=== PATIENT | female | born 1935 | race Caucasian/White ===

== ENCOUNTER → 2017-03-28 | Outpatient (CLI) | payer OTHER ==
[~2017-03-28] MED LIST: ASPEC325 PO; ATOR-24 PO; ERGO500037 PO; FERR1TAB13 PO; LEVO75TA5 PO; LORA-741 PO; RRALBUTNEB INH; TIOT1AER INH
[2017-03-28 15:00] LABS: ALT/SGPT 15 U/L (12-78); BLOOD UREA NITROGEN 16 mg/dl (7-18); BUN/CREATININE RATIO 27.9 (10-20); CARBON DIOXIDE 31 mmol/L (21-32); CHLORIDE 103 mmol/L (98-107); CREATININE 0.58 mg/dl (0.60-1.20); GLUCOSE 94 mg/dl (70-99); SODIUM 141 mmol/L (136-145)
[2017-03-28 15:03] LABS: ALB/GLOB RATIO 0.7 (0.9-2); ALKALINE PHOSPHATASE 106 U/L (45-117); AST/SGOT 25 U/L (15-37); CHOLESTEROL 140 mg/dl (0-200); CHOLESTEROL/HDL RATIO 2.5; HDL CHOLESTEROL 57 mg/dl; LDL CHOLESTEROL CALCULATED 65 mg/dl; TRIGLYCERIDES 90 mg/dl (0-150); VERY LOW DENSITY LIPOPROT CALC 18 mg/dl
[2017-03-28 15:07] LABS: CALCIUM 9.6 mg/dl (8.5-10.1)
== END | disposition home or self-care (01) ==
LOC: C.LABPVFM 08:36
PROVIDERS: ATTEND Family Medicine
DX: J44.9 Chronic obstructive pulmonary disease, unspecified (principal); E03.9 Hypothyroidism, unspecified; M81.0 Age-related osteoporosis without current pathological fracture; E78.5 Hyperlipidemia, unspecified

== ENCOUNTER → 2017-04-12 | Outpatient (CLI) | payer OTHER ==
--- NOTE | 2017-04-18 07:46 | PULMONARY FUNCTION TEST ---
Interpretation is based off ATS criteria. SPIROMETRY: Mild obstructive ventilatory disease. FVC 61%. No significant reversibility noted. LUNG VOLUMES: Signs of hyperinflation with an RV of 144%. DIFFUSION: Moderately decreased DLCO at 59% with DLCO/VA ratio at 86%. INTERPRETATION: Moderately severe obstructive ventilatory disease with possible residual volume deficit as well.
== END | disposition home or self-care (01) ==
LOC: C.RC 10:42
PROVIDERS: ATTEND Physician Assistant
DX: J44.9 Chronic obstructive pulmonary disease, unspecified (principal)

== ENCOUNTER → 2017-08-16 | Outpatient (CLI) | payer OTHER ==
[~2017-08-16] MED LIST changes: -ERGO500037 PO; -FERR1TAB13 PO
--- NOTE | 2017-08-16 16:18 | DIAGNOSTIC IMAGING REPORT ---
CT OF THE CHEST WITHOUT IV CONTRAST CLINICAL HISTORY: Lung cancer. Pulmonary nodule. COMPARISON STUDY: Chest CT September 25, 2016. CT DOSE: 203.71 mGy.cm TECHNIQUE: Axial images of the chest were obtained without IV contrast. Images were reviewed in the axial, sagittal, and coronal planes. IV contrast was not administered for this examination. A dose lowering technique was utilized adhering to the principles of ALARA. FINDINGS: Postoperative findings within the left upper lobe are noted. A left apical cavity, measuring 8.8 x 6.1 cm, is again noted. The wall is thickened and irregular. This irregularity has increased since exam of September 25, 2016. Left lung bronchiectasis is noted with multifocal mucoid impaction. There has been interval development of multifocal irregular nodules throughout the left lung since exam of September 25, 2016 with more confluent left midlung consolidation. Several nodules have a tree-in-bud configuration. Left hemithorax pleural thickening is similar to prior exams. No enlarged thoracic lymph nodes are present. A prominent prevascular lymph node, measuring 8 mm in short axis diameter, is unchanged. Size of the heart is normal. There is no pericardial effusion. There is no pneumothorax. A 6 mm right lower lobe nodule shown image 193 of 326 has increased in size since exam of September 25, 2016 when it measured 4 mm. Several additional right lung nodules are unchanged, including several small groundglass right upper lobe nodules shown best on axial image 100. No suspicious osseous lesions are present. Multiple suspected hepatic cysts and a left renal cysts are unchanged. These are suboptimally assessed on this unenhanced exam. IMPRESSION: 1. Persistent left apical cavity status post left upper lobe resection. Interval development of irregular wall thickening of the cavity and interval development of extensive irregular multifocal nodules throughout the left lung since chest CT of September 25, 2016. The findings favor an infectious process. Although statistically unlikely, tuberculosis is within the differential. A neoplastic process could appear similar although is considered less likely. Short-term imaging follow-up with a CT in one to two months is recommended. Findings discussed with Keila Hamilton at time of dictation. 2. Slight increase in size of a 6 mm right lower lobe nodule since prior exam. This nodule is indeterminate and should be assessed on subsequent studies. Electronically signed by: Jean-Paul Colunga M.D. 08/16/2017 4:16 PM Dictated Date/Time: 08/16/2017 3:25 PM
== END | disposition home or self-care (01) ==
LOC: C.CTS 15:03
PROVIDERS: ATTEND Physician Assistant
DX: C34.90 Malignant neoplasm of unspecified part of unspecified bronchus or lung (principal); R91.1 Solitary pulmonary nodule; R91.8 Other nonspecific abnormal finding of lung field; Z90.2 Acquired absence of lung [part of]

== ENCOUNTER → 2017-09-02 | Outpatient (CLI) | payer OTHER ==
[2017-09-05 11:50] LABS: QUANTIF TB AG-NIL 0.04 IU/ML; QUANTIFERON NIL 0.05 IU/ML
== END | disposition home or self-care (01) ==
LOC: C.LAB 11:14
PROVIDERS: ATTEND Internal Medicine Pulmonary Disease
DX: E55.9 Vitamin D deficiency, unspecified (principal); C34.90 Malignant neoplasm of unspecified part of unspecified bronchus or lung; R05 Cough

== ENCOUNTER → 2017-09-13 | Day surgery (SDC) | payer OTHER ==
[2017-09-13] VITALS (22 sets, daily range): BP systolic 89–157; BP diastolic 48–80; PULSE 78–99; TEMP 36.1–36.6; O2SAT 90–100; Ht 157.5 cm; Wt 34.0 kg
[~2017-09-13] VITALS: Ht 157.5 cm; Wt 34.0 kg
[~2017-09-13] MED LIST changes: +ERGO500037 PO; +FENTANYL CITRATE INJ 50 MCG/1 ML 2 ML VIAL IV ONE; +FERR1TAB13 PO; +LIDOCAINE 4% INH SOLN 4 ML BTL ONE; +LIDOCAINE HCL 2% LOCAL 50ML VIAL INFIL ONE; +MIDAZOLAM HCL 5 MG/ML 1 ML VIAL IV ONE; +MIDAZOLAM HCL 5 MG/ML 2ML VIAL IV ONE; +NURSING VERBAL MED ORDER ONE
--- NOTE | 2017-09-13 07:08 | History and Physical ---
History & Physical Date of Service Sep 13, 2017. History & Physical Reason for bronchoscopy: Left upper lobe changes History of present illness: Patient is an 82-year-old female presenting to [facility] today for bronchoscopic evaluation regarding left upper lobe changes. The patient previously had left upper lobectomy following diagnosis of non-small cell carcinoma. She has a long-standing history of smoking. Her lobectomy was completed in 2010. She does also have history of severe COPD, ischemic cardiac disease, hypothyroidism, and previous left-sided stroke. Following the patient' s previous left upper lobectomy, she did not receive any chemotherapy or postoperative radiation. She was followed with serial CT scans. It is noted that the patient was admitted to [facility] for probable pneumonia in January 2016. At that time, she had a CT scan which showed diffuse left apical consolidation with air bronchograms in multiple cavitary formation, small bilateral effusions, and severe bronchiectasis on the left. She was placed on cefepime, ertapenem, and Augmentin at that time. She underwent bronchoscopy in December 2015 which showed compression of the left mainstem. The patient has also followed with Dr. guerline cardoza after lobectomy. Patient has had multiple repeat CT scans since/year which have shown left apical cavity with scattered tree-in-bud nodules. Patient did have pulmonary function test completed in March 2017 which showed an FEV1 of 1.12 liters or 70% predicted, and FEV1/FVC ratio of 81% predicted. Market hyperinflation and air trapping was noted at that time. The patient has also lost a significant amount of weight over the past 1 year. She only weighs approximately 78 pounds. Her appetite is poor, and she has had a persistent cough, purulent sputum without hemoptysis, and early satiety. Patient underwent repeat CT scan on 08/16/2017 which showed persistent left apical cavity status post left upper lobe resection with interval development of her regular wall thickening of the cavity and extensive irregular multifocal nodules throughout the left lung which were new since the CT scan in September 2016. This patient was reviewed with Dr. Gipson. Films were reviewed by me as well. 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 Past medical history: COPD, acute URI, familial hypercholesterolemia, malignant neoplasm of the bronchus and lung, nicotine dependence, hypothyroidism, osteoporosis, weight loss Past surgical history: Leg repair, lung lobectomy Family history: Heart disease, gastric ulcer Social history: Alcohol use, current some days smoker, retired, Allergies: Tylenol/codeine #2, codeine derivatives Current medications: Lorazepam 0.5 mg up to twice daily as needed, mirtazapine 15 mg daily at bedtime , Stiolto rest per mat, atorvastatin 40 mg daily, levothyroxine 75 micrograms daily, aspirin 325 mg daily, vitamin-D 19223 units once weekly, ferrous sulfate Physical exam: General: Patient is awake, alert, cooperative, and in no acute distress. Well developed. Well-nourished. Skin: Normal appearance, texture, and temperature. No apparent rash or ecchymoses. HEENT: Normocephalic and atraumatic. Eyes are anicteric and non-erythematous. EOMI c PERRLA. Hearing intact and without difficulty. Nose appears normal and without drainage. Trachea midline. Thyroid appears normal, and neck is supple. Lungs: No respiratory distress. No accessory muscle use. Heart: Regular rate and rhythm. Extremities: No cyanosis. Musculoskeletal: Gait normal and without difficulty. Freely moving extremities during exam. Neuro: Alert and oriented X3. CN II-XII grossly intact. Sensation and motor function grossly intact. Psych: Mood and affect are normal. Assessment and plan: History of left upper lobe non-small cell carcinoma with lobectomy and cavitary lesion. Plan for bronchoscopic evaluation today.
--- NOTE | 2017-09-13 09:25 | History & Physical Bridge Note ---
H&P Re-Evaluation Bridge Note: I have examined the patient, reviewed the History & Physical and in the interval since the performance of the History & Physical I have noted the following changes of clinical significance: No changes noted
--- NOTE | 2017-09-13 09:26 | Procedure Note ---
Pre-Mod Sedation Assessment General Date of Moderate Sedation: Sep 13, 2017. Vital Signs: Vital Signs Past 12 Hours Date Time Temp Pulse Resp B/P (MAP) Pulse Ox O2 Delivery O2 Flow Rate FiO2 09/13/17 08:43 36.4 95 18 100/53 (69) 97 Room Air Review Cardiovascular: regular rate, rhythm, no edema, no gallop, no JVD, + pertinent finding Abdomen: normal bowel sounds, non tender, soft, no organomegaly Lungs: + pertinent finding (rhonchi bilaterally overload decreased left apical anterior subsegment) Pre-Sedation Airway Assessment Oral Cavity: Dentures Able to Visualize Vocal Cords: Yes Short Thick Neck: No Hx of Sleep Apnea: No Smoking Status: Light Tobacco Smoker Mallampati Classification: Class III ASA Classification: Class IV Procedure Planning Contraindications-for Mod Sed: None Yes Notes The planned sedation has been discussed with the patient and consent obtained. I have identified the patient, determined the appropriateness of sedation and have assessed the patient immediately prior to the procedure. All medicine(s) and interventions are by my order.
--- NOTE | 2017-09-13 11:01 | Procedure Note ---
Post-Moderate Sedation Plan General Date of Moderate Sedation Sep 13, 2017. Vital Signs: Vital Signs Past 12 Hours Date Time Temp Pulse Resp B/P (MAP) Pulse Ox O2 Delivery O2 Flow Rate FiO2 09/13/17 10:50 98 24 97/48 95 Mask 10.0 09/13/17 10:45 98 24 96/50 90 Mask 15.0 09/13/17 10:40 97 24 118/58 90 Mask 15.0 09/13/17 10:35 93 24 141/68 90 Mask 15.0 09/13/17 10:30 99 24 157/80 95 Mask 8.0 09/13/17 10:25 89 20 126/55 100 Mask 8.0 09/13/17 10:20 83 20 99/51 100 Mask 8.0 09/13/17 10:15 85 20 114/52 100 Mask 8.0 09/13/17 10:10 86 20 108/55 100 Mask 8.0 09/13/17 10:05 88 20 89/51 100 Mask 8.0 09/13/17 10:00 84 20 103/53 100 Room Air 09/13/17 09:55 86 20 114/56 Room Air 09/13/17 09:53 86 20 106/59 Room Air 09/13/17 09:38 36.4 95 18 100/53 97 Room Air 09/13/17 08:43 36.4 95 18 100/53 (69) 97 Room Air Review - Discharge Plan Post Moderate Sedation Plan: On clinical assessment, the patient appears to have tolerated the conscious sedation without complications. Patient is recovering as anticipated. Patient will continue to be monitored by nursing and may be discharged when conscious sedation discharge criteria are met.
--- NOTE | 2017-09-13 11:05 | Bronchoscopy Procedure Note ---
Bronchoscopy Procedure Note Procedure: Bronchoscopy, conscious sedation, bronchial washing Consent: Obtained through the patient placed into the chart Pre-procedural diagnosis: Chronic productive cough, cavitary mass Post-procedural diagnosis: Chronic productive cough, cavitary mass, tracheobronchial malacia Start time: 1020 End time: 1033 Total time: minutes Analgesia: 2% liquid lidocaine: Via nebulizer 4% gel lidocaine: Via right naris 2% liquid lidocaine: Via bronchoscopy Sedation: Versed IV: 3 mg Fentanyl IV: 50 g Procedure: The Olympus video bronchoscope was used for this procedure and passed down through the oropharynx Right naris/posterior naris/posterior oropharynx: Anatomically within normal limits Glottis: Anatomically within normal limits Vocal cords: anatomically within normal limits, with unable to fully appreciate abduction or abduction in this patient Subglottis/trachea/Bianca: Anatomically within normal limits, mild anthracotic changes noted throughout the bianca Right bronchial tree: Right mainstem bronchus: Anatomically within normal limits Right upper lobe: Anatomically within normal limits Bronchus intermedius: Anatomically within normal limits Right middle lobe: Anatomically within normal limits Right lower lobe: Anatomically within normal limits Findings: Mild anthracotic changes throughout the right bronchial tree Left bronchial tree: Left mainstem bronchus: Distal end of the left upper lobe notable severe posterior wall invagination as well some mild crescent min tracheal changes Left upper lobe: Complete obstruction unable to visualize previous surgical site Lingula: Completely obstructed unable to visualize previous surgical site Left lower lobe: Notably rotated clockwise mildly unable to visualize the takeoff to the superior subsegment and minimal visualization of the basal per minutes Mostly obstructed view secondary to tracheobronchial malacia at the takeoff/secondary bianca Findings: Significant tracheobronchial malacia at the secondary bianca Bronchial washing: Distal portion of the left mainstem EBL: None Complications: None Follow-up: ASU
--- NOTE | 2017-09-13 11:08 | Discharge Instructions ---
Discharge Instructions Date of Service Sep 13, 2017. Admission Reason for Admission: Chronic Cough, Copd Discharge Discharge Diagnosis / Problem: Tracheobronchial malacia post obstructive pneumonia Discharge Goals Goal(s): Diagnostic testing Activity Recommendations Activity Limitations: resume your previous activity . Instructions / Follow-Up Instructions / Follow-Up Follow-up with Dr. Paolo Gipson in the [facility] Current Hospital Diet Patient's current hospital diet: Discharge Diet Recommended Diet: Regular Diet Procedures Procedures Performed: Bronchoscopy, bronchial lavage, conscious sedation Pending Studies Studies pending at discharge: no Medical Emergencies . Who to Call and When: Medical Emergencies: If at any time you feel your situation is an emergency, please call 911 immediately. . Non-Emergent Contact Non-Emergency issues call your: Assistant To The Dean . . "Provider Documentation" section prepared by Sebastien Chapman. . VTE Core Measure Inpt VTE Proph given/why not?: Treatment not indicated
== END | disposition home or self-care (01) ==
LOC: C.ACU 08:18
PROVIDERS: ATTEND Internal Medicine Critical Care Medicine
DX: R91.8 Other nonspecific abnormal finding of lung field (principal); R05 Cough; J39.8 Other specified diseases of upper respiratory tract; F41.9 Anxiety disorder, unspecified; Z90.2 Acquired absence of lung [part of]; I25.10 Atherosclerotic heart disease of native coronary artery without angina pectoris; J44.9 Chronic obstructive pulmonary disease, unspecified; E78.5 Hyperlipidemia, unspecified; E03.9 Hypothyroidism, unspecified; M81.0 Age-related osteoporosis without current pathological fracture; E55.9 Vitamin D deficiency, unspecified; Z86.73 Personal history of transient ischemic attack (TIA), and cerebral infarction without residual deficits; Z85.118 Personal history of other malignant neoplasm of bronchus and lung; F17.200 Nicotine dependence, unspecified, uncomplicated; Z82.49 Family history of ischemic heart disease and other diseases of the circulatory system; Z83.79 Family history of other diseases of the digestive system

== ENCOUNTER → 2017-11-24 | Outpatient (CLI) | payer OTHER ==
[~2017-11-24] MED LIST changes: -ATOR-24 PO; -FENTANYL CITRATE INJ 50 MCG/1 ML 2 ML VIAL IV ONE; -LIDOCAINE 4% INH SOLN 4 ML BTL ONE; -LIDOCAINE HCL 2% LOCAL 50ML VIAL INFIL ONE; -MIDAZOLAM HCL 5 MG/ML 1 ML VIAL IV ONE; -MIDAZOLAM HCL 5 MG/ML 2ML VIAL IV ONE; -NURSING VERBAL MED ORDER ONE
[2017-11-24 12:41] LABS: BASO % 0.2 %; BASO ABS # 0.02 K/uL (0-0.2); EOS % 0.5 %; EOS ABS # 0.05 K/uL (0-0.5); HEMATOCRIT 37.8 % (37-47); HEMOGLOBIN 11.8 g/dL (12.0-16.0); IG# 0.04 K/uL (0.00-0.02); LYMPH ABS # 1.54 K/uL (1.2-3.4); MEAN CELL VOLUME 83.6 fL (80-100); MEAN CORPUSCULAR HEMOGLOBIN 26.1 pg (25-34); MEAN CORPUSCULAR HGB CONC 31.2 g/dl (32-36); MEAN PLATELET VOLUME 9.6 fL (7.4-10.4); MONO % 11.6 %; MONO ABS # 1.27 K/uL (0.11-0.59); NEUT % 73.3 %; NEUT ABS # 8.06 K/uL (1.4-6.5); PLATELET COUNT 413 K/uL (130-400); RED CELL DISTRIBUTION WIDTH CV 18.1 % (11.5-14.5); RED CELL DISTRIBUTION WIDTH SD 54.8 fL (36.4-46.3); WHITE BLOOD COUNT 10.98 K/uL (4.8-10.8)
[2017-11-24 13:17] LABS: ALBUMIN 2.3 gm/dl (3.4-5.0); ALT/SGPT 14 U/L (12-78); AST/SGOT 19 U/L (15-37); BLOOD UREA NITROGEN 18 mg/dl (7-18); CALCIUM 8.5 mg/dl (8.5-10.1); CARBON DIOXIDE 31 mmol/L (21-32); CREATININE 0.46 mg/dl (0.60-1.20); GLUCOSE 92 mg/dl (70-99); POTASSIUM 4.1 mmol/L (3.5-5.1); SODIUM 134 mmol/L (136-145)
[2017-11-24 13:18] LABS: ALKALINE PHOSPHATASE 91 U/L (45-117); TOTAL PROTEIN 6.1 gm/dl (6.4-8.2)
== END | disposition home or self-care (01) ==
LOC: C.LABSALHI 10:02
PROVIDERS: ATTEND Nurse Practitioner Family
DX: R10.9 Unspecified abdominal pain (principal)

== ENCOUNTER → 2018-01-03 | Outpatient (CLI) | payer BC ==
[2018-01-03 17:26] LABS: BASO % 0.2 %; BASO ABS # 0.02 K/uL (0-0.2); EOS % 0.9 %; EOS ABS # 0.09 K/uL (0-0.5); HEMATOCRIT 39.3 % (37-47); HEMOGLOBIN 12.6 g/dL (12.0-16.0); IG# 0.03 K/uL (0.00-0.02); LYMPH % 19.1 %; LYMPH ABS # 1.89 K/uL (1.2-3.4); MEAN CELL VOLUME 85.1 fL (80-100); MEAN CORPUSCULAR HEMOGLOBIN 27.3 pg (25-34); MEAN CORPUSCULAR HGB CONC 32.1 g/dl (32-36); MEAN PLATELET VOLUME 9.1 fL (7.4-10.4); MONO % 9.3 %; MONO ABS # 0.92 K/uL (0.11-0.59); NEUT % 70.2 %; NEUT ABS # 6.95 K/uL (1.4-6.5); PLATELET COUNT 594 K/uL (130-400); RED CELL DISTRIBUTION WIDTH CV 18.1 % (11.5-14.5); RED CELL DISTRIBUTION WIDTH SD 55.9 fL (36.4-46.3)
[2018-01-03 17:37] LABS: ALBUMIN 3.1 gm/dl (3.4-5.0); ALKALINE PHOSPHATASE 96 U/L (45-117); ALT/SGPT 18 U/L (12-78); AST/SGOT 24 U/L (15-37); TOTAL PROTEIN 7.8 gm/dl (6.4-8.2)
== END | disposition home or self-care (01) ==
LOC: C.LAB1850 16:03
PROVIDERS: ATTEND Internal Medicine Pulmonary Disease
DX: R05 Cough (principal)

== ENCOUNTER → 2018-01-31 | Outpatient (CLI) | payer BC ==
[2018-01-31 13:04] LABS: BASO % 0.5 %; BASO ABS # 0.04 K/uL (0-0.2); EOS % 1.4 %; EOS ABS # 0.11 K/uL (0-0.5); HEMATOCRIT 41.3 % (37-47); HEMOGLOBIN 13.1 g/dL (12.0-16.0); IG# 0.01 K/uL (0.00-0.02); LYMPH % 26.1 %; LYMPH ABS # 2.11 K/uL (1.2-3.4); MEAN CELL VOLUME 85.7 fL (80-100); MEAN CORPUSCULAR HEMOGLOBIN 27.2 pg (25-34); MEAN CORPUSCULAR HGB CONC 31.7 g/dl (32-36); MEAN PLATELET VOLUME 9.4 fL (7.4-10.4); MONO ABS # 0.89 K/uL (0.11-0.59); NEUT % 60.9 %; NEUT ABS # 4.92 K/uL (1.4-6.5); PLATELET COUNT 540 K/uL (130-400); RED CELL DISTRIBUTION WIDTH CV 15.9 % (11.5-14.5); WHITE BLOOD COUNT 8.08 K/uL (4.8-10.8)
[2018-01-31 14:03] LABS: ALBUMIN 3.2 gm/dl (3.4-5.0); ALKALINE PHOSPHATASE 96 U/L (45-117); ALT/SGPT 11 U/L (12-78); AST/SGOT 23 U/L (15-37); TOTAL PROTEIN 7.7 gm/dl (6.4-8.2)
== END | disposition home or self-care (01) ==
LOC: C.LABPVFM 11:30
PROVIDERS: ATTEND Internal Medicine Pulmonary Disease
DX: C34.90 Malignant neoplasm of unspecified part of unspecified bronchus or lung (principal)

== ENCOUNTER 2018-02-25 17:45 | Emergency (ER) | payer BC ==
[~2018-02-25] VITALS: Ht 157.5 cm; Wt 38.7 kg
[2018-02-25 17:56] VITALS: TEMP 36.6; Ht 157.5 cm; Wt 38.7 kg
[2018-02-25] MEDS ORDERED: SODIUM CHLORIDE 0.9% 500ML 500 ML IV STA (18:08)
[2018-02-25 18:25] LABS: BASO % 0.2 %; BASO ABS # 0.02 K/uL (0-0.2); EOS % 0.8 %; EOS ABS # 0.07 K/uL (0-0.5); HEMATOCRIT 36.4 % (37-47); HEMOGLOBIN 11.7 g/dL (12.0-16.0); IG# 0.02 K/uL (0.00-0.02); LYMPH % 19.2 %; LYMPH ABS # 1.72 K/uL (1.2-3.4); MEAN CELL VOLUME 82.9 fL (80-100); MEAN CORPUSCULAR HEMOGLOBIN 26.7 pg (25-34); MEAN CORPUSCULAR HGB CONC 32.1 g/dl (32-36); MEAN PLATELET VOLUME 8.6 fL (7.4-10.4); MONO % 8.9 %; NEUT % 70.7 %; NEUT ABS # 6.34 K/uL (1.4-6.5); PLATELET COUNT 420 K/uL (130-400); RED CELL DISTRIBUTION WIDTH SD 45.8 fL (36.4-46.3); WHITE BLOOD COUNT 8.97 K/uL (4.8-10.8)
[2018-02-25 18:34] LABS: INR 1.1 (0.9-1.1)
[2018-02-25 18:39] LABS: ALBUMIN 2.7 gm/dl (3.4-5.0); BLOOD UREA NITROGEN 10 mg/dl (7-18); CALCIUM 8.9 mg/dl (8.5-10.1); CARBON DIOXIDE 30 mmol/L (21-32); CREATININE 0.68 mg/dl (0.60-1.20); GLUCOSE 99 mg/dl (70-99); POTASSIUM 3.8 mmol/L (3.5-5.1); SODIUM 136 mmol/L (136-145)
[2018-02-25 18:48] LABS: ALKALINE PHOSPHATASE 88 U/L (45-117); ALT/SGPT 12 U/L (12-78); AST/SGOT 19 U/L (15-37); TOTAL PROTEIN 6.8 gm/dl (6.4-8.2)
--- NOTE | 2018-02-25 18:50 | DIAGNOSTIC IMAGING REPORT ---
HEAD CT NONCONTRAST CT DOSE: HISTORY: fall, dizzy TECHNIQUE: Multiaxial CT images of the head were performed without the use of intravenous contrast. Automated exposure control was utilized for this study. A dose lowering technique was utilized adhering to the principles of ALARA. Comparison: None. Findings: The paranasal sinuses and mastoid air cells are clear. The calvarium and skull base are intact. There is no mass, hematoma, midline shift, acute infarct. White matter hypodensity is nonspecific but suggestive of microvascular ischemic change. The ventricles and sulci demonstrate mild age-related involutional changes. Impression: No acute intracranial abnormality. Atrophy and microvascular ischemic changes. Electronically signed by: Robby Ferrell M.D. 02/25/2018 6:48 PM Dictated Date/Time: 02/25/2018 6:46 PM
--- NOTE | 2018-02-25 18:59 | DIAGNOSTIC IMAGING REPORT ---
CERVICAL SPINE CT CT DOSE: 934.00 mGy.cm HISTORY: Neck pain. fall, dizzy TECHNIQUE: Multiaxial CT images of the cervical spine were performed and reformatted in the sagittal and coronal plane without the use of contrast. A dose lowering technique was utilized adhering to the principles of ALARA. COMPARISON: Neck CT 01/03/2011. FINDINGS: No fractures. No subluxation. Prevertebral soft tissues and the C1-C2 interval are intact. No pneumothorax. Large left apical cavitary lesion is again noted. Stable scarlike densities within the right lung apex. Severe disc space narrowing at C5-C6 and C6-C7. IMPRESSION: No fractures within the cervical spine. Left lung cavitary lesion remains unchanged. Electronically signed by: Robby Ferrell M.D. 02/25/2018 6:58 PM Dictated Date/Time: 02/25/2018 6:54 PM
[2018-02-25] MEDS ORDERED: CHOL20009 PO (19:33)
[2018-02-25] MEDS ORDERED: DOCU-94 PO (19:33)
[2018-02-25] MEDS ORDERED: LVS125 SL (19:33)
[2018-02-25] MEDS ORDERED: ACET-1256 PO (19:33)
[2018-02-25] MEDS ORDERED: OXGN (19:33)
[2018-02-25] MEDS ORDERED: AZIT500T3 PO (19:33)
[2018-02-25] MEDS ORDERED: ATV5X PO (19:33)
[2018-02-25] MEDS ORDERED: ZFRODT4HP PO (19:33)
[2018-02-25] MEDS ORDERED: ASPI325T39 PO (19:33)
[2018-02-25] MEDS ORDERED: RXNS10 PO (19:33)
[2018-02-25] MEDS ORDERED: KLN5X PO (19:33)
[2018-02-25] MEDS ORDERED: ETHA1TAB8 PO (19:33)
[2018-02-25] MEDS ORDERED: HALO2TAB PO (19:33)
--- NOTE | 2018-02-25 19:50 | DIAGNOSTIC IMAGING REPORT ---
PELVIS 1 OR 2 VIEW ROUTINE CLINICAL HISTORY: fall, leg weakness COMPARISON STUDY: None. FINDINGS: The patient's left hand partially obscures the proximal left femur. However, no definite fracture or dislocation within the pelvis or hips. The sacrum appears intact. The bones are osteopenic. IMPRESSION: No definite fracture or dislocation within the pelvis or hips. Electronically signed by: Robby Ferrell M.D. 02/25/2018 7:48 PM Dictated Date/Time: 02/25/2018 7:47 PM
--- NOTE | 2018-02-25 19:56 | DIAGNOSTIC IMAGING REPORT ---
R RIBS UNILATERAL WITH PA CHEST CLINICAL HISTORY: fall, right rib pain COMPARISON STUDY: Chest CT 08/16/2017. FINDINGS: Emphysema. Large left upper lobe cavitary lesion persists. No pneumothorax. Bilateral nodular and reticular densities have progressed. Trace left pleural effusion. The bones are osteopenic. No acute rib fractures. IMPRESSION: 1. No acute rib fractures. No pneumothorax. 2. Large left upper lobe cavitary lesion persists. 3. Bilateral nodular and reticular densities have progressed. Electronically signed by: Robby Ferrell M.D. 02/25/2018 7:54 PM Dictated Date/Time: 02/25/2018 7:51 PM
[2018-02-25] MEDS ORDERED: ALUMINUM/MAGNESIUM SUSP 30 ML UDC PO STA (20:49)
[2018-02-25] MEDS ORDERED: OPTIRAY 320 IV PRN (21:30)
--- NOTE | 2018-02-25 23:03 | DIAGNOSTIC IMAGING REPORT ---
CHEST CTA for PULMONARY ARTERIES CT DOSE: 186.29 mGy.cm HISTORY: Atypical chest pain. TECHNIQUE: Multiaxial CT images of the chest were performed following the intravenous administration of contrast to evaluate the pulmonary arteries. Maximal intensity projection images were also obtained. A dose lowering technique was utilized adhering to the principles of ALARA. COMPARISON STUDY: Chest CT 08/16/2017. FINDINGS: There is motion artifact resulting in suboptimal evaluation of the chest. No definite acute fractures within the visualized osseous structures. Multiple irregular and nodular densities within the right lung have progressed. There appears to be a small developing cavitary focus within the right lung apex which measures 1 cm. This is new from the prior study. The large left upper lobe cavitary lesion has also increased in size. This contains a thickened and nodular/irregular wall. This includes the majority of the left upper lobe and extends into the lingula. Multiple additional irregular and nodular densities within the left lower lobe are similar to the prior study. Partial opacification of the left lower lobe bronchi. Dominant left lower lobe nodule continues to measure 1.4 cm. No pleural effusions. Stable 1 cm hypodense lesion within the liver. The spleen is unremarkable. Stable 11 mm hypodense lesion within the upper pole of the left kidney. The heart is normal in size. No pericardial effusion. Normal caliber thoracic aorta with no evidence for dissection. The left lung pulmonary arteries are hypoplastic compared to the right. The visualized pulmonary arteries show no filling defects to suggest pulmonary embolus. Of note, some of the segmental and subsegmental pulmonary arteries are nondiagnostic due to the respiratory motion. IMPRESSION: 1. No evidence for pulmonary embolus with limitations as described above. 2. Increase in size in the large left upper lobe cavitary lesion. This demonstrates an irregular and thickened nodular wall. This could be due to a long-standing infectious process. Tuberculosis would also be in the differential diagnosis. In addition, a neoplastic process cannot be excluded. The left lower lobe irregular and nodular densities persist. 3. Progressive irregular and nodular densities within the right lung including a small developing 1 cm cavitary focus within the right upper lobe. Again, this favors a chronic infectious process. Electronically signed by: Robby Ferrell M.D. 02/25/2018 11:02 PM Dictated Date/Time: 02/25/2018 10:53 PM
--- NOTE | 2018-02-25 23:12 | EMERGENCY ROOM VISIT NOTE ---
History Report prepared by Rylan: Deepthi Crawford Under the Supervision of: Dr. Kristin Lomeli D.O. First contact with patient: 17:53 Stated Complaint: CHEST PAIN History of Present Illness The patient is an 83 year old female who presents to the Emergency Room with complaints of persistent chest pain starting yesterday. The patient presents to the ED by EMS. She describes the pain as sharp. It has been on the right side of her chest, then the left side of her chest, and then across her chest. The patient reports that she fell 3 weeks ago while she was turning. She did not trip on anything and was unsure why she fell. She landed on her buttocks. She denies any head injury or LOC. Since falling, she has felt worsening dizziness with standing. She feels like the room is spinning. The dizziness resolves after a while. Her legs have also been shaky after standing. She has felt too weak to stand up sometimes. She uses a walker to ambulate. She reports nausea, but no vomiting. She reports right hip pain. She drinks soda with her medications. She otherwise does not drink much water. She denies any arm pain, leg pain, change in bowel movement, or urinary symptoms. She is a former smoker of 50 years. 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 She is on hospice. Patient is a difficult historian. Source of History: patient Onset: yesterday Position: chest Quality: sharp Timing: other (persistent) Associated Symptoms: + nausea, + weakness, No LOC, No vomiting, No urinary symptoms Note: Pt reports dizziness. Review of Systems See HPI for pertinent positives & negatives. A total of 10 systems reviewed and were otherwise negative. 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 Family History Cancer Heart disease Social History Smoking Status: Light Tobacco Smoker Alcohol Use: none Drug Use: none Marital Status: Housing Status: lives with family Occupation Status: retired Current/Historical Medications Scheduled Acetaminophen (Tylenol), 500 MG PO PRN Aspirin (Aspirin Ec), 325 MG PO DAILY Azithromycin (Azithromycin), 500 MG PO 2XWK Cholecalciferol (Vitamin D), 2,000 UNITS PO DAILY Clonazepam (Clonazepam), 2.5 TABS PO DAILY Docusate Sodium (Colace), 1 CAP PO PRN Ethambutol Hcl (Ethambutol Hcl), 800 MG PO 2XWK Ferrous Sulfate (Kp Ferrous Sulfate), 1 TAB PO DAILY Home O2 Therapy (Oxygen), 2 LITERS NA PRN Levothyroxine Sodium (Levothyroxine Sodium), 75 MCG PO QAM Scheduled PRN Haloperidol (Haloperidol), 2 MG PO Q4-6HRS PRN for NAUSEA/AGITATION Hyoscyamine Sulfate (Hyoscyamine Sulfate), 0.125 MG SL Q6 PRN for EXCESS SECRETIONS Lorazepam (Lorazepam), 0.5 MG PO Q4 PRN for Anxiety Morphine Sulfate (Morphine Sulfate), 0.25-0.5 ML PO Q1H PRN for Pain Ondansetron (Ondansetron Odt), 4 MG PO Q6 PRN for Nausea Allergies Coded Allergies: Codeine (Verified Adverse Reaction, Mild, HALLUCINATIONS, 09/13/17) SEE DINOSUARS Physical Exam Vital Signs Date Time Temp Pulse Resp B/P (MAP) Pulse Ox O2 Delivery O2 Flow Rate FiO2 02/25/18 23:25 81 20 124/84 96 02/25/18 22:15 84 02/25/18 22:10 87 20 158/57 93 Room Air 02/25/18 21:01 79 20 155/66 94 Room Air 02/25/18 19:55 78 20 134/67 93 Room Air 80 144/75 97 149/83 02/25/18 19:40 86 20 141/68 95 Room Air 02/25/18 17:59 93 Room Air 02/25/18 17:56 36.6 91 20 143/72 93 Room Air 02/25/18 17:55 88 Physical Exam GENERAL: alert, thin, cachectic appearing, no distress, non-toxic EYE EXAM: normal conjunctiva, PERRL and EOM's grossly intact OROPHARYNX: no exudate, no erythema, lips, buccal mucosa, and tongue normal and mucous membranes are moist NECK: supple, no nuchal rigidity, no adenopathy, non-tender CHEST: No crepitus. No reproducible pain with palpation of chest wall or ribs. LUNGS: Decreased breath sounds worse on the left than the right. No wheezes, rhonchi, rales. Normal chest wall mechanics. HEART: no murmurs, S1 normal and S2 normal ABDOMEN: abdomen soft, non-tender, normo-active bowel sounds, no masses, no rebound or guarding. BACK: Back is symmetrical on inspection and there is no deformity, no midline tenderness, no CVA tenderness. SKIN: no rashes and no bruising UPPER EXTREMITIES: upper extremities are grossly normal. No acute trauma or deformity noted bilaterally. LOWER EXTREMITIES: No pitting edema. Left knee has multiple prior well healed surgical incisions. Pain with palpation which patient states is chronic. No acute trauma or deformity noted bilaterally. NEURO EXAM: Normal sensorium, cranial nerves II-XII grossly intact, normal speech, no gross weakness of arms, no gross weakness of legs. Medical Decision & Procedures ER Provider Diagnostic Interpretation: Radiology results have been interpreted by the radiologist and reviewed by me. R RIBS UNILATERAL WITH PA CHEST CLINICAL HISTORY: fall, right rib pain COMPARISON STUDY: Chest CT 08/16/2017. FINDINGS: Emphysema. Large left upper lobe cavitary lesion persists. No pneumothorax. Bilateral nodular and reticular densities have progressed. Trace left pleural effusion. The bones are osteopenic. No acute rib fractures. IMPRESSION: 1. No acute rib fractures. No pneumothorax. 2. Large left upper lobe cavitary lesion persists. 3. Bilateral nodular and reticular densities have progressed. Electronically signed by: Robby Ferrell M.D. 02/25/2018 7:54 PM Dictated Date/Time: 02/25/2018 7:51 PM PELVIS 1 OR 2 VIEW ROUTINE CLINICAL HISTORY: fall, leg weakness COMPARISON STUDY: None. FINDINGS: The patient's left hand partially obscures the proximal left femur. However, no definite fracture or dislocation within the pelvis or hips. The sacrum appears intact. The bones are osteopenic. IMPRESSION: No definite fracture or dislocation within the pelvis or hips. Electronically signed by: Robby Ferrell M.D. 02/25/2018 7:48 PM Dictated Date/Time: 02/25/2018 7:[address]AST CT DOSE: HISTORY: fall, dizzy TECHNIQUE: Multiaxial CT images of the head were performed without the use of intravenous contrast. Automated exposure control was utilized for this study. A dose lowering technique was utilized adhering to the principles of ALARA. Comparison: None. Findings: The paranasal sinuses and mastoid air cells are clear. The calvarium and skull base are intact. There is no mass, hematoma, midline shift, acute infarct. White matter hypodensity is nonspecific but suggestive of microvascular ischemic change. The ventricles and sulci demonstrate mild age-related involutional changes. Impression: No acute intracranial abnormality. Atrophy and microvascular ischemic changes. Electronically signed by: Robby Ferrell M.D. 02/25/2018 6:48 PM Dictated Date/Time: 02/25/2018 6:[address] DOSE: 934.00 mGy.cm HISTORY: Neck pain. fall, dizzy TECHNIQUE: Multiaxial CT images of the cervical spine were performed and reformatted in the sagittal and coronal plane without the use of contrast. A dose lowering technique was utilized adhering to the principles of ALARA. COMPARISON: Neck CT 01/03/2011. FINDINGS: No fractures. No subluxation. Prevertebral soft tissues and the C1-C2 interval are intact. No pneumothorax. Large left apical cavitary lesion is again noted. Stable scarlike densities within the right lung apex. Severe disc space narrowing at C5-C6 and C6-C7. IMPRESSION: No fractures within the cervical spine. Left lung cavitary lesion remains unchanged. Electronically signed by: Robby Ferrell M.D. 02/25/2018 6:58 PM Dictated Date/Time: 02/25/2018 6:54 PM CHEST CTA for PULMONARY ARTERIES CT DOSE: 186.29 mGy.cm HISTORY: Atypical chest pain. TECHNIQUE: Multiaxial CT images of the chest were performed following the intravenous administration of contrast to evaluate the pulmonary arteries. Maximal intensity projection images were also obtained. A dose lowering technique was utilized adhering to the principles of ALARA. COMPARISON STUDY: Chest CT 08/16/2017. FINDINGS: There is motion artifact resulting in suboptimal evaluation of the chest. No definite acute fractures within the visualized osseous structures. Multiple irregular and nodular densities within the right lung have progressed. There appears to be a small developing cavitary focus within the right lung apex which measures 1 cm. This is new from the prior study. The large left upper lobe cavitary lesion has also increased in size. This contains a thickened and nodular/irregular wall. This includes the majority of the left upper lobe and extends into the lingula. Multiple additional irregular and nodular densities within the left lower lobe are similar to the prior study. Partial opacification of the left lower lobe bronchi. Dominant left lower lobe nodule continues to measure 1.4 cm. No pleural effusions. Stable 1 cm hypodense lesion within the liver. The spleen is unremarkable. Stable 11 mm hypodense lesion within the upper pole of the left kidney. The heart is normal in size. No pericardial effusion. Normal caliber thoracic aorta with no evidence for dissection. The left lung pulmonary arteries are hypoplastic compared to the right. The visualized pulmonary arteries show no filling defects to suggest pulmonary embolus. Of note, some of the segmental and subsegmental pulmonary arteries are nondiagnostic due to the respiratory motion. IMPRESSION: 1. No evidence for pulmonary embolus with limitations as described above. 2. Increase in size in the large left upper lobe cavitary lesion. This demonstrates an irregular and thickened nodular wall. This could be due to a long-standing infectious process. Tuberculosis would also be in the differential diagnosis. In addition, a neoplastic process cannot be excluded. The left lower lobe irregular and nodular densities persist. 3. Progressive irregular and nodular densities within the right lung including a small developing 1 cm cavitary focus within the right upper lobe. Again, this favors a chronic infectious process. Electronically signed by: Robby Ferrell M.D. 02/25/2018 11:02 PM Dictated Date/Time: 02/25/2018 10:53 PM Laboratory Results 02/25/18 18:15 Red Blood Count 4.39, Mean Corpuscular Volume 82.9, Mean Corpuscular Hemoglobin 26.7, Mean Corpuscular Hemoglobin Concent 32.1, Mean Platelet Volume 8.6, Neutrophils (%) (Auto) 70.7, Lymphocytes (%) (Auto) 19.2, Monocytes (%) (Auto) 8.9, Eosinophils (%) (Auto) 0.8, Basophils (%) (Auto) 0.2, Neutrophils # (Auto) 6.34, Lymphocytes # (Auto) 1.72, Monocytes # (Auto) 0.80, Eosinophils # (Auto) 0.07, Basophils # (Auto) 0.02 02/25/18 18:15 Test 02/25/18 18:15 02/25/18 18:25 02/25/18 18:36 White Blood Count 8.97 K/uL (4.8-10.8) Red Blood Count 4.39 M/uL (4.2-5.4) Hemoglobin 11.7 g/dL (12.0-16.0) Hematocrit 36.4 % (37-47) Mean Corpuscular Volume 82.9 fL (80-100) Mean Corpuscular Hemoglobin 26.7 pg (25-34) Mean Corpuscular Hemoglobin Concent 32.1 g/dl (32-36) Platelet Count 420 K/uL (130-400) Mean Platelet Volume 8.6 fL (7.4-10.4) Neutrophils (%) (Auto) 70.7 % Lymphocytes (%) (Auto) 19.2 % Monocytes (%) (Auto) 8.9 % Eosinophils (%) (Auto) 0.8 % Basophils (%) (Auto) 0.2 % Neutrophils # (Auto) 6.34 K/uL (1.4-6.5) Lymphocytes # (Auto) 1.72 K/uL (1.2-3.4) Monocytes # (Auto) 0.80 K/uL (0.11-0.59) Eosinophils # (Auto) 0.07 K/uL (0-0.5) Basophils # (Auto) 0.02 K/uL (0-0.2) RDW Standard Deviation 45.8 fL (36.4-46.3) RDW Coefficient of Variation 15.0 % (11.5-14.5) Immature Granulocyte % (Auto) 0.2 % Immature Granulocyte # (Auto) 0.02 K/uL (0.00-0.02) Prothrombin Time 11.4 SECONDS (9.0-12.0) Prothromb Time International Ratio 1.1 (0.9-1.1) Anion Gap 5.0 mmol/L (3-11) Est Creatinine Clear Calc Drug Dose 37.6 ml/min Estimated GFR () 93.1 Estimated GFR (Non- 80.3 BUN/Creatinine Ratio 14.3 (10-20) Calcium Level 8.9 mg/dl (8.5-10.1) Magnesium Level 1.8 mg/dl (1.8-2.4) Total Bilirubin 0.3 mg/dl (0.2-1) Aspartate Amino Transf (AST/SGOT) 19 U/L (15-37) Alanine Aminotransferase (ALT/SGPT) 12 U/L (12-78) Alkaline Phosphatase 88 U/L (45-117) Troponin I < 0.015 ng/ml (0-0.045) Pro-B-Type Natriuretic Peptide 272 pg/ml (0-1800) Total Protein 6.8 gm/dl (6.4-8.2) Albumin 2.7 gm/dl (3.4-5.0) Globulin 4.1 gm/dl (2.5-4.0) Albumin/Globulin Ratio 0.7 (0.9-2) Thyroid Stimulating Hormone (TSH) 0.532 uIu/ml (0.300-4.500) D-Dimer 820 ug/L FEU (0-500) Urine Color YELLOW Urine Appearance CLEAR (CLEAR) Urine pH 6.5 (4.5-7.5) Urine Specific [place] 1.006 (1.000-1.030) Urine Protein NEG (NEG) Urine Glucose (UA) NEG (NEG) Urine Ketones NEG (NEG) Urine Occult Blood NEG (NEG) Urine Nitrite NEG (NEG) Urine Bilirubin NEG (NEG) Urine Urobilinogen NEG (NEG) Urine Leukocyte Esterase NEG (NEG) Laboratory results per my review. Medications Administered Medications (Trade) Dose Ordered Sig/Sabra Route Start Time Stop Time Status Last Admin Dose Admin Sodium Chloride 500 ml @ 999 mls/hr Q31M STAT IV 02/25/18 18:08 02/25/18 18:38 DC 02/25/18 18:20 999 MLS/HR Al Hydroxide/Mg Hydroxide (Maalox Susp) 30 ml NOW STAT PO 02/25/18 20:49 02/25/18 20:50 DC 02/25/18 20:59 30 ML ECG Per My Interpretation Indication: chest pain Rate (beats per minute): 88 Rhythm: sinus rhythm Findings: no acute ischemic change, no ectopy, other (normal axis, normal intervals) ED Course 1754: The patient was evaluated in room B7. A complete history and physical exam was performed. 1807: Sodium Chloride 500 ml @ 999 mls/hr IV. 1957: I reevaluated the patient. I updated her on the results. Son states he is concerned with the fact that patient had recently been placed on hospice and they are uncertain why. He states there was some debate as to whether or not her lung issues were related to malignancy versus infection. 2034: Records obtained from [facility] and recent pulmonary consultation with Dr. Gipson. 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 2037: I reevaluated the patient. 2048: Maalox Susp 30 ml PO. 2308: Upon reevaluation, the patient is feeling better. I discussed the findings and the treatment plan with the patient. She verbalizes agreement and understanding. She was discharged home. Medical Decision Differential diagnoses includes but is not limited to acute coronary syndrome, myocardial infarction, pericarditis, pulmonary embolus, aortic dissection, pneumonia, pneumothorax, musculoskeletal, shingles, esophageal. Patient cachectic appearing here, no hypoxia and vital signs stable. Patient's labs and imaging here reassuring. CT of the chest again reveals known lung abnormalities as previously seen. Patient is taking medications consistent with pulmonology notes for treatment of DONYA. No evidence of PE, postobstructive pneumonia, or other acute pathology secondary to possible malignancy. I do not suspect cardiac etiology. No evidence of bacteremia/ sepsis. Patient with no other apparent injuries secondary to trauma several weeks ago. I do not suspect other occult traumatic injury. I had lengthy bedside discussion with the patient and her son regarding her current plan of care as well as need for additional follow-up with pulmonology to better identify her treatment plan. Discussed continuing her usual medications as prescribed at this time. Discussed symptoms to watch and return for, they verbalized understanding and were agreeable to plan. Medication Reconcilliation Current Medication List: was personally reviewed by me Blood Pressure Screening Patient's blood pressure: Elevated blood pressure Impression Primary Impression: Chest pain Additional Impression: Fall Scribe Attestation The scribe's documentation has been prepared under my direction and personally reviewed by me in its entirety. I confirm that the note above accurately reflects all work, treatment, procedures, and medical decision making performed by me. Departure Information Dispostion Home / Self-Care Referrals Alva Cason,C.R.N.P. (PCP) Additional Instructions Please continue your regular medications as prescribed. Please keep your follow -up appointment with the lung doctor next week and discuss with them your recent symptoms and have them review the pictures of your chest from [facility]. Please make sure you are eating and drinking regularly and staying well- hydrated with plenty of water. Please exercise caution when changing position and go slowly when you first set up or stand up. Please use a cane or walker at all times to help avoid any recurrent falls. If you have any other new or concerning symptoms, please return the emergency room. Problem Qualifiers Primary Impression: Chest pain Chest pain type: unspecified Qualified Codes: R07.9 - Chest pain, unspecified Additional Impression: Fall Encounter type: initial encounter Qualified Codes: W19.XXXA - Unspecified fall, initial encounter
[2018-02-25 23:25] VITALS: BP 124/84; PULSE 81; O2SAT 96
== END 2018-02-25 23:25 | disposition home or self-care (01) ==
LOC: EDBD 17:45 → C.EDB 17:46
DX: R07.9 Chest pain, unspecified (principal); W19.XXXA Unspecified fall, initial encounter; I10 Essential (primary) hypertension; F17.200 Nicotine dependence, unspecified, uncomplicated; Z79.82 Long term (current) use of aspirin; Z79.899 Other long term (current) drug therapy; Z88.5 Allergy status to narcotic agent

== ENCOUNTER → 2018-03-02 | Outpatient (CLI) | payer BC ==
[~2018-03-02] MED LIST changes: +ACET-1256 PO; -ASPEC325 PO; +ASPI325T39 PO; +ATV5X PO; +AZIT500T3 PO; +CHOL20009 PO; +DOCU-94 PO; -ERGO500037 PO; +ETHA1TAB8 PO; +HALO2TAB PO; +KLN5X PO; -LORA-741 PO; +LVS125 SL; +OXGN; -RRALBUTNEB INH; +RXNS10 PO; -TIOT1AER INH; +ZFRODT4HP PO
[2018-03-02 12:28] LABS: BASO % 0.5 %; BASO ABS # 0.03 K/uL (0-0.2); EOS ABS # 0.18 K/uL (0-0.5); HEMATOCRIT 36.3 % (37-47); HEMOGLOBIN 11.2 g/dL (12.0-16.0); IG# 0.01 K/uL (0.00-0.02); LYMPH % 26.2 %; LYMPH ABS # 1.57 K/uL (1.2-3.4); MEAN CELL VOLUME 85.2 fL (80-100); MEAN CORPUSCULAR HEMOGLOBIN 26.3 pg (25-34); MEAN CORPUSCULAR HGB CONC 30.9 g/dl (32-36); MEAN PLATELET VOLUME 8.8 fL (7.4-10.4); MONO % 10.7 %; MONO ABS # 0.64 K/uL (0.11-0.59); NEUT % 59.4 %; NEUT ABS # 3.57 K/uL (1.4-6.5); PLATELET COUNT 454 K/uL (130-400); RED CELL DISTRIBUTION WIDTH CV 15.5 % (11.5-14.5); RED CELL DISTRIBUTION WIDTH SD 47.9 fL (36.4-46.3)
[2018-03-02 13:13] LABS: ALBUMIN 2.6 gm/dl (3.4-5.0); ALKALINE PHOSPHATASE 79 U/L (45-117); ALT/SGPT 11 U/L (12-78); AST/SGOT 20 U/L (15-37); TOTAL PROTEIN 6.3 gm/dl (6.4-8.2)
== END | disposition home or self-care (01) ==
LOC: C.LABSALHI 12:28
PROVIDERS: ATTEND Internal Medicine Pulmonary Disease
DX: C34.90 Malignant neoplasm of unspecified part of unspecified bronchus or lung (principal)

== ENCOUNTER → 2018-03-30 | Outpatient (CLI) | payer BC ==
[2018-03-30 12:39] LABS: BASO % 0.6 %; BASO ABS # 0.04 K/uL (0-0.2); EOS % 2.8 %; EOS ABS # 0.18 K/uL (0-0.5); HEMATOCRIT 38.8 % (37-47); HEMOGLOBIN 12.1 g/dL (12.0-16.0); IG# 0.01 K/uL (0.00-0.02); LYMPH ABS # 2.13 K/uL (1.2-3.4); MEAN CELL VOLUME 83.6 fL (80-100); MEAN CORPUSCULAR HEMOGLOBIN 26.1 pg (25-34); MEAN CORPUSCULAR HGB CONC 31.2 g/dl (32-36); MEAN PLATELET VOLUME 9.3 fL (7.4-10.4); MONO % 13.2 %; MONO ABS # 0.85 K/uL (0.11-0.59); NEUT % 50.2 %; NEUT ABS # 3.24 K/uL (1.4-6.5); PLATELET COUNT 468 K/uL (130-400); RED CELL DISTRIBUTION WIDTH CV 15.1 % (11.5-14.5); RED CELL DISTRIBUTION WIDTH SD 46.2 fL (36.4-46.3); WHITE BLOOD COUNT 6.45 K/uL (4.8-10.8)
[2018-03-30 13:06] LABS: ALBUMIN 2.8 gm/dl (3.4-5.0); ALKALINE PHOSPHATASE 85 U/L (45-117); ALT/SGPT 11 U/L (12-78); AST/SGOT 19 U/L (15-37); TOTAL PROTEIN 6.8 gm/dl (6.4-8.2)
== END | disposition home or self-care (01) ==
LOC: C.LABSALHI 08:32
PROVIDERS: ATTEND Internal Medicine Pulmonary Disease
DX: C34.90 Malignant neoplasm of unspecified part of unspecified bronchus or lung (principal)

== ENCOUNTER → 2018-06-01 | Outpatient (CLI) | payer BC ==
[~2018-06-01] MED LIST changes: -ACET-1256 PO; +ASCO1CAP3 PO; +BUPR-79 PO; -DOCU-94 PO; -HALO2TAB PO; -LVS125 SL; +ONDA4TAB10 SL; -RXNS10 PO; +VNTHFA/IN INH; -ZFRODT4HP PO
[2018-06-01 13:30] LABS: BASO % 0.4 %; BASO ABS # 0.02 K/uL (0-0.2); EOS % 2.9 %; EOS ABS # 0.15 K/uL (0-0.5); HEMATOCRIT 39.2 % (37-47); HEMOGLOBIN 11.9 g/dL (12.0-16.0); IG# 0.01 K/uL (0.00-0.02); LYMPH % 24.1 %; LYMPH ABS # 1.23 K/uL (1.2-3.4); MEAN CELL VOLUME 84.5 fL (80-100); MEAN CORPUSCULAR HEMOGLOBIN 25.6 pg (25-34); MEAN CORPUSCULAR HGB CONC 30.4 g/dl (32-36); MEAN PLATELET VOLUME 9.1 fL (7.4-10.4); MONO % 13.3 %; MONO ABS # 0.68 K/uL (0.11-0.59); NEUT % 59.1 %; NEUT ABS # 3.01 K/uL (1.4-6.5); PLATELET COUNT 399 K/uL (130-400); RED CELL DISTRIBUTION WIDTH CV 16.4 % (11.5-14.5); RED CELL DISTRIBUTION WIDTH SD 50.9 fL (36.4-46.3)
[2018-06-01 13:52] LABS: ALBUMIN 2.8 gm/dl (3.4-5.0); ALKALINE PHOSPHATASE 85 U/L (45-117); ALT/SGPT 12 U/L (12-78); AST/SGOT 22 U/L (15-37); TOTAL PROTEIN 6.4 gm/dl (6.4-8.2)
== END | disposition home or self-care (01) ==
LOC: C.LABSALHI 11:30
PROVIDERS: ATTEND Internal Medicine Pulmonary Disease
DX: C34.90 Malignant neoplasm of unspecified part of unspecified bronchus or lung (principal)

== ENCOUNTER 2019-03-01 09:48 | Inpatient (IN) ==
--- NOTE | 2019-03-01 10:23 | XRay Report ---
XR hip RT 2-3V w pelvis CLINICAL HISTORY: fall. Right hip pain. COMPARISON STUDY: Pelvis 02/25/2018. FINDINGS: Slightly impacted subcapital right femoral neck fracture. No dislocation. The bones are ost eopenic. The pelvic bones are intact. No fracture or dislocation within the left hip. IMPRESSION: Slightly impacted subcapital right femoral neck fracture. Electronically signed by: Robby Ferrell M.D. 03/01/2019 10:22 AM
--- NOTE | 2019-03-01 10:25 | XRay Report ---
XR chest 1V portable HISTORY: fall COMPARISON: Chest 02/24/2019. FINDINGS: No pneumothorax. No pleural effusions. The heart remains mildly enlarged. Mild left mediast inal shift, unchanged. Left greater than right chronic reticulonodular interstitial thickening persis ts. Left apical pleural thickening and a left apical cavitation remains unchanged. Emphysema. IMPRESSION: No change compared the prior study. Chronic changes as described above. Electronically signed by: Robby Ferrell M.D. 03/01/2019 10:23 AM
--- NOTE | 2019-03-01 10:45 | Emergency Department Note ---
Entered by Chloé Roberts acting as a scribe for Maxwell Galarza DO History of Present Illness General Chief complaint: Hip Pain Stated complaint: fall/ R hip pain Source: patient and EMS Mode of arrival: EMS History of Present Illness Onset (ago): hour(s) (this morning) Location: head Pain Consistency: + other (episode) Maximum Pain Intensity: 5 Quality: + other (fall) Associated symptoms: + denies other symptoms (head injuries, abdominal pain) and + other (right hip pain) The patient is a 85 year old female that is presenting to the Emergency Room with complaints of a fall that occurred this morning. The patient was brought in by EMS who provided part of the history of the patients current illness. The EMS reports that the patient fell while cleaning her room at [facility]. The EMS states that the patient complains of right hip pain but that the pain improves when she lies still. The patient denies hitting her head. EMS notes that she is usually only on O2 in her room at the facility but that they put her on O2 because her O2 sat was 82 on room air when she was picked up. The patient denies any abdominal pain. The facilities nursing staff is unsure if she hit her head during the fall. The EMS reports that the patient had a test for Alzheimers yesterday but the results have not come in yet. The patient reports she has a history of left hip pain. EMS notes that the facility staff did not want to move the patient due to the fall so they did no testing on her there. Home Medications Home Medications Medication Instructions Recorded Confirmed Type acetaminophen [Tylenol Extra 500 mg PO UD PRN 11/15/18 03/01/19 History Strength] albuterol sulfate [Ventolin HFA] 2 puff INHALATION Q6 PRN 11/15/18 03/01/19 History aspirin 325 mg PO DAILY 11/15/18 03/01/19 History azithromycin [Zithromax] 500 mg PO 4XWK 11/15/18 03/01/19 History cholecalciferol (vitamin D3) 2,000 unit PO DAILY 11/15/18 03/01/19 History [Vitamin D3] clonazepam [Klonopin] 0.25 mg PO BID 11/15/18 03/01/19 History docusate sodium [Colace] 100 mg PO UD PRN 11/15/18 03/01/19 History ethambutol [Myambutol] 800 mg PO 3XWK 11/15/18 03/01/19 History levothyroxine [Synthroid] 75 mcg PO QAM 11/15/18 03/01/19 History ondansetron 4 mg TRANSLINGUAL QID PRN 11/15/18 03/01/19 History ranitidine HCl 75 mg PO BID 11/15/18 03/01/19 History donepezil 10 mg PO DAILY 03/01/19 03/01/19 History Allergies Allergy/AdvReac Type Severity Reaction Status Date / Time morphine AdvReac Intermediate VOMITING Verified 03/01/19 10:30 codeine AdvReac Mild HALLUCINATI Verified 03/01/19 10:30 ONS Past Med/Surg History Medical History H/O: lung cancer Hypothyroidism Abnormal CT of the chest (Resolved) Acute bronchitis (Resolved) Chest wall contusion (Resolved) Fall (Resolved) Nausea and vomiting (Resolved) PNA (pneumonia) (Resolved) Right rib fracture (Resolved) COPD (chronic obstructive pulmonary disease) Surgical History S/P cataract surgery S/P hysterectomy S/P lobectomy of lung S/P total knee replacement Family History Other Family history non-contributory Social History Preferred Language: Com[place] Communication Ability: Effective Pen Ruler Operator Required: No Beliefs That Will Affect Care: None Current Living Situation: Alone and Personal Care Facility Current Living Situation Comment: lives at [facility] current occupational status: retired Other Information That Helps Us Care for You: No Feels Safe at Home: Yes Safety Concerns: Feels Safe At This Time Smoking Status: Former smoker Do You Dip or Chew Tobacco: No Second Hand Exposure: No Tobacco Cessation Education Requested by Patient: No Hx Alcohol Use: No Hx Substance Use: No Review of Systems See HPI for pertinent positives & negatives. and A total of 10 systems reviewed and were otherwise negative Physical Exam Vital Signs Vital Signs - 24 hr 03/01/19 09:54 03/01/19 09:59 03/01/19 10:01 Temperature 36.4 C L Temperature Source Oral Sepsis Recent Fever Within 48 Hours No Sepsis Action Taken by Nursing No Action Required Pulse Rate 78 84 77 Pulse Rate [Finger] Pulse Rate from SpO2 Sensor 78 77 Pulse Rhythm [Finger] Pulse Strength [Finger] Respiratory Rate 32 H 24 31 H Respiratory Effort / Characteristics Respiratory Depth Respiratory Pattern Blood Pressure 190/77 H 190/77 H 180/93 H Blood Pressure [Right Arm] Blood Pressure Mean 114 114 122 Blood Pressure Mean [Right Arm] Blood Pressure Position Sitting Blood Pressure Position [Right Arm] Pulse Oximetry 96 99 100 Oxygen Delivery Method Nasal Cannula Oxygen Flow Rate 2 03/01/19 10:31 03/01/19 11:00 03/01/19 11:01 Temperature Temperature Source Sepsis Recent Fever Within 48 Hours Sepsis Action Taken by Nursing Pulse Rate 76 79 79 Pulse Rate [Finger] Pulse Rate from SpO2 Sensor 77 Pulse Rhythm [Finger] Pulse Strength [Finger] Respiratory Rate 22 23 23 Respiratory Effort / Characteristics Respiratory Depth Respiratory Pattern Blood Pressure 158/73 H 177/74 H Blood Pressure [Right Arm] Blood Pressure Mean 101 108 Blood Pressure Mean [Right Arm] Blood Pressure Position Blood Pressure Position [Right Arm] Pulse Oximetry 100 Oxygen Delivery Method Oxygen Flow Rate 03/01/19 11:14 03/01/19 11:18 03/01/19 11:30 Temperature Temperature Source Sepsis Recent Fever Within 48 Hours Sepsis Action Taken by Nursing Pulse Rate Pulse Rate [Finger] 78 Pulse Rate from SpO2 Sensor Pulse Rhythm [Finger] Pulse Strength [Finger] Respiratory Rate 26 H 26 H Respiratory Effort / Characteristics Non-Labored Spontaneous Respiratory Depth Respiratory Pattern Blood Pressure Blood Pressure [Right Arm] 177/74 H Blood Pressure Mean Blood Pressure Mean [Right Arm] 108 Blood Pressure Position Blood Pressure Position [Right Arm] Pulse Oximetry 100 100 Oxygen Delivery Method Nasal Cannula Nasal Cannula Nasal Cannula Oxygen Flow Rate 2 2 2 03/01/19 12:00 03/01/19 15:05 Temperature 36.4 C L 36.6 C Temperature Source Oral Oral Sepsis Recent Fever Within 48 Hours Sepsis Action Taken by Nursing Pulse Rate Pulse Rate [Finger] 85 79 Pulse Rate from SpO2 Sensor Pulse Rhythm [Finger] Regular Pulse Strength [Finger] Normal Respiratory Rate 20 18 Respiratory Effort / Characteristics Non-Labored Spontaneous Respiratory Depth Normal Respiratory Pattern Regular Blood Pressure Blood Pressure [Right Arm] 166/74 H 161/76 H Blood Pressure Mean Blood Pressure Mean [Right Arm] 104 104 Blood Pressure Position Blood Pressure Position [Right Arm] Lying Semi-fowlers Pulse Oximetry 93 92 Oxygen Delivery Method Nasal Cannula Nasal Cannula Oxygen Flow Rate 2 2 GENERAL: Patient is awake, alert, and in no acute distress.Patient is resting comfortably and showing no signs of anxiety EYES: The conjunctivae are clear. The pupils are round and reactive. EARS, NOSE, MOUTH AND THROAT: The nose is without any evidence of any deformity. Mucous membranes are moist.Tongue is midline NECK: The neck is nontender and supple. RESPIRATORY: Normal respiratory effort is noted. Diminished breath sounds throughout with scattered rhonchi. CARDIOVASCULAR: Regular rate and rhythm noted. There no murmurs rubs or gallops normal S1 normal S2 GASTROINTESTINAL: The abdomen is soft. Bowel sounds are present in all quadrants. Abdomen is nontender. BACK: No midline tenderness or or step-off noted range of motion in flexion extension as well as rotation no signs of muscle spasm noted. MUSCULOSKELETAL/EXTREMITIES: There is no evidence of gross deformity. No deformity or shortening noted of the right leg but there was pain with range of motion testing in the right hip. SKIN: There is no obvious evidence of any rash. There are no petechiae, pallor or cyanosis noted. NEUROLOGIC: Patient is awake alert and oriented x3. Strength is symmetric. Patellar reflexes are 2+ bilaterally. Course 0950:The patient was evaluated in room A11. A complete history and physical examination was performed. 1037: I discussed the patient's case with Jose G Crowe [facility] Hospitalist, who will evaluate the patient for further management and care. 1045: Upon reevaluation, the patient is resting comfortably. I discussed laboratory and radiographic results with the patient. She verbalized agreement of the treatment plan. The patient will be evaluated for further management and care. Administered Medications Heparin Sodium (Porcine) (Heparin Sodium (Porcine)) 5,000 units SQ Q8 [facility] Stop: 03/31/19 13:59 Last Admin: 03/01/19 14:14 Dose: 5,000 units Documented by: [id number] Cosigned by: [id number] Lactated Ringer's (Lr) 1,000 mls @ 80 mls/hr IV .[id number] [facility] Stop: 03/31/19 12:16 Last Admin: 03/01/19 13:35 Dose: 80 mls/hr Documented by: [id number] Morphine Sulfate (Morphine Sulfate) 2 mg IV Q2H PRN PRN Reason: MODERATE Pain (Scale 4,5,6) Stop: 03/15/19 12:16 Last Admin: 03/01/19 13:35 Dose: 2 mg Documented by: [id number] Medical Decision Making Differential Diagnosis Differential diagnosis: Etiologies such as fracture, dislocation, neurovascular compromise, compartment syndrome, soft tissue injury, as well as others were entertained. Medical Records Attestation: I reviewed the patient's medical records. Home Medications Current Medication List: was personally reviewed by me Laboratory Data Attestation: I reviewed the patient's lab results. Result diagrams: 03/01/19 10:59 03/01/19 10:59 Lab Results 03/01/19 03/01/19 03/01/19 Range/Units 10:48 10:56 10:59 WBC 7.63 (4.8-10.8) K/uL RBC 5.24 (4.2-5.4) M/uL Hgb 14.2 (12.0-16.0) g/dL Hct 43.5 (37-47) % MCV 83.0 (80-100) fL MCH 27.1 (25-34) pg MCHC 32.6 (32-36) g/dL RDW Std Deviation 46.6 H (36.4-46.3) fL RDW Coeff of Chadd 15.4 H (11.5-14.5) % Plt Count 302 (130-400) K/uL MPV 9.5 (7.4-10.4) fL Immature Gran % (Auto) 0.1 % Neut % (Auto) 81.2 % Lymph % (Auto) 11.1 % [place] % (Auto) 6.8 % Eos % (Auto) 0.5 % Baso % (Auto) 0.3 % Immature Gran # (Auto) 0.01 (0.00-0.02) K/uL Neut # (Auto) 6.19 (1.4-6.5) K/uL Lymph # (Auto) 0.85 L (1.2-3.4) K/uL [place] # (Auto) 0.52 (0.11-0.59) K/uL Eos # (Auto) 0.04 (0-0.5) K/uL Baso # (Auto) 0.02 (0-0.2) K/uL PT (9.0-12.0) Seconds INR (0.9-1.1) APTT (21.0-31.0) Seconds PTT Ratio Sodium (136-145) mmol/L Potassium (3.5-5.1) mmol/L Chloride (98-107) mmol/L Carbon Dioxide (21-32) mmol/L Anion Gap (3-11) BUN (7-18) mg/dl Creatinine (0.6-1.2) mg/dl Est Cr Clr Drug Dosing ml/min Est GFR ( Amer) Est GFR (Non-Af Amer) BUN/Creatinine Ratio (10-20) Glucose (70-99) mg/dl Calcium (8.5-10.1) mg/dl Troponin I (0-0.045) ng/ml Urine Color Yellow Urine Appearance Clear (Clear) Urine pH 7.5 (4.5-7.5) Ur Specific [place] 1.018 (1.000-1.030) Urine Protein Negative (Negative) Urine Glucose (UA) Negative (Negative) Urine Ketones 1+ H (Negative) Urine Blood Negative (Negative) Urine Nitrite Negative (Negative) Urine Bilirubin Negative (Negative) Urine Urobilinogen Negative (Negative) Ur Leukocyte Esterase Negative (Negative) Blood Type O Positive Antibody Screen NEGATIVE 03/01/19 03/01/19 Range/Units 10:59 10:59 WBC (4.8-10.8) K/uL RBC (4.2-5.4) M/uL Hgb (12.0-16.0) g/dL Hct (37-47) % MCV (80-100) fL MCH (25-34) pg MCHC (32-36) g/dL RDW Std Deviation (36.4-46.3) fL RDW Coeff of Chadd (11.5-14.5) % Plt Count (130-400) K/uL MPV (7.4-10.4) fL Immature Gran % (Auto) % Neut % (Auto) % Lymph % (Auto) % [place] % (Auto) % Eos % (Auto) % Baso % (Auto) % Immature Gran # (Auto) (0.00-0.02) K/uL Neut # (Auto) (1.4-6.5) K/uL Lymph # (Auto) (1.2-3.4) K/uL [place] # (Auto) (0.11-0.59) K/uL Eos # (Auto) (0-0.5) K/uL Baso # (Auto) (0-0.2) K/uL PT 11.4 (9.0-12.0) Seconds INR 1.1 (0.9-1.1) APTT 28.0 (21.0-31.0) Seconds PTT Ratio 1.0 Sodium 136 (136-145) mmol/L Potassium 3.7 (3.5-5.1) mmol/L Chloride 100 (98-107) mmol/L Carbon Dioxide 33 H (21-32) mmol/L Anion Gap 3.0 (3-11) BUN 16 (7-18) mg/dl Creatinine 0.73 (0.6-1.2) mg/dl Est Cr Clr Drug Dosing 35.0 ml/min Est GFR ( Amer) 87.0 Est GFR (Non-Af Amer) 75.1 BUN/Creatinine Ratio 21.7 H (10-20) Glucose 86 (70-99) mg/dl Calcium 9.2 (8.5-10.1) mg/dl Troponin I < 0.015 (0-0.045) ng/ml Urine Color Urine Appearance (Clear) Urine pH (4.5-7.5) Ur Specific [place] (1.000-1.030) Urine Protein (Negative) Urine Glucose (UA) (Negative) Urine Ketones (Negative) Urine Blood (Negative) Urine Nitrite (Negative) Urine Bilirubin (Negative) Urine Urobilinogen (Negative) Ur Leukocyte Esterase (Negative) Blood Type Antibody Screen Imaging Data Radiologist's Impression: Radiology results as stated below per my review and the radiologist's interpretation: R chest 1V portable HISTORY: fall COMPARISON: Chest 02/24/2019. FINDINGS: No pneumothorax. No pleural effusions. The heart remains mildly enlarged. Mild left mediastinal shift, unchanged. Left greater than right chronic reticulonodular interstitial thickening persists. Left apical pleural thickening and a left apical cavitation remains unchanged. Emphysema. IMPRESSION: No change compared the prior study. Chronic changes as described above. Electronically signed by: Robby Ferrell M.D. 03/01/2019 10:23 AM XR hip RT 2-3V w pelvis CLINICAL HISTORY: fall. Right hip pain. COMPARISON STUDY: Pelvis 02/25/2018. FINDINGS: Slightly impacted subcapital right femoral neck fracture. No dislocation. The bones are osteopenic. The pelvic bones are intact. No fracture or dislocation within the left hip. IMPRESSION: Slightly impacted subcapital right femoral neck fracture. Electronically signed by: Robby Ferrell M.D. 03/01/2019 10:22 AM ECG Data Attestation: I personally reviewed and interpreted this ECG as follows: Indication: weakness Rate (beats per minute): 77 Rhythm: normal sinus Findings: no PAC, no PVC, no ST depression, no ST elevation, no acute ischemic change and no ectopy Blood Pressure Blood Pressure Findings: Elevated blood pressure Blood Pressure Disposition: Referred to patients primary care provider MDM Narrative The patient is an 84-year-old female who presented to the emergency department after a ground-level fall. The patient fell while standing onto her right side. She had significant pain in her right hip. She presented to the emergency department via ambulance. X-rays did reveal a subcapital right hip fracture. I discussed the patient's laboratory and radiographic studies with her. At this time no family members have presented to the emergency department to be with her. The patient normally resides in a personal skilled nursing. I discussed this case with the on-call [facility] hospitalist. They have agreed to evaluate the patient in the emergency department for further management and disposition. Impression & Plan Fall, Subcapital fracture of right hip Discharge Plan Visit Data *Final* Discharge Date/Time: 03/01/19 11:30 Chief Complaint: Hip Pain Stated Complaint: fall/ R hip pain ED Provider: Maxwell Galarza Discharge Problem: Fall, Subcapital fracture of right hip Patient Disposition: Admitted As Inpatient Discharge Instructions Interventions: ED Discharge Assessment Last Done: 03/01/19 11:30 Discharge Problem: Fall Qualifiers: Encounter type: initial encounter Qualified Code(s): W19.XXXA - Unspecified fall, initial encounter Subcapital fracture of right hip Qualifiers: Encounter type: initial encounter Fracture type: closed Qualified Code(s): S72.011A - Unspecified intracapsular fracture of right femur, initial encounter for closed fracture The scribe's documentation has been prepared under my direction and personally reviewed by me in its entirety. I confirm that the note above accurately reflects all work, treatment, procedures, and medical decision making performed by me.
--- NOTE | 2019-03-01 11:03 | History & Physical Report ---
Date of Service March 01, 2019 Assessment & Plan (1) Closed right hip fracture: hip fracture order set, admit to medical floor consult Dr. 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, takes Ethambutol and Azithromycin infection is under good control, no current issues (3) Anxiety: use Klonipin PRN patient is calm at time of admission (4) Dementia: continue on Aricept she is oriented x 3, pleasant, good historian dementia must be mild (5) Hypothyroidism: continue Synthroid (6) H/O: lung cancer: treated with resection, was in left upper lobe in full remission (7) Fall: caused the fracture good historian, sounds like mechanical fall no loss of consciousness, no reason to suspect syncope History of Present Illness Chief Complaint: I fell while cleaning my room Primary Care Provider: Jimenez Guerrero 84 yo female with history of DONYA infection and COPD and mild dementia, presented to the ED after falling and suffering right hip pain. She says she was cleaning her dresser, planning on changing sides of the room since her roomate had left and she wanted the bed by the window. She was leaning over cleaning the bottom shelf and she lost her balance and fell on her right side. She immediately had pain and could not ambulate. She did not strike her head. She did not lose consciousness. EMS brought her to the ED. Her vitals were stable and labs were stable. Imaging showed a right slightly impacted subcapital femoral neck fracture. Pain was controlled. Admission requested. Discussed with patient that surgery would be the only way to fix the fracture so that she might regain her mobility. She says that she ambulates independently with a rolling walker. Has a history of multiple surgeries to her left knee but she still gets around well. She says that she would want to keep her independence so she would want surgery if recommended. Her DONYA infection is chronic, well controlled on Ethambutol and Azithromcyin, alternating days during the week. Allergies Allergy/AdvReac Type Severity Reaction Status Date / Time morphine AdvReac Intermediate VOMITING Verified 03/01/19 10:30 codeine AdvReac Mild HALLUCINATI Verified 03/01/19 10:30 ONS Home Medications Home Medications Medication Instructions Recorded Confirmed Type acetaminophen [Tylenol Extra 500 mg PO UD PRN 11/15/18 03/01/19 History Strength] albuterol sulfate [Ventolin HFA] 2 puff INHALATION Q6 PRN 11/15/18 03/01/19 H istory aspirin 325 mg PO DAILY 11/15/18 03/01/19 History azithromycin [Zithromax] 500 mg PO 4XWK 11/15/18 03/01/19 History cholecalciferol (vitamin D3) 2,000 unit PO DAILY 11/15/18 03/01/19 History [Vitamin D3] clonazepam [Klonopin] 0.25 mg PO BID 11/15/18 03/01/19 History docusate sodium [Colace] 100 mg PO UD PRN 11/15/18 03/01/19 History ethambutol [Myambutol] 800 mg PO 3XWK 11/15/18 03/01/19 History levothyroxine [Synthroid] 75 mcg PO QAM 11/15/18 03/01/19 History ondansetron 4 mg TRANSLINGUAL QID PRN 11/15/18 03/01/19 History ranitidine HCl 75 mg PO BID 11/15/18 03/01/19 History donepezil 10 mg PO DAILY 03/01/19 03/01/19 History Past Med/Surg History Medical History H/O: lung cancer Hypothyroidism Abnormal CT of the chest (Resolved) Acute bronchitis (Resolved) Chest wall contusion (Resolved) Fall (Resolved) Nausea and vomiting (Resolved) PNA (pneumonia) (Resolved) Right rib fracture (Resolved) COPD (chronic obstructive pulmonary disease) DONYA (mycobacterium avium-intracellulare) infection Surgical History S/P cataract surgery S/P hysterectomy S/P lobectomy of lung S/P total knee replacement Family History Other Family history non-contributory Social History Preferred Language: Sami Communication Ability: Effective Knowledge Engineer Required: No Beliefs That Will Affect Care: None Current Living Situation: Alone and Personal Care Facility Current Living Situation Comment: lives at [facility] current occupational status: retired Other Information That Helps Us Care for You: No Feels Safe at Home: Yes Safety Concerns: Feels Safe At This Time Smoking Status: Former smoker Do You Dip or Chew Tobacco: No Second Hand Exposure: No Tobacco Cessation Education Requested by Patient: No Hx Alcohol Use: No Hx Substance Use: No Review of Systems Review of Systems: All systems reviewed & are unremarkable except as noted in HPI & below MS: Musculoskeletal: + joint pain (right hip) Physical Exam Vital Signs (Past 24 Hours): Last Vital Signs Temp 36.4 C L 03/01/19 09:59 Pulse 84 03/01/19 09:59 Resp 24 03/01/19 09:59 BP 190/77 H 03/01/19 09:59 Pulse Ox 99 03/01/19 09:59 Constitutional: WD/WN, vitals as above Eyes: PERRL, conjunctivae normal, anicteric sclerae ENMT: external ear and nose normal, oropharynx normal Neck: trachea midline, no thyromegaly Respiratory: normal respiratory effort, lungs clear to auscultation Cardiovascular: RRR, no murmur, no edema Gastrointestinal (Abdomen): normal bowel sounds, soft, nontender, no hepatosplenomegaly Musculoskeletal: Head/Neck/Chest: normocephalic and head atraumatic Extremities: extremities normal to inspection, + limited ROM of extremities (right hip, cannot move due to pain) and strength 5/5 throughout; no muscle atrophy, no cyanosis and no clubbing Skin: no rashes, warm and dry Neurologic: patellar DTR's 2+ bilat, sensation intact and PERRL, EOMI, accommodation nl, no face palsy, no dysarthria Psychiatric: A+Ox3, euthymic affect Lymphatic: no cervical or axillary lymphadenopathy Results & Data Laboratory Results Laboratory Results - last 24 hr 03/01/19 03/01/19 03/01/19 10:48 10:56 10:59 WBC 7.63 RBC 5.24 Hgb 14.2 Hct 43.5 MCV 83.0 MCH 27.1 MCHC 32.6 RDW Std Deviation 46.6 H RDW Coeff of Chadd 15.4 H Plt Count 302 MPV 9.5 Immature Gran % (Auto) 0.1 Neut % (Auto) 81.2 Lymph % (Auto) 11.1 [place] % (Auto) 6.8 Eos % (Auto) 0.5 Baso % (Auto) 0.3 Immature Gran # (Auto) 0.01 Neut # (Auto) 6.19 Lymph # (Auto) 0.85 L [place] # (Auto) 0.52 Eos # (Auto) 0.04 Baso # (Auto) 0.02 PT INR APTT PTT Ratio Sodium Potassium Chloride Carbon Dioxide Anion Gap BUN Creatinine Est Cr Clr Drug Dosing Est GFR ( Amer) Est GFR (Non-Af Amer) BUN/Creatinine Ratio Glucose Calcium Troponin I Urine Color Yellow Urine Appearance Clear Urine pH 7.5 Ur Specific [place] 1.018 Urine Protein Negative Urine Glucose (UA) Negative Urine Ketones 1+ H Urine Blood Negative Urine Nitrite Negative Urine Bilirubin Negative Urine Urobilinogen Negative Ur Leukocyte Esterase Negative Blood Type O Positive Antibody Screen NEGATIVE 03/01/19 03/01/19 10:59 10:59 WBC RBC Hgb Hct MCV MCH MCHC RDW Std Deviation RDW Coeff of Chadd Plt Count MPV Immature Gran % (Auto) Neut % (Auto) Lymph % (Auto) [place] % (Auto) Eos % (Auto) Baso % (Auto) Immature Gran # (Auto) Neut # (Auto) Lymph # (Auto) [place] # (Auto) Eos # (Auto) Baso # (Auto) PT 11.4 INR 1.1 APTT 28.0 PTT Ratio 1.0 Sodium 136 Potassium 3.7 Chloride 100 Carbon Dioxide 33 H Anion Gap 3.0 BUN 16 Creatinine 0.73 Est Cr Clr Drug Dosing 35.0 Est GFR ( Amer) 87.0 Est GFR (Non-Af Amer) 75.1 BUN/Creatinine Ratio 21.7 H Glucose 86 Calcium 9.2 Troponin I < 0.015 Urine Color Urine Appearance Urine pH Ur Specific [place] Urine Protein Urine Glucose (UA) Urine Ketones Urine Blood Urine Nitrite Urine Bilirubin Urine Urobilinogen Ur Leukocyte Esterase Blood Type Antibody Screen Diagnostic Findings XR hip RT 2-3V w pelvis CLINICAL HISTORY: fall. Right hip pain. COMPARISON STUDY: Pelvis 02/25/2018. FINDINGS: Slightly impacted subcapital right femoral neck fracture. No dislocation. The bones are osteopenic. The pelvic bones are intact. No fracture or dislocation within the left hip. IMPRESSION: Slightly impacted subcapital right femoral neck fracture. SINGLE VIEW CHEST CLINICAL HISTORY: Preoperative examination. FINDINGS: An AP, portable, upright chest radiograph is compared to study dated 03/01/2019 and correlated with chest CT dated 04/22/2018. The examination is degraded by portable technique and patient rotation. The cardiomediastinal silhouette is unremarkable, noting atherosclerotic calcification of the thoracic aorta. Emphysematous change is again noted. There is volume loss in the left lung, likely related to previous surgical resection. Left apical cavitation is again noted. There may be trace fluid within the cavity. No pneumothorax is seen. Extensive interstitial thickening and nodularity is similar to previous. There is no evidence of superimposed airspace consolidation or large pleural effusion. Apical scarring is observed. The skeletal structures are osteopenic. The bony thorax is grossly intact. IMPRESSION: 1. No acute cardiopulmonary abnormality is identified. 2. Chronic changes as above, similar appearance to the 03/01/2019 examination. Code Status & VTE Plan Code Status full code VTE Prophylaxis Plan VTE Prophylaxis will be ordered: Yes
[2019-03-01 11:14] LABS: Basophils # (auto) 0.02 K/uL (0-0.2); Basophils % (auto) 0.3 %; Eosinophils # (auto) 0.04 K/uL (0-0.5); Eosinophils % (auto) 0.5 %; Hematocrit (blood only) 43.5 % (37-47); Hemoglobin 14.2 g/dL (12.0-16.0); Immature Granulocytes # (auto) 0.01 K/uL (0.00-0.02); Immature Granulocytes % (auto) 0.1 %; Lymphocytes # (auto) 0.85 K/uL (1.2-3.4); Lymphocytes % (auto) 11.1 %; Mean Corpuscular Hgb Conc 32.6 g/dL (32-36); Mean Platelet Volume 9.5 fL (7.4-10.4); Monocytes # (auto) 0.52 K/uL (0.11-0.59); Monocytes % (auto) 6.8 %; Neutrophils # (auto) 6.19 K/uL (1.4-6.5); Neutrophils % (auto) 81.2 %; Platelet Count 302 K/uL (130-400); RDW Coefficient of Variation 15.4 % (11.5-14.5); RDW Standard Deviation 46.6 fL (36.4-46.3); Red Blood Count 5.24 M/uL (4.2-5.4); White Blood Count 7.63 K/uL (4.8-10.8)
[2019-03-01 11:17] LABS: Appearance Urine Clear (Clear); Bilirubin Urine Negative (Negative); Blood Urine Negative (Negative); Color Urine Yellow; Glucose Urine UA Negative (Negative); Ketones Urine 1+ (Negative); Leukocyte Esterase Urine Negative (Negative); Nitrite Urine Negative (Negative); Protein Urine Negative (Negative); Specific Gravity Urine 1.018 (1.000-1.030); Urobilinogen Urine Negative (Negative); pH Urine 7.5 (4.5-7.5)
[2019-03-01 11:30] LABS: BUN Creatinine Ratio 21.7 (10-20); Blood Urea Nitrogen 16 mg/dl (7-18); Calcium 9.2 mg/dl (8.5-10.1); Carbon Dioxide 33 mmol/L (21-32); Chloride 100 mmol/L (98-107); Est GFR (Non-African American) 75.1; Glucose 86 mg/dl (70-99); INR 1.1 (0.9-1.1); Potassium 3.7 mmol/L (3.5-5.1); Prothrombin Time 11.4 Seconds (9.0-12.0); Sodium 136 mmol/L (136-145)
[2019-03-01 11:34] LABS: Troponin I < 0.015 ng/ml (0-0.045)
[2019-03-01] MEDS ORDERED: NALOXONE HCL 0.4 MG/1 ML VIAL/CARP IV PRN (12:17)
[2019-03-01] MEDS ORDERED: BISACODYL 10 MG SUPP PR PRN (12:17)
[2019-03-01] MEDS ORDERED: MAGNESIUM HYDROXIDE SUSP 30 ML UDC PO PRN (12:17)
[2019-03-01] MEDS ORDERED: ALBUTEROL HFA 8 GM INHALER INH PRN (12:17)
--- NOTE | 2019-03-01 13:20 | XRay Report ---
SINGLE VIEW CHEST CLINICAL HISTORY: Preoperative examination. FINDINGS: An AP, portable, upright chest radiograph is compared to study dated 03/01/2019 and correlat ed with chest CT dated 04/22/2018. The examination is degraded by portable technique and patient rotati on. The cardiomediastinal silhouette is unremarkable, noting atherosclerotic calcification of the th oracic aorta. Emphysematous change is again noted. There is volume loss in the left lung, likely rela palmira to previous surgical resection. Left apical cavitation is again noted. There may be trace fluid w ithin the cavity. No pneumothorax is seen. Extensive interstitial thickening and nodularity is simila r to previous. There is no evidence of superimposed airspace consolidation or large pleural effusion. Apical scarring is observed. The skeletal structures are osteopenic. The bony thorax is grossly inta ct. IMPRESSION: 1. No acute cardiopulmonary abnormality is identified. 2. Chronic changes as above, similar appearance to the 03/01/2019 examination. Electronically signed by: Nemesio Finn M.D. 03/01/2019 1:18 PM
[2019-03-01] MEDS: LACTATED RINGER'S 1,000 ML IV SCH (13:35)
[2019-03-01] MEDS: MoRPHine SULFATE 2 MG/ML CARP IV PRN ×2 (13:35→21:29)
--- NOTE | 2019-03-01 13:40 | Anesthesiology Consultation ---
Date of Service March 01, 2019 Assessment & Plan (1) Encounter for pre-operative examination: Chart Review Chart Review: Acceptable Risk for Surgery Consults Requested none History Height/Weight Height: 5 ft 2 in Weight: 39.3 kg Allergies Allergy/AdvReac Type Severity Reaction Status Date / Time morphine AdvReac Intermediate VOMITING Verified 03/01/19 10:30 codeine AdvReac Mild HALLUCINATI Verified 03/01/19 10:30 ONS Medications Home Medications Medication Instructions Recorded Confirmed Last Taken acetaminophen [Tylenol Extra 500 mg PO UD PRN 11/15/18 03/01/19 Unknown Strength] albuterol sulfate [Ventolin HFA] 2 puff INHALATION Q6 PRN 11/15/18 03/01/19 Unknown aspirin 325 mg PO DAILY 11/15/18 03/01/19 02/23/19 azithromycin [Zithromax] 500 mg PO 4XWK 11/15/18 03/01/19 11/14/18 cholecalciferol (vitamin D3) 2,000 unit PO DAILY 11/15/18 03/01/19 02/23/19 [Vitamin D3] clonazepam [Klonopin] 0.25 mg PO BID 11/15/18 03/01/19 02/24/19 docusate sodium [Colace] 100 mg PO UD PRN 11/15/18 03/01/19 Unknown ethambutol [Myambutol] 800 mg PO 3XWK 11/15/18 03/01/19 02/23/19 levothyroxine [Synthroid] 75 mcg PO QAM 11/15/18 03/01/19 02/24/19 ondansetron 4 mg TRANSLINGUAL QID PRN 11/15/18 03/01/19 Unknown ranitidine HCl 75 mg PO BID 11/15/18 03/01/19 02/24/19 donepezil 10 mg PO DAILY 03/01/19 03/01/19 Unknown Active Medications Generic Name Dose Route Start Last Admin Trade Name Freq PRN Reason Stop Dose Admin Lactated Ringer's 1,000 mls @ 80 mls/hr 03/01/19 12:17 03/01/19 13:35 Lr IV 03/31/19 12:16 80 mls/hr .[id number] JAM Administration Morphine Sulfate 2 mg 03/01/19 12:17 03/01/19 13:35 Morphine Sulfate IV 03/15/19 12:16 2 mg Q2H PRN Administration MODERATE Pain (Scale 4,5,6) Past Medical History Medical History H/O: lung cancer Hypothyroidism Abnormal CT of the chest (Resolved) Acute bronchitis (Resolved) Chest wall contusion (Resolved) Fall (Resolved) Nausea and vomiting (Resolved) PNA (pneumonia) (Resolved) Right rib fracture (Resolved) COPD (chronic obstructive pulmonary disease) Past Family History Family History Other Family history non-contributory Past Surgical History Surgical History S/P cataract surgery S/P hysterectomy S/P lobectomy of lung S/P total knee replacement Social History Smoking Status: Former smoker Do You Dip or Chew Tobacco: No Hx Alcohol Use: No Hx Substance Use: No Exercise / Class Metabolic Activity III < 4 Walking/Shop/Light housework Physical Exam Vital Signs Last Vital Signs Temp 97.5 F L 03/01/19 12:00 Pulse 85 03/01/19 12:00 Resp 20 03/01/19 12:00 BP 166/74 H 03/01/19 12:00 Pulse Ox 93 03/01/19 12:00 ENMT Mouth: + chipped teeth (L bottom canine) Thyromental Distance: > or= 3.5 Finger Breadths Mallampati Class: II Respiratory normal respiratory effort Auscultation: + diminished lung sounds Cardiovascular Rate/Rhythm: regular rate and regular rhythm Testing Electrocardiogram Date: 03/01/19 Findings: + NSR @ (77 bpm) Chest X-Ray Date: 03/01/19 FINDINGS: An AP, portable, upright chest radiograph is compared to study dated 03/01/2019 and correlated with chest CT dated 04/22/2018. The examination is degraded by portable technique and patient rotation. The cardiomediastinal silhouette is unremarkable, noting atherosclerotic calcification of the thoracic aorta. Emphysematous change is again noted. There is volume loss in the left lung, likely related to previous surgical resection. Left apical cavitation is again noted. There may be trace fluid within the cavity. No pneumothorax is seen. Extensive interstitial thickening and nodularity is similar to previous. There is no evidence of superimposed airspace consolidation or large pleural effusion. Apical scarring is observed. The skeletal structures are osteopenic. The bony thorax is grossly intact. Laboratory Results 03/01/19 10:59 03/01/19 10:59 Blood Type O Positive 03/01/19 10:56 Antibody Screen NEGATIVE 03/01/19 10:56 PT 11.4 Seconds (9.0-12.0) 03/01/19 10:59 INR 1.1 (0.9-1.1) 03/01/19 10:59 APTT 28.0 Seconds (21.0-31.0) 03/01/19 10:59 Urine Color Yellow 03/01/19 10:48 Urine Appearance Clear (Clear) 03/01/19 10:48 Urine pH 7.5 (4.5-7.5) 03/01/19 10:48 Ur Specific [place] 1.018 (1.000-1.030) 03/01/19 10:48 Urine Protein Negative (Negative) 03/01/19 10:48 Urine Glucose (UA) Negative (Negative) 03/01/19 10:48 Urine Ketones 1+ (Negative) H 03/01/19 10:48 Urine Nitrite Negative (Negative) 03/01/19 10:48 Ur Leukocyte Esterase Negative (Negative) 03/01/19 10:48
[2019-03-01] MEDS: HEPARIN SOD 5,000 UNIT/0.5 ML VIAL SQ SCH ×2 (14:14→22:00)
--- NOTE | 2019-03-01 16:25 | Consultation Report ---
DATE OF CONSULTATION: 03/01/2019 CHIEF COMPLAINT: Right hip pain. HISTORY OF PRESENT ILLNESS: Zahira is alert, oriented, 84 years of age. She had a fall at home earlier today, suffered an acute injury to her right hip. She fell off a stool to the best of her recollection. She suffered a minimally displaced subcapital fracture of the right hip, slight impaction. PAST MEDICAL HISTORY: Positive for anxiety, dementia, hypothyroidism, history of lung CA. ALLERGIES: MORPHINE, CODEINE. HOME MEDICATIONS: Listed reviewed. PAST SURGICAL HISTORY: Negative. FAMILY HISTORY: Noncontributory. REVIEW OF SYSTEMS: Denies any blurred vision, double vision or head trauma. Denies any fevers, sweats, chills. Denies chest pain, shortness of breath. No nausea, vomiting, urgency, frequency. All negative. Major complaint is her right lower extremity difficulty. OBJECTIVE: VITAL SIGNS: Stable, 36.4 temperature, pulse 80. Blood pressure slightly elevated. HEENT: Pupils react to light and accommodation. SKIN: Skin turgor essentially normal. CARDIAC: Regular rate and rhythm, 80 beats per minute. LUNGS: Clear. EXTREMITIES: Intact. There is no shortening or slight pain with external rotation of the right hip. Leg lengths are appropriate with no foreshortening. IMAGES: Reviewed. She has a slightly impacted subcapital right femoral neck fracture. There is no dislocation or subluxation. There is some osteopenia. Acetabulum intact. ASSESSMENT: Subcapital fracture, right femoral neck. PLAN: Includes surgery which will be tomorrow the . I am seeing her today around 4:00 in the afternoon. We will not be doing her surgery later on this evening, more than likely one of my partners will be able to get to her surgery sometime tomorrow at the latest Tuesday.
[2019-03-01] MEDS: AZITHROMYCIN 250 MG TAB PO SCH (18:45)
[2019-03-01] MEDS: clonazePAM 0.5 MG TAB PO SCH (21:58)
[2019-03-01] MEDS: DOCUSATE SODIUM/SENNA 50/8.6MG TAB PO SCH (21:58)
[2019-03-02] MEDS: LACTATED RINGER'S 1,000 ML IV SCH (01:38)
[2019-03-02] MEDS ORDERED: OXYCODONE/ACETAMINOPHEN 5mg/325mg TAB PO PRN (03:40)
[2019-03-02] MEDS ORDERED: OXYCODONE/ACETAMINOPHEN 10-325 TAB PO STA (03:40)
[2019-03-02] MEDS: LEVOTHYROXINE SODIUM 75 MCG TABLET PO SCH (05:50)
[2019-03-02] MEDS ORDERED: CEFAZOLIN 2000MG 2,000 MG/15 ML SYR IV SCH (06:00)
[2019-03-02 06:48] LABS: Hematocrit (blood only) 38.1 % (37-47); Hemoglobin 12.1 g/dL (12.0-16.0); Mean Corpuscular Hgb Conc 31.8 g/dL (32-36); Mean Corpuscular Volume 84.1 fL (80-100); Mean Platelet Volume 9.5 fL (7.4-10.4); Platelet Count 252 K/uL (130-400); RDW Coefficient of Variation 15.6 % (11.5-14.5); RDW Standard Deviation 48.3 fL (36.4-46.3); Red Blood Count 4.53 M/uL (4.2-5.4); White Blood Count 6.53 K/uL (4.8-10.8)
[2019-03-02 07:14] LABS: BUN Creatinine Ratio 19.4 (10-20); Calcium 8.7 mg/dl (8.5-10.1); Creatinine Clr Calc Pharmacy 41.2 ml/min; Est GFR (African American) 95.3; Est GFR (Non-African American) 82.2; Potassium 3.6 mmol/L (3.5-5.1)
[2019-03-02] MEDS: ETHAMBUTOL HCL 400 MG TAB PO SCH (08:25)
--- NOTE | 2019-03-02 09:07 | Orthopedic Progress Note ---
Date of Service March 02, 2019 Assessment & Plan (1) Subcapital fracture of right hip: NPO. Plan for cannulated screw fixation today. Consent obtained for screw fixation vs hemiarthroplasty. Subjective Zahira is c/o right hip pain. Some back pain from not moving much. No other complaints. Physical Exam Physical Exam: Alert, NAD Seems mildly confused. Did not remember which hospital she's in but does remember how she hurt her hip. Right leg: I did not do any motion of hip. NVI Results & Data Vital Signs (Past 12 Hours) Vital Signs Temp Pulse Resp BP Pulse Ox 03/02/19 06:57 36.6 C 82 18 143/75 H 98 03/01/19 23:10 37.0 C 89 14 152/79 H 96 (1) Subcapital fracture of right hip Encounter type: initial encounter Fracture type: closed Qualified Code(s): S72.011A - Unspecified intracapsular fracture of right femur, initial encounter for closed fracture
--- NOTE | 2019-03-02 11:39 | Hospitalist Progress Note ---
Date of Service March 02, 2019 Assessment & Plan (1) Closed right hip fracture: hip fracture order set, admit to medical floor consult Dr. 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, takes Ethambutol and Azithromycin infection is under good control, no current issues on oxygen chronically, no current distress (3) Anxiety: use Klonipin PRN patient is calm today (4) Dementia: continue on Aricept she is oriented x 3, pleasant, good historian dementia must be mild (5) Hypothyroidism: continue Synthroid (6) H/O: lung cancer: treated with resection, was in left upper lobe in full remission (7) Fall: caused the fracture good historian, sounds like mechanical fall no loss of consciousness, no reason to suspect syncope plan for PT/OT after surgery, can start tomorrow Subjective patient resting in bed c/o some mild to moderate right hip pain says she feels ready for surgery, just wants to get better she is hungry, denies chest pain or dyspnea no abdominal pain, N/V/D reviewed labs, CBC and BMP stable Review of Systems Review of Systems: All systems reviewed & are unremarkable except as noted in HPI & below Musculoskeletal: + joint pain (right hip) Physical Exam Constitutional: WD/WN, vitals as above Eyes: PERRL, conjunctivae normal, anicteric sclerae ENMT: external ear and nose normal, oropharynx normal Neck: trachea midline, no thyromegaly Respiratory: normal respiratory effort, lungs clear to auscultation Cardiovascular: RRR, no murmur, no edema Gastrointestinal (Abdomen): normal bowel sounds, soft, nontender, no hepatosplenomegaly Musculoskeletal: Head/Neck/Chest: normocephalic and head atraumatic Extremities: extremities normal to inspection, + limited ROM of extremities (right hip, cannot move due to pain) and strength 5/5 throughout; no muscle atrophy, no cyanosis and no clubbing Skin: no rashes, warm and dry Neurologic: patellar DTR's 2+ bilat, sensation intact and PERRL, EOMI, a ccommodation nl, no face palsy, no dysarthria Psychiatric: A+Ox3, euthymic affect Lymphatic: no cervical or axillary lymphadenopathy Results & Data Vital Signs (Past 12 Hours) Vital Signs Temp Pulse Resp BP Pulse Ox 03/02/19 06:57 36.6 C 82 18 143/75 H 98 Laboratory Results Laboratory Results - last 24 hr 03/01/19 03/02/19 03/02/19 10:56 06:22 06:22 WBC 6.53 RBC 4.53 Hgb 12.1 Hct 38.1 MCV 84.1 MCH 26.7 MCHC 31.8 L RDW Std Deviation 48.3 H RDW Coeff of Chadd 15.6 H Plt Count 252 MPV 9.5 Sodium 135 L Potassium 3.6 Chloride 101 Carbon Dioxide 30 Anion Gap 4.0 BUN 12 Creatinine 0.62 Est Cr Clr Drug Dosing 41.2 Est GFR ( Amer) 95.3 Est GFR (Non-Af Amer) 82.2 BUN/Creatinine Ratio 19.4 Glucose 73 Calcium 8.7 Blood Type O Positive Antibody Screen NEGATIVE Medications Administered Current Inpatient Medications Albuterol (Ventolin Hfa) 2 puffs INH Q6 PRN PRN Reason: Shortness Of Breath Or Wheezin Stop: 03/31/19 12:16 Azithromycin (Zithromax) 500 mg PO [id number]@0900 [facility] Stop: 03/08/19 17:59 Last Admin: 03/01/19 18:45 Dose: 500 mg Documented by: Bisacodyl (Dulcolax) 10 mg DC DAILY PRN PRN Reason: Constipation Stop: 03/31/19 12:16 Clonazepam (Klonopin) 0.25 mg PO BID [facility] [place] Stop: 03/31/19 20:59 Last Admin: 03/01/19 21:58 Dose: 0.25 mg Documented by: Donepezil HCl (Aricept) 10 mg PO DAILY [facility] Stop: 04/01/19 08:59 Ethambutol HCl (Myambutol) 800 mg PO MoWeFr@0900 [facility] [place] Stop: 04/01/19 08:59 Last Admin: 03/02/19 08:25 Dose: 800 mg Documented by: Heparin Sodium (Porcine) (Heparin Sodium (Porcine)) 5,000 units SQ Q8 [facility] Stop: 03/31/19 13:59 Last Admin: 03/01/19 22:00 Dose: 5,000 units Documented by: Cefazolin Sodium (Ancef 2000mg) 2,000 mg in 15 mls @ 3.75 mls/min IV PREOP [facility] [place]; Protocol Stop: 03/03/19 05:59 Lactated Ringer's (Lr) 1,000 mls @ 80 mls/hr IV .[id number] [facility] [place] Stop: 03/31/19 12:16 Last Admin: 03/02/19 01:38 Dose: 80 mls/hr Documented by: Levothyroxine Sodium (Synthroid) 75 mcg PO DAILYBB [facility] [place] Stop: 04/01/19 06:29 Last Admin: 03/02/19 05:50 Dose: 75 mcg Documented by: Magnesium Hydroxide (Milk Of Magnesia) 30 ml PO DAILY PRN PRN Reason: Constipation Stop: 03/31/19 12:16 Morphine Sulfate (Morphine Sulfate) 2 mg IV Q2H PRN PRN Reason: MODERATE Pain (Scale 4,5,6) Stop: 03/15/19 12:16 Last Admin: 03/01/19 21:29 Dose: 2 mg Documented by: Naloxone HCl (Narcan) 0.1 mg IV UD PRN PRN Reason: Opiate Overdose Stop: 03/31/19 12:16 Ondansetron HCl (Zofran) 4 mg IV Q6H PRN PRN Reason: Nausea Stop: 03/31/19 21:40 Oxycodone/Acetaminophen (Percocet 5mg/325mg) 1 tab PO Q4H PRN PRN Reason: Pain Stop: 03/16/19 03:39 Last Admin: 03/02/19 06:24 Dose: 1 tab Documented by: Ranitidine HCl (Zantac) 75 mg PO BID [facility] [place] Stop: 03/31/19 20:59 Last Admin: 03/02/19 08:25 Dose: 75 mg Documented by: Senna/Docusate Sodium (Senokot S) 2 tab PO HS [facility] [place] Stop: 03/31/19 20:59 Last Admin: 03/01/19 21:58 Dose: 2 tab Documented by:
[2019-03-02] MEDS ORDERED: THROMBIN FOR SOLN 20000 UNIT KIT ONE (13:28)
[2019-03-02] MEDS ORDERED: BUPIVACAINE/EPINEPHRINE 0.5% MPF 1:200,000 30 ML VIAL ONE (13:28)
[2019-03-02] MEDS ORDERED: BACITRACIN INJ 50,000 UNIT VIAL ONE (13:28)
--- NOTE | 2019-03-02 14:32 | History & Physical Bridge Note ---
Date of Service March 02, 2019 History & Physical Bridge Note I have examined the patient, reviewed the History & Physical and in the interval since the performance of the History & Physical I have noted the following changes of clinical significance: no changes noted
[2019-03-02] MEDS ORDERED: DEXAMETHASONE SOD INJ 4 MG/ML VIAL ONE (14:39)
[2019-03-02] MEDS ORDERED: PROPOFOL IV EMULSION 10 MG/ML 20 ML VIAL IV ONE (14:39)
[2019-03-02] MEDS ORDERED: LIDOCAINE HCL 2% 2 ML VIAL/AMP(20MG/ML) INFIL ONE (14:39)
[2019-03-02] MEDS ORDERED: ONDANSETRON INJ 2 MG/ML 2 ML VIAL ONE (14:39)
[2019-03-02] MEDS ORDERED: fentaNYL citrate 100 MCG/2 ML VIAL ONE (14:39)
[2019-03-02] MEDS ORDERED: MIDAZOLAM HCL 1 MG/ML 2ML VIAL ONE (14:40)
[2019-03-02] MEDS ORDERED: BUPIVACAINE 0.5 % 5 MG/1 ML PF 10ML VIAL ONE (15:15)
[2019-03-02] MEDS ORDERED: PHENYLEPHRINE 100MCG/ML 5ML SYR ONE (15:24)
--- NOTE | 2019-03-02 16:43 | Post Operative Brief Note ---
Immediate Post Op Note v1 Date of Surgery March 02, 2019 Pre & Post Diagnosis Operation Date: 03/02/19 11:10 Pre-Op Diagnosis: Displaced Subcapital fracture of right hip Post-Op Diagnosis: Displaced Subcapital fracture of right hip Procedure Operation Date: 03/02/19 11:10 Actual Procedures p Right Hip Hemiarthroplasty(Right) - Obinna Carranza MD Surgeon Obinna Carranza MD [employer], PAC Estimated Blood Loss 100 Findings Consistent with Post-Op Diagnosis Fluids 1000 Specimens Right Femoral Head Drains Cisneros Catheter (in place prior to admission to OR rooom. Clear, yellow urine noted, anesthesia to monitor output during surgery) Anesthesia Type Spinal MAC Complications none Disposition Accompanied Patient To Recovery: Yes Disposition: Recovery Room
[2019-03-02] MEDS ORDERED: METOPROLOL TARTRATE 1 MG/ML VIAL IV STA (17:05)
[2019-03-02] MEDS ORDERED: METOPROLOL TARTRATE 1 MG/ML VIAL IV ONE (17:05)
--- NOTE | 2019-03-02 17:05 | Anesthesiology Progress Note ---
Date of Service March 02, 2019 Anesthesia Post Procedure Vital Signs Vital Signs: Temp Pulse Resp BP Pulse Ox 03/02/19 13:26 37 C 79 22 138/56 L 93 03/02/19 06:57 36.6 C 82 18 143/75 H 98 03/01/19 23:10 37.0 C 89 14 152/79 H 96 Pain Intensity Right Hip: Pain Intensity: 2 Notes Mental Status: alert / awake / arousable Patient Amnestic to Procedure: Yes Nausea / Vomiting: adequately controlled Pain: adequately controlled Airway Patency, RR, SpO2: stable & adequate BP & HR: stable & adequate Hydration State: stable & adequate Neuraxial Anesthesia: was administered and sensory block is resolving Anesthetic Complications: no major complications apparent and Pt Satisfied with anesthetic care Notes: The patient is awake and comfortable. Her mentation is at baseline.
--- NOTE | 2019-03-02 17:16 | XRay Report ---
XR hip RT min 2V CLINICAL HISTORY: Postop study COMPARISON: 03/01/2019 DISCUSSION: There are postsurgical changes of a bipolar right hip arthroplasty. The femoral component appears well seated. There is no dislocation. Overlying skin britni are evident. There is air withi n soft tissues consistent with recent surgery. IMPRESSION: Postsurgical changes of a bipolar right hip arthroplasty. No dislocation. Electronically signed by: Bret Fontaine M.D. 03/02/2019 5:15 PM
[2019-03-02] MEDS ORDERED: LABETALOL HCL IV 5 MG/ML 20ML IV PRN (17:31)
[2019-03-02] MEDS ORDERED: ATROPINE SULFATE 0.1 MG/ML 10ML SYR IV PRN (17:31)
[2019-03-02] MEDS ORDERED: ePHEDrine sulfate 50 MG/ML AMP IV PRN (17:31)
[2019-03-02] MEDS ORDERED: PHENYLEPHRINE 100MCG/ML 5ML SYR IV PRN (17:31)
[2019-03-02] MEDS ORDERED: fentaNYL citrate 100 MCG/2 ML VIAL IV PRN (17:31)
[2019-03-02] MEDS ORDERED: ONDANSETRON INJ 2 MG/ML 2 ML VIAL IV PRN ×2 (17:31→17:46)
[2019-03-02] MEDS: ONDANSETRON INJ 2 MG/ML 2 ML VIAL IV PRN (17:32)
[2019-03-02] MEDS ORDERED: MAGNESIUM HYDROXIDE SUSP 30 ML UDC PO PRN (17:46)
[2019-03-02] MEDS ORDERED: COUGH DROP (SUGAR FREE) LOZ 24 LOZ/1 BOX BUCCAL PRN (17:46)
[2019-03-02] MEDS ORDERED: BISACODYL 10 MG SUPP PR PRN (17:46)
[2019-03-02] MEDS ORDERED: NALOXONE HCL 0.4 MG/1 ML VIAL/CARP IV PRN (17:46)
[2019-03-02] MEDS ORDERED: HYDROmorphone INJ 0.5 MG/0.5 ML SYR IV PRN (17:46)
[2019-03-02] MEDS ORDERED: ONDANSETRON 4 MG OD TAB PO PRN (17:46)
[2019-03-02] MEDS ORDERED: DOCUSATE SODIUM 100 MG CAP PO PRN (17:46)
[2019-03-02] MEDS: DOCUSATE SODIUM/SENNA 50/8.6MG TAB PO SCH (21:01)
[2019-03-02] MEDS: ASPIRIN 81 MG ECTAB PO SCH (21:08)
[2019-03-02] MEDS: clonazePAM 0.5 MG TAB PO SCH (21:08)
[2019-03-02] MEDS: MoRPHine SULFATE 2 MG/ML CARP IV PRN (21:45)
--- NOTE | 2019-03-02 23:33 | Operative Report ---
DATE OF OPERATION: 03/02/2019 SURGEON: Dr. Obinna Carranza. ASTROBIOLOGIST: DEEP Short PREOPERATIVE DIAGNOSIS: Displaced right femoral neck fracture. POSTOPERATIVE DIAGNOSIS: Displaced right femoral neck fracture. PROCEDURE PERFORMED: Right cemented bipolar hip arthroplasty. COMPLICATIONS: None. ESTIMATED BLOOD LOSS: 100 mL. FLUID REPLACEMENT: 1000 mL crystalloid fluid replacement. SPECIMENS: Right femoral head sent for pathology. OPERATIVE INDICATIONS: The patient is an 84-year-old female who sustained a mechanical fall. She normally walks with use of a walker. She was brought to Emergency Room. X-rays revealed what look to be a valgus impacted femoral neck fracture ____ that was clearly displaced. The patient also had clinically significant external rotation of this leg compared to the opposite side. The patient was admitted by the hospitalist service, medically optimized, and indicated for surgical treatment. OPERATIVE IMPLANTS: Operative implants consisted of: 1. A Biomet generation 4, size 9 polished femoral stem. 2. A -3/28 mm articular ball. 3. A 45 mm bipolar shell and liner. 4. A size 10 centralizer. OPERATIVE PROCEDURE: The patient was taken to the Operating Room, identified and placed on the operating table in supine position. All contact areas were appropriately padded. IV antibiotics were provided by Anesthesia team. A spinal anesthetic was implemented. The patient was then placed in the left lateral decubitus position. An axillary roll was placed. Stuhlberg hip positioner was used for positioning. Right hip and leg were then prepped and draped in usual sterile fashion. A posterolateral approach of the right hip was then performed through a curvilinear incision centered over the greater trochanter. Sharp dissection was carried through the subcutaneous tissue down to the level of the IT band and gluteal fascia. The IT band and gluteal fascia was incised longitudinally in line with skin incision. The underlying greater trochanteric bursa was excised. The piriformis and external rotators were tagged and taken off the posterior aspect of the hip joint capsule. Great care was taken throughout the procedure to protect the sciatic nerve at all times. Posterior capsulotomy was then performed leaving a flap for later repair. Hip was internally rotated. Femoral neck osteotomy cut was made about a centimeter above the lesser trochanter below the fracture site. The femoral head was then removed and sized. We trialed the acetabulum and selected a 45 mm bipolar shell. Attention was then drawn to the femur. The proximal femur was entered with cookie cutter followed by canal finder and lateralizing reamer. I then broached beginning with a size 7, progressing up to 9. We had good fit at 9. We then trialed the hip. The -3 articular ball provided appropriate stability and full extension and external rotation and flexion time to 90 degrees, internal rotation over 70 degrees. We used the high offset stem to maximize stability. All trial implants were removed. I irrigated extensively. Cement restrictor was placed down the canal. A double batch of Palacos G cement was mixed and a size 9 polished stem with a 10 centralizer was then inserted. All extraneous cement was removed. This was held in place until the cement hardened. Once the cement hardened, a -3/28 mm articular ball with a 45 bipolar shell and liner were then placed and the hip was relocated. Attention was then drawn toward closing. The wound was irrigated with copious amounts of normal saline. I did inject locally with 30 mL of 0.5% Marcaine with epinephrine. The posterior capsule was then repaired with #2 Ti-Cron suture in a [id number] fashion. The external rotators were reapproximated to the posterior aspect of the hip abductors with #2 Ti-Cron suture. The IT band and gluteal fascia were then closed with #1 PDS suture in running fashion. The subcutaneous tissue was then closed with 2 layers, the deep layer with #1 Vicryl sutures and subcutaneous tissue with 2-0 Dexon suture in a buried interrupted fashion. The skin was closed with skin britni. Leg was then cleaned and dried and a sterile dressing of Xeroform, 4 x 4, sterile ABD pad and foam tape was applied. The patient then transferred to the Recovery Room in stable condition. The patient tolerated the procedure well with no complication. All needle and sponge counts were correct at the end of the operation. I attest to the content of the Intraoperative Record and any orders documented therein. Any exception s are noted below.
[2019-03-03] MEDS: LEVOTHYROXINE SODIUM 75 MCG TABLET PO SCH (05:29)
[2019-03-03] MEDS: OXYCODONE HCL IR 5 MG TAB (IMMEDIATE RELEASE) PO PRN ×2 (05:39→19:48)
[2019-03-03] MEDS: CEFAZOLIN 1000MG 1,000 MG/7.5 ML SYR IV SCH ×2 (05:39)
[2019-03-03] MEDS: MoRPHine SULFATE 2 MG/ML CARP IV PRN ×2 (07:25)
[2019-03-03] MEDS: ASPIRIN 81 MG ECTAB PO SCH ×2 (07:29→22:28)
[2019-03-03] MEDS: AZITHROMYCIN 250 MG TAB PO SCH (07:29)
[2019-03-03] MEDS: CHOLECALCIFEROL 1,000 UNITS TAB PO SCH (07:29)
[2019-03-03 07:38] LABS: Basophils # (auto) 0.01 K/uL (0-0.2); Basophils % (auto) 0.2 %; Eosinophils # (auto) 0.01 K/uL (0-0.5); Eosinophils % (auto) 0.2 %; Hematocrit (blood only) 34.6 % (37-47); Hemoglobin 10.8 g/dL (12.0-16.0); Immature Granulocytes # (auto) 0.02 K/uL (0.00-0.02); Immature Granulocytes % (auto) 0.3 %; Lymphocytes # (auto) 0.47 K/uL (1.2-3.4); Lymphocytes % (auto) 7.6 %; Mean Corpuscular Hgb Conc 31.2 g/dL (32-36); Mean Corpuscular Volume 85.6 fL (80-100); Mean Platelet Volume 9.7 fL (7.4-10.4); Monocytes % (auto) 12.9 %; Neutrophils # (auto) 4.91 K/uL (1.4-6.5); Neutrophils % (auto) 78.8 %; Platelet Count 230 K/uL (130-400); RDW Coefficient of Variation 15.6 % (11.5-14.5); RDW Standard Deviation 49.1 fL (36.4-46.3); Red Blood Count 4.04 M/uL (4.2-5.4); White Blood Count 6.22 K/uL (4.8-10.8)
[2019-03-03 08:07] LABS: BUN Creatinine Ratio 25.8 (10-20); Calcium 8.5 mg/dl (8.5-10.1); Creatinine Clr Calc Pharmacy 43.2 ml/min; Est GFR (African American) 96.9; Est GFR (Non-African American) 83.6
[2019-03-03] MEDS: clonazePAM 0.5 MG TAB PO SCH ×2 (09:06→22:27)
[2019-03-03] MEDS: DONEPEZIL HCL 10 MG TAB PO SCH (09:06)
--- NOTE | 2019-03-03 09:34 | Progress Note ---
DATE: 03/03/2019 SUBJECTIVE: An 84-year-old white female postop day 1 from right cemented bipolar hip arthroplasty for a displaced femoral neck fracture. She is doing pretty well this morning. Having some pain but seems controlled. No other complaints. No other pains. Denies any chest pain or shortness of breath. OBJECTIVE: VITAL SIGNS: Temperature 37.0. Vital signs stable. GENERAL: Physical examination shows a pleasant elderly female. She is sitting up in bed, looks comfortable. EXTREMITIES: Examination of the right leg reveals the leg lengths to be equal. Hip is located. Dressing is clean, dry and intact. Thigh is soft and supple. She is neurologically intact. She can dorsiflex and plantarflex her foot appropriately. LABORATORY DATA: Hemoglobin 10.8, hematocrit 34.6. Electrolytes stable. ASSESSMENT: An 84-year-old white female postop day 1 from right cemented bipolar hip arthroplasty for fracture. She is doing pretty well. Hip is located. She is neurologically intact. Pain seems to be controlled. PLAN: 1. DVT prophylaxis including thigh-high TEDs, SCDs, and baby aspirin twice a day for the next 6 weeks. 2. PT/OT. She can fully weightbear on this right leg. Should obey total hip precautions. 3. Anemia. Currently on iron supplementation. Asymptomatic. 4. Medical management as per the medicine service. 5. Disposition: She is orthopedically okay for discharge any time medically stable. She will likely need some degree of rehab situation or jail facility. I need to see her back 2 weeks out from surgery. Any orthopedic questions can be directed to me at [phone].
[2019-03-03] MEDS: LACTATED RINGER'S 1,000 ML IV SCH ×2 (12:11)
[2019-03-03] MEDS ORDERED: SODIUM CHLORIDE 0.9% 1000ML 500 ML IV ONE (14:08)
--- NOTE | 2019-03-03 14:09 | Hospitalist Progress Note ---
Date of Service March 03, 2019 Assessment & Plan (1) Closed right hip fracture: hip fracture order set, admit to medical floor s/p bilateral hemiarthroplasty with Dr. 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, takes Ethambutol and Azithromycin infection is under good control, no current issues on oxygen chronically, no current distress (4) Anxiety: use Klonipin PRN patient is calm today (5) Dementia: continue on Aricept she is oriented x 3, pleasant, good historian dementia must be mild (6) Hypothyroidism: continue Synthroid (7) H/O: lung cancer: treated with resection, was in left upper lobe in full remission (8) Fall: caused the fracture good historian, sounds like mechanical fall no loss of consciousness, no reason to suspect syncope plan for PT/OT will need SNF for rehab Subjective patient lethargic today she denies dyspnea, chest pain or cough she admits to some right hip pain RN called to report low UO, will give NSS bolus and observe vitals stable Hb down slightly at 10.8 and BMP is normal Review of Systems Review of Systems: All systems reviewed & are unremarkable except as noted in HPI & below Musculoskeletal: + joint pain (right hip) Physical Exam Constitutional: WD/WN, vitals as above Eyes: PERRL, conjunctivae normal, anicteric sclerae ENMT: external ear and nose normal, oropharynx normal Neck: trachea midline, no thyromegaly Respiratory: normal respiratory effort, lungs clear to auscultation Cardiovascular: RRR, no murmur, no edema Gastrointestinal (Abdomen): normal bowel sounds, soft, nontender, no hepatosplenomegaly Musculoskeletal: Head/Neck/Chest: normocephalic and head atraumatic Extremities: extremities normal to inspection, + limited ROM of extremities (right hip, cannot move due to pain) and strength 5/5 throughout; no muscle atrophy, no cyanosis and no clubbing Skin: no rashes, warm and dry Neurologic: patellar DTR's 2+ bilat, sensation intact and PERRL, EOMI, accommodation nl, no face palsy, no dysarthria Psychiatric: Orientation: oriented to person and oriented to place; + not alert (slightly lethargic) and + not oriented to time Lymphatic: no cervical or axillary lymphadenopathy Results & Data Vital Signs (Past 12 Hours) Vital Signs Temp Pulse Pulse Resp BP Pulse Ox 03/03/19 11:30 102/62 03/03/19 11:22 36.6 C 84 18 83/49 L 97 03/03/19 07:55 37.0 C 87 18 104/60 97 03/03/19 04:21 88 97 03/03/19 04:07 93 03/03/19 03:50 36.7 C 103 H 16 110/66 48 L Laboratory Results Laboratory Results - last 24 hr 03/03/19 03/03/19 07:04 07:04 WBC 6.22 RBC 4.04 L Hgb 10.8 L Hct 34.6 L MCV 85.6 MCH 26.7 MCHC 31.2 L RDW Std Deviation 49.1 H RDW Coeff of Chadd 15.6 H Plt Count 230 MPV 9.7 Immature Gran % (Auto) 0.3 Neut % (Auto) 78.8 Lymph % (Auto) 7.6 [place] % (Auto) 12.9 Eos % (Auto) 0.2 Baso % (Auto) 0.2 Immature Gran # (Auto) 0.02 Neut # (Auto) 4.91 Lymph # (Auto) 0.47 L [place] # (Auto) 0.80 H Eos # (Auto) 0.01 Baso # (Auto) 0.01 Sodium 138 Potassium 4.0 Chloride 101 Carbon Dioxide 28 Anion Gap 9.0 BUN 15 Creatinine 0.59 L Est Cr Clr Drug Dosing 43.2 Est GFR ( Amer) 96.9 Est GFR (Non-Af Amer) 83.6 BUN/Creatinine Ratio 25.8 H Glucose 81 Calcium 8.5 Medications Administered Current Inpatient Medications Albuterol (Ventolin Hfa) 2 puffs INH Q6 PRN PRN Reason: Shortness Of Breath Or Wheezin Stop: 03/31/19 12:16 Aspirin (Ecotrin Ectab) 81 mg PO BID JAM Stop: 04/01/19 20:59 Last Admin: 03/03/19 07:29 Dose: 81 mg Documented by: Azithromycin (Zithromax) 500 mg PO [id number] [facility] Stop: 03/08/19 17:59 Last Admin: 03/03/19 07:29 Dose: 500 mg Documented by: Bisacodyl (Dulcolax) 10 mg FL DAILY PRN PRN Reason: Constipation Stop: 03/31/19 12:16 Bisacodyl (Dulcolax) 10 mg FL DAILY PRN PRN Reason: Constipation Stop: 04/01/19 17:45 Clonazepam (Klonopin) 0.25 mg PO BID [facility] Stop: 03/31/19 20:59 Last Admin: 03/03/19 09:06 Dose: 0.25 mg Documented by: Docusate Sodium (Colace) 100 mg PO DAILY PRN PRN Reason: Constipation Stop: 04/01/19 17:45 Donepezil HCl (Aricept) 10 mg PO DAILY [facility] Stop: 04/01/19 08:59 Last Admin: 03/03/19 09:06 Dose: 10 mg Documented by: Ethambutol HCl (Myambutol) 800 mg PO MoWeFr@0900 [facility] Stop: 04/01/19 08:59 Last Admin: 03/02/19 08:25 Dose: 800 mg Documented by: Hydromorphone HCl (Dilaudid) 0.25 - 0.5 mg IV Q20M PRN PRN Reason: Moderate/Severe Pain Stop: 03/16/19 17:45 Lactated Ringer's (Lr) 1,000 mls @ 80 mls/hr IV .[id number] [facility] Stop: 03/31/19 12:16 Last Infusion: 03/03/19 14:16 Dose: 0 mls/hr Documented by: Sodium Chloride (Nss 1000ml) 500 mls @ 250 mls/hr IV .Q2H ONE Stop: 03/03/19 16:07 Last Admin: 03/03/19 14:16 Dose: 250 mls/hr Documented by: Levothyroxine Sodium (Synthroid) 75 mcg PO DAILYBB [facility] Stop: 04/01/19 06:29 Last Admin: 03/03/19 05:29 Dose: 75 mcg Documented by: Magnesium Hydroxide (Milk Of Magnesia) 30 ml PO DAILY PRN PRN Reason: Constipation Stop: 03/31/19 12:16 Magnesium Hydroxide (Milk Of Magnesia) 30 ml PO DAILY PRN PRN Reason: Constipation Stop: 04/01/19 17:45 Menthol (Nice) 1 dionne BUCCAL Q2H PRN PRN Reason: Sore Throat Stop: 04/01/19 17:45 Morphine Sulfate (Morphine Sulfate) 2 mg IV Q2H PRN PRN Reason: MODERATE Pain (Scale 4,5,6) Stop: 03/15/19 12:16 Last Admin: 03/03/19 07:25 Dose: 2 mg Documented by: Naloxone HCl (Narcan) 0.1 mg IV UD PRN PRN Reason: Opiate Overdose Stop: 03/31/19 12:16 Naloxone HCl (Narcan) 0.1 mg IV UD PRN PRN Reason: Opioid Overdose Stop: 04/01/19 17:45 Ondansetron HCl (Zofran) 4 mg IV Q6H PRN PRN Reason: Nausea Stop: 03/31/19 21:40 Last Admin: 03/02/19 17:32 Dose: 4 mg Documented by: Ondansetron HCl (Zofran) 4 mg IV Q6H PRN PRN Reason: Nausea And Vomiting Stop: 04/01/19 17:45 Ondansetron HCl (Zofran Odt) 4 mg PO QID PRN PRN Reason: Nausea Stop: 04/01/19 17:45 Oxycodone HCl (Roxicodone Immediate Rel) 5 mg PO Q4H PRN PRN Reason: Moderate Pain (Scale 4,5,6) Stop: 03/16/19 17:45 Last Admin: 03/03/19 05:39 Dose: 5 mg Documented by: Ranitidine HCl (Zantac) 75 mg PO BID [facility] Stop: 03/31/19 20:59 Last Admin: 03/03/19 07:30 Dose: 75 mg Documented by: Senna/Docusate Sodium (Senokot S) 2 tab PO HS [facility] Stop: 03/31/19 20:59 Last Admin: 03/02/19 21:01 Dose: 2 tab Documented by: Vitamin D (Vitamin D3) 2,000 units PO DAILY [facility] Stop: 04/02/19 08:59 Last Admin: 03/03/19 07:29 Dose: 2,000 units Documented by:
[2019-03-03] MEDS: DOCUSATE SODIUM/SENNA 50/8.6MG TAB PO SCH (22:27)
[2019-03-04] MEDS: LACTATED RINGER'S 1,000 ML IV SCH ×3 (02:26→14:04)
[2019-03-04] MEDS: OXYCODONE HCL IR 5 MG TAB (IMMEDIATE RELEASE) PO PRN (03:33)
[2019-03-04] MEDS: LEVOTHYROXINE SODIUM 75 MCG TABLET PO SCH (06:05)
[2019-03-04 07:31] LABS: Hematocrit (blood only) 32.6 % (37-47); Hemoglobin 10.3 g/dL (12.0-16.0); Mean Corpuscular Hgb Conc 31.6 g/dL (32-36); Mean Corpuscular Volume 84.5 fL (80-100); Mean Platelet Volume 9.3 fL (7.4-10.4); Platelet Count 189 K/uL (130-400); RDW Coefficient of Variation 15.6 % (11.5-14.5); RDW Standard Deviation 48.1 fL (36.4-46.3); Red Blood Count 3.86 M/uL (4.2-5.4); White Blood Count 6.89 K/uL (4.8-10.8)
[2019-03-04] MEDS: AZITHROMYCIN 250 MG TAB PO SCH (09:08)
[2019-03-04] MEDS: clonazePAM 0.5 MG TAB PO SCH (09:08)
[2019-03-04] MEDS: DONEPEZIL HCL 10 MG TAB PO SCH (09:08)
[2019-03-04] MEDS: ASPIRIN 81 MG ECTAB PO SCH ×2 (09:08→20:37)
[2019-03-04] MEDS: CHOLECALCIFEROL 1,000 UNITS TAB PO SCH (09:08)
--- NOTE | 2019-03-04 09:17 | Progress Note ---
DATE: 03/04/2019 SUBJECTIVE: An 84-year-old white female postop day 2 from a right cemented bipolar hip arthroplasty for fracture. She seems to be pretty comfortable. Not complaining of any pain this morning. OBJECTIVE: VITAL SIGNS: Temperature 36.5. Vital signs stable. GENERAL: Physical examination reveals a frail, cachectic, elderly female. She is lying in bed, looks reasonably comfortable. EXTREMITIES: Examination of the right hip reveals her dressing to be clean, dry, and intact. Her hip is located. Her leg lengths are equal. No significant drainage. She can dorsiflex and plantarflex her foot appropriately. LABORATORY DATA: Hemoglobin 10.3. Hematocrit 32.6. Electrolytes are stable. ASSESSMENT: An 84-year-old white female postop day 2 from a right cemented bipolar hip arthroplasty for fracture. She seems to be doing well. No new complaints. Hip is located. Pain is controlled. PLAN: 1. DVT prophylaxis including thigh-high TEDs, SCDs, and would recommend aspirin 81 mg twice a day for 6 weeks. 2. PT/OT. She can fully weightbear on this right leg. Should obey total hip precautions. 3. Medical management as per the medicine service. 4. Disposition: She is orthopedically acceptable for discharge any time. I just need to see her back 2 weeks postop. Any orthopedic questions can be directed to me at [phone].
--- NOTE | 2019-03-04 10:44 | CT Scan Report ---
HEAD CT NONCONTRAST CT DOSE: 1848.94 mGy.cm HISTORY: altered mental status TECHNIQUE: Multiaxial CT images of the head were performed without the use of intravenous contrast. A utomated exposure control was utilized for this study. A dose lowering technique was utilized adheri ng to the principles of ALARA. Comparison: Head CT 02/24/2019. Findings: The paranasal sinuses and mastoid air cells are clear. The calvarium and skull base are int act. There is no mass, hematoma, midline shift, acute infarct. White matter hypodensity is nonspecifi c but suggestive of microvascular ischemic change. The ventricles and sulci demonstrate mild age-rela palmira involutional changes. Impression: No significant change compared to the prior study. No acute intracranial abnormality. Electronically signed by: Robby Ferrell M.D. 03/04/2019 10:43 AM
[2019-03-04] MEDS: ACETAMINOPHEN 500 MG TAB PO SCH ×3 (10:54→21:57)
[2019-03-04] MEDS ORDERED: clonazePAM 0.5 MG TAB PO PRN (11:01)
--- NOTE | 2019-03-04 11:01 | Hospitalist Progress Note ---
Date of Service March 04, 2019 Assessment & Plan (1) Closed right hip fracture: s/p bilateral hemiarthroplasty with Dr. 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 Sent for head CT which was negative for acute. Lethargy likely secondary to narcotic administration. Will hold narcotics and make clonazepam prn. - Abg on 03/04 was 7.4/44/69. Patient's O2 sat on 2L NC was noted as 98%. - By afternoon, lethargy had improved/resolved. Will continue with all sedating medications being PRN to avoid repeat lethargy. (10) DVT prophylaxis: Aspirin bid x 6 weeks Supervising Physician Co-Signing Physician Notes I supervised Elisabet Tyler NP on the care of this patient. I independently interviewed and examined the patient. We discussed the patient's status and her plan of care for the day. The plan is as written in her note. Subjective Ms. Orozco is very lethargic today. She knows her name and states that the nurses are telling her she's at [facility] but she is sure she's in a [facility] hospital. She reports feeling generally miserable. She is having a hard time staying awake while we are talking. Review of Systems Review of Systems: All systems reviewed & are unremarkable except as noted in HPI & below Physical Exam Physical Exam: General: no distress Eyes: normal inspection, pinpoint pupils Respiratory: chest non tender, clear to auscultation, normal breath sounds, no respiratory distress, no accessory muscle use Cardiac: regular rate and rhythm, no rub or gallop, no murmur, no edema, no jvd GI/: active bowel sounds, no abd pain or tenderness, soft, non distended Extremities: normal range of motion, normal strength, non tender Neuro/Psych: lethargic and oriented x 2, unhappy Skin: normal color, dry Results & Data Vital Signs (Past 12 Hours) Vital Signs Temp Pulse Pulse Resp BP Pulse Ox 03/04/19 07:14 36.5 C 90 16 134/71 98 03/03/19 23:20 36.8 C 90 15 123/71 98
[2019-03-04 13:16] LABS: Allen Test Pos (Pos); HCO3 ABG 27 mmol/L (19-24); Oxygen Saturation ABG 93.5 % (90-95); PCO2 ABG 44 mmHg (35-46); PO2 ABG 69 mm/Hg (80-95)
[2019-03-04] MEDS: DOCUSATE SODIUM/SENNA 50/8.6MG TAB PO SCH (20:37)
[2019-03-05] MEDS: LACTATED RINGER'S 1,000 ML IV SCH (02:19)
[2019-03-05] MEDS: ACETAMINOPHEN 500 MG TAB PO SCH ×3 (05:44→21:34)
[2019-03-05] MEDS: LEVOTHYROXINE SODIUM 75 MCG TABLET PO SCH (05:44)
[2019-03-05] MEDS: ASPIRIN 81 MG ECTAB PO SCH ×2 (08:23→20:42)
[2019-03-05] MEDS: ETHAMBUTOL HCL 400 MG TAB PO SCH (08:23)
[2019-03-05] MEDS: CHOLECALCIFEROL 1,000 UNITS TAB PO SCH (08:24)
[2019-03-05] MEDS: DONEPEZIL HCL 10 MG TAB PO SCH (08:24)
--- NOTE | 2019-03-05 08:55 | Progress Note ---
DATE: 03/05/2019 SUBJECTIVE: An 84-year-old white female postop day 3 from right cemented bipolar hip arthroplasty for fracture. She denies any pain this morning. No new complaints. OBJECTIVE: VITAL SIGNS: Temperature 37.1. Vital signs stable. GENERAL: Physical examination shows a pleasant elderly female. She is lying in bed, looks pretty comfortable. She denies having any pain. MUSCULOSKELETAL: Her hip is located. Dressing is clean, dry and intact. No drainage. Thigh is soft and supple. She is neurologically intact. ASSESSMENT: An 84-year-old white female postop day 3 from a right cemented bipolar hip arthroplasty, doing orthopedically well. Seems to be at baseline. Pain is controlled. PLAN: 1. DVT prophylaxis including thigh-high TEDs, SCDs, and aspirin twice a day for 6 weeks. 2. PT/OT. She can weightbear as tolerated. Right total hip protocol. 3. Pain control, doing well with current pain regimen. 4. Medical management as per the medicine service. 5. Disposition: She is orthopedically acceptable for discharge any time. I need to see her back 2 weeks from her surgery date. Any orthopedic questions can be directed to me at [phone].
[2019-03-05 09:01] LABS: BUN Creatinine Ratio 21.8 (10-20); Calcium 8.8 mg/dl (8.5-10.1); Creatinine Clr Calc Pharmacy 75.1 ml/min; Est GFR (African American) 116.1; Est GFR (Non-African American) 100.2; Magnesium 1.6 mg/dl (1.8-2.4); Potassium 3.5 mmol/L (3.5-5.1)
[2019-03-05] MEDS: ONDANSETRON INJ 2 MG/ML 2 ML VIAL IV PRN (10:20)
[2019-03-05] MEDS ORDERED: PROCHLORPERAZINE 10 MG in SYRINGE 8 ML IV PRN (11:52)
--- NOTE | 2019-03-05 13:17 | Hospitalist Progress Note ---
Date of Service March 05, 2019 Assessment & Plan (1) Closed right hip fracture: - S/p bilateral hemiarthroplasty on 03/02, POD#3. - Ortho following, will need to follow up in 2 weeks post op. - Pain control with Tylenol 1 gm q8hr scheduled. Holding narcotics due to confusion. - DVT ppx: Aspirin 81 mg BID. - PT/OT following, WBAT with right total hip protocol; plan for rehab once medically stable. Referral was placed for [facility]. (2) Acute encephalopathy: - Developed increased lethargy on 03/04; head CT was negative. - Now improving following discontinuation of narcotics; home benzo was changed to prn. - ABG was within normal limits. - U/a was negative for infection; consider repeat infectious work up. - Mental status now returned to baseline; consider stroke work up for recurrent symptoms. (3) Acute blood loss as cause of postoperative anemia: - Likely related to intra op blood loss and diluational from IV fluds. - Will d/c IV fluids. - Most recent hgb was 10.3 -- monitor intermittently. 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 (6) Anxiety: - Home klonopin changed to prn due to lethargy; will need to monitor for benzo withdrawal. (7) Dementia: - Continue Aricept as prescribed. (8) Hypothyroidism: - Continue Synthroid as prescribed. - Most recent TSH was 2.5. (9) H/O: lung cancer: - S/p CHASIDY lung resection. (10) Fall: - Likely a mechanical fall, no indication for further work up. - Rehab at discharge. (11) Electrolyte abnormality: - Mag level 1.6 -- ordered mag sulfate 2 gm IV. (12) DVT prophylaxis: - Aspirin 81 mg BID. Dispo: Med/surg; discharge to [facility] pending placement. Supervising Physician Co-Signing Physician Notes Attending Attestation - Chart reviewed, care plan d/w DEEP Parrish. I agree w/ the juarez components of her documentation. POD #3 s/p ORIF of R hip Fx. Post-op course complicated by acute delirium in setting of baseline dementia and mild acute blood loss anemia. Awaiting placement for rehab. Labs/vitals acceptable. Replace low mag. Neftali Cody MD Subjective Pt. complains of generalized fatigue today. She has episode of nausea/vomiting this morning; has ongoing nausea. Had BM this morning, denies constipation. Denies right hip pain, chest pain, SOB, LE edema. Confusion is now resolved, family member is present at bedside and states mental status is at baseline. Plan for SNF pending placement. Review of Systems Review of Systems: All systems reviewed & are unremarkable except as noted in HPI & below Constitutional: + fatigue, + weakness and + anorexia; no fever and no chills Respiratory: no cough, no dyspnea and no wheezing Cardiovascular: no chest pain, no palpitations and no edema Gastrointestinal: + nausea and + vomiting; no abdominal pain, no constipation and no diarrhea/loose stools Genitourinary: no difficulty urinating Musculoskeletal: no back pain and no joint pain Integumentary: no non-healing lesions Allergy / Immunological: no rash Physical Exam Physical Exam: General: Resting comfortably in no apparent distress; A&OX3 HEENT: NC/AT; PERRLA with EOMI; [place] conjunctiva, MMM. Neck: Supple and nontender Cardiac: RRR w/o murmurs, gallops or rubs Lungs: CTA bilaterally; No rhonchi, wheezing, or rales Abdomen: Bowel normoactive X 4; Nontender to palpation Extremities: Warm. No edema present. Dressing in place over right hip. Neuro: No focal weakness Skin: No rash Results & Data Vital Signs (Past 12 Hours) Vital Signs Temp Pulse Resp BP Pulse Ox 03/05/19 07:13 37.1 C 80 18 131/72 95 Laboratory Results 03/05/19 Range/Units 08:27 Sodium 142 (136-145) mmol/L Potassium 3.5 (3.5-5.1) mmol/L Chloride 101 (98-107) mmol/L Carbon Dioxide 36 H (21-32) mmol/L Anion Gap 5.0 (3-11) BUN 7 (7-18) mg/dl Creatinine 0.34 L (0.6-1.2) mg/dl Est Cr Clr Drug Dosing 75.1 ml/min Est GFR ( Amer) 116.1 Est GFR (Non-Af Amer) 100.2 BUN/Creatinine Ratio 21.8 H (10-20) Glucose 91 (70-99) mg/dl Calcium 8.8 (8.5-10.1) mg/dl Magnesium 1.6 L (1.8-2.4) mg/dl
[2019-03-05] MEDS: MAGNESIUM SULFATE / D5W 1 GM/100 ML BAG IV SCH ×2 (13:34→14:31)
[2019-03-05] MEDS: DOCUSATE SODIUM/SENNA 50/8.6MG TAB PO SCH (20:44)
[2019-03-06] MEDS ORDERED: KETOROLAC 30 MG/ML VIAL IV ONE (00:41)
[2019-03-06] MEDS: ACETAMINOPHEN 500 MG TAB PO SCH ×2 (06:21→14:38)
[2019-03-06] MEDS: LEVOTHYROXINE SODIUM 75 MCG TABLET PO SCH (06:22)
[2019-03-06 07:17] LABS: BUN Creatinine Ratio 20.3 (10-20); Calcium 8.5 mg/dl (8.5-10.1); Creatinine Clr Calc Pharmacy 54.3 ml/min; Est GFR (African American) 104.4; Est GFR (Non-African American) 90.1; Magnesium 1.8 mg/dl (1.8-2.4); Potassium 3.2 mmol/L (3.5-5.1)
[2019-03-06] MEDS ORDERED: POTASSIUM CHLORIDE 20 MEQ TABCR PO STA (07:49)
[2019-03-06] MEDS: ASPIRIN 81 MG ECTAB PO SCH (08:57)
[2019-03-06] MEDS: CHOLECALCIFEROL 1,000 UNITS TAB PO SCH (08:57)
[2019-03-06] MEDS: DONEPEZIL HCL 10 MG TAB PO SCH (08:57)
[2019-03-06] MEDS: AZITHROMYCIN 250 MG TAB PO SCH (08:58)
--- NOTE | 2019-03-06 14:35 | Discharge Summary ---
Date of Service March 06, 2019 Admission HPI Per Admitting Provider 84 yo female with history of DONYA infection and COPD and mild dementia, presented to the ED after falling and suffering right hip pain. She says she was cleaning her dresser, planning on changing sides of the room since her roomate had left and she wanted the bed by the window. She was leaning over cleaning the bottom shelf and she lost her balance and fell on her right side. She immediately had pain and could not ambulate. She did not strike her head. She did not lose consciousness. EMS brought her to the ED. Her vitals were stable and labs were stable. Imaging showed a right slightly impacted subcapital femoral neck fracture. Pain was controlled. Admission requested. Discussed with patient that surgery would be the only way to fix the fracture so that she might regain her mobility. She says that she ambulates independently with a rolling walker. Has a history of multiple surgeries to her left knee but she still gets around well. She says that she would want to keep her independence so she would want surgery if recommended. Her DONYA infection is chronic, well controlled on Ethambutol and Azithromcyin, alternating days during the week. Admission Exam Per Admitting Provider Constitutional: WD/WN, vitals as above Eyes: PERRL, conjunctivae normal, anicteric sclerae ENMT: external ear and nose normal, oropharynx normal Neck: trachea midline, no thyromegaly Respiratory: normal respiratory effort, lungs clear to auscultation Cardiovascular: RRR, no murmur, no edema Gastrointestinal (Abdomen): normal bowel sounds, soft, nontender, no hepatosplenomegaly Musculoskeletal: Head/Neck/Chest: normocephalic and head atraumatic Extremities: extremities normal to inspection, + limited ROM of extremities (right hip, cannot move due to pain) and strength 5/5 throughout; no muscle atrophy, no cyanosis and no clubbing Skin: no rashes, warm and dry Neurologic: patellar DTR's 2+ bilat, sensation intact and PERRL, EOMI, accommodation nl, no face palsy, no dysarthria Psychiatric: A+Ox3, euthymic affect Lymphatic: no cervical or axillary lymphadenopathy Principal Diagnosis Right Hip Fracture Discharge Exam General: Resting comfortably in no apparent distress; A&OX3 HEENT: NC/AT; PERRLA with EOMI; [place] conjunctiva, MMM. Neck: Supple and nontender Cardiac: RRR w/o murmurs, gallops or rubs Lungs: on 2L via NC; clear to auscultation throughout. Abdomen: Bowel normoactive X 4; Nontender to palpation Extremities: Warm. No edema present. Dressing in place over right hip. Neuro: No focal weakness Skin: No rash Discharge Data Allergies Allergy/AdvReac Type Severity Reaction Status Date / Time morphine AdvReac Intermediate VOMITING Verified 03/01/19 10:30 codeine AdvReac Mild HALLUCINATI Verified 03/01/19 10:30 ONS Consultations 03/01/19 10:36 ED Decision to Admit Stat 03/01/19 12:17 Consult Anesthesiology Routine Consult Case Management - Discharge Planning Routine Consult Orthopedic Surgery Routine 03/02/19 17:46 Consult Case Management - Discharge Planning Routine Procedures Performed Operation Date: 03/02/19 11:10 Actual Procedures p Right Hip Hemiarthroplasty(Right) - Obinna Carranza MD Ordered Studies 03/01/19 CXR, Hip/Pelvis XR 03/02/19 Hip XR 03/04/19 09:35 CT head/brain wo con Routine Hospital Course (1) Closed right hip fracture: S/p bilateral hemiarthroplasty on 03/02, POD#3. Ortho following, will follow up 2 weeks post op. Pain control with Tylenol 1 gm q8hr scheduled. Narcotics were held due to development of encephalopathy on 03/04. Aspirin 81 mg BID for DVT ppx. PT/OT recommended rehab -- will be discharged to [facility]. (2) Acute encephalopathy: Developed increased lethargy on 03/04; head CT was negative. ABG was WNL. U/a negative for infection. Sedating meds/narcotics were disconitued. Klonopin was changed to prn. Mental status improved back to baseline. (3) Acute blood loss as cause of postoperative anemia: Likely related to intra op blood loss and dilutional from IV fluids. 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 (6) Anxiety: Home klonopin changed to prn due to lethargy; monitored for benzo withdrawal. (7) Dementia: Continued Aricept as prescribed. (8) Hypothyroidism: Continued Synthroid as prescribed. Most recent TSH was 2.5. (9) H/O: lung cancer: S/p CHASIDY lung resection. (10) Fall: Likely a mechanical fall, no indication for further work up. Rehab at discharge. (11) Electrolyte abnormality: Replaced as needed. (12) DVT prophylaxis: Aspirin 81 mg BID. Discharged to [facility] on 03/06/19. (13) Severe protein-calorie malnutrition: likely due to DONYA infection. BMI 15.8. Staff reported poor appetite throughout the stay. Consider appetite stimulant. Total Time Total Time Spent Total Time Spent (In Minutes): >30 minutes Total Time Includes: Examination of the Patient, Discharge Planning, Medication Reconciliation, Communication With Other Providers and Other Discharge Plan Discharge Items Patient Disposition: Transfer Nursing Home [facility] Reason For Visit: RIGHT HIP FRACTURE Discharge Diagnosis: Right Hip Fracture Condition: Good Discharge Goals: Decrease discomfort, Improve disease control, Improve function, Increase independence, Improve nutritional status and Prevent disease Activity: Per 'Additional Instructions' section Activity Comment: Obey hip precautions at all times Weightbearing: Right weightbearing Weightbearing Comment: Weightbear as tolerated obeying hip precautions at all times. Non-emergency contact: Primary Care Provider and Surgeon Call non-emergency contact if: you have any medication questions, your symptoms worsen, your pain is not controlled, your pain is worsening, your pain is unusual for you, your pain is concerning for you, you have a fever, your wound has increased redness, your wound has increased drainage and your wound pain has increased Follow-up/Referrals: Jimenez Guerrero [Primary Care Provider] - Diet: Regular Addtl Provider Instructions: 1. Closed Right Hip Fracture * Status post repair on 03/02/2019. * Please schedule a follow up with orthopedics 2 weeks post-operatively ( week of 03/16/2019) * Please continue Aspirin 81 mg twice daily for DVT prophylaxis. * Please continue Tylenol 1 gm every 8 hours for pain control; avoid narcotics due to recent confusion. 2. Please monitor lab work weekly, including CBC with differential, CMP and Magnesium level. Replace electrolytes as needed. 3. Please schedule an appointment with her primary care provider following discharge from SNF. ACTIVITY RECOMMENDATIONS: Physical Therapy: * Aggressive physical therapy is not usually needed. You will learn to take care of yourself safely and walk. * Follow the "Hip Precautions Instructions." * In some cases, the group social worker at the hospital will arrange to have a therapist come to your house for the first couple of weeks to help you learn these skills. * You need to practice on your own or with the help of a family member as needed. * When you learn these skills, most of the therapy can be done on your own. Home Exercise: * You were shown a series of exercises in the hospital. Do these exercises three to four times each day including the exercises you were shown in physical therapy. Walking: * Get up and walk several times each day. For the first four weeks, try not to stand or walk for more than one hour at a time. If you do stand or walk for more than one hour, you will not hurt anything, but your leg will likely swell. * As you feel comfortable, you may change from the walker or crutches to a cane and then to independent walking. MEDICATIONS: New Medicine: * You will likely be taking one or more of these medicines: 1. Iron Sulfate - Take three times each day for the month after surgery to help you replace the blood lost during surgery. 2. Aspirin - Thins your blood to lessen the chance of forming a blood clot. * The most common side effects of pain medicine and iron are nausea and constipation. If nausea or constipation is too much of a problem or if you have any questions about your new medicines or doses, call [facility] at . We will try to help you manage these issues. "VERY IMPORTANT TO READ AND REVIEW" Pain: * The immediate post-operative period after hip replacement surgery is often quite painful. * You are given a prescription for pain medicine. You should take it, as directed, when you need it, especially before physical therapy and before going to bed. Pain that interferes with sleep is very common and can last several months. * You will likely need pain medicine for the first two to four weeks. It will not stop all of the pain. The pain will lessen and as you feel better, you may change to milder pain medicine such as Tylenol. * The most common side effects of pain medicine are nausea and constipation, so don't take more than you need. SPECIAL CARE INSTRUCTIONS: TEDs/Elastic Stockings: * The white elastic stockings help limit swelling and prevent blood clots from forming in your legs. The more you wear them, the more they work. * Wear them for six weeks. Prevention of Infection: * Take antibiotics one hour before any dental cleaning, dental work, urological procedure, gastrointestinal procedure or any invasive surgery in order to prevent your new joint from getting infected. * You may get the antibiotics from the doctor performing the procedure or you may call our office at before and we will call in a prescription to the pharmacy of your choice. Things to Watch For: * Drainage from the incision site that occurs more than one week after your surgery. * Severely increased leg pain or swelling. * Increased redness at the incision site. * Fever above 102 degrees Fahrenheit. * Unusual chest pain or shortness of breath. * Unusual pain or burning with urination. Call [facility] at with any of the above problems or if you have any questions about your medicines or recovery. FOLLOW UP VISIT: Make an appointment to see your doctor for approximately two weeks after surgery for a progress check and staple removal by calling the office at . Prescriptions: Continued levothyroxine [Synthroid] 75 mcg tablet 75 mcg PO QAM RF: 0 ranitidine HCl 75 mg Tablet 75 mg PO BID RF: 0 ethambutol [Myambutol] 400 mg tablet 800 mg PO 3XWK RF: 0 docusate sodium [Colace] 100 mg Capsule 100 mg PO UD PRN (Reason: Constipation) RF: 0 albuterol sulfate [Ventolin HFA] 90 mcg/actuation HFA aerosol inhaler 2 puff Inhalation Q6 PRN (Reason: Shortness Of Breath Or Wheezing) RF: 0 azithromycin [Zithromax] 500 mg tablet 500 mg PO 4XWK RF: 0 cholecalciferol (vitamin D3) [Vitamin D3] 2,000 unit Capsule 2,000 unit PO DAILY RF: 0 donepezil 10 mg tablet 10 mg PO DAILY RF: 0 Discontinued clonazepam [Klonopin] 0.5 mg tablet 0.25 mg PO BID RF: 0 acetaminophen [Tylenol Extra Strength] 500 mg Tablet 500 mg PO UD PRN (Reason: Pain) RF: 0 aspirin 325 mg Tablet,Delayed Release (Dr/Ec) 325 mg PO DAILY RF: 0 ondansetron 4 mg Tablet,Disintegrating 4 mg Translingual QID PRN (Reason: Nausea) RF: 0 Stand-Alone Forms: [facility] Discharge Orders: Discharge Order (Routine); Ordered 03/06/19 Ordered By: Rose Parrish Skilled Items Patient informed of condition?: Yes DNR: No Discharge Level of Care: Skilled Communicable Disease: No Discharge Prognosis: Improving Admission Data Admit Date/Time: 03/01/19 10:48 Attending Provider: Neftali Cody Admit Provider: Angel Crowe Primary Care Provider: Jimenez Guerrero Other Providers: Viry Almaguer ; Mark Andrade ; Miguel A Atkinson Service: Medical Other Interventions: Discharge Summary Assessment (RN) Last Done: 03/06/19 15:22 Pending Studies at Discharge: No DC Date/Time DO NOT enter until pt leaves facility: 03/06/19 15:56 Supervising Physician Co-Signing Physician Notes Attending Attestation and Discharge Note: Pt seen/examined, chart reviewed, discharge care plan d/w PA Rose Parrish. I agree w/ the juarez components of her admission documentation. 84yo female with h/o lung cancer, DONYA infection, and chronic hypoxic respiratory failure who presented with right hip fracture. s/p ORIF of right hip fracture while here. Course complicated by mild encephalopathy and mild acute blood loss anemia. Has severe protein calorie malnutrition likely due to her DONYA infection with BMI of 15. From hip standpoint she did ok and was orthopedically stable. Discharge exam: gen - NAD, thin mouth - no thrush heart - RRR, s1, s2 lungs - markedly decreased BS on left with course BS; right lung clear; no distress abd - soft, NT, BS+ ext - minimal right ankle edema musculo - right hip dressings intact and clean; mild edema about the upper right thigh Neftali Cody MD
== END 2019-03-06 15:56 | DRG 469 ==
LOC: ED 09:48 → 3N 10:48 → SUATTDRO 10:48 → 3N 11:30

== ENCOUNTER 2019-07-09 15:18 | Inpatient (IN) ==
[2019-07-09] MEDS ORDERED: SODIUM CHLORIDE 0.9% 500 ML IV SCH (15:45)
[2019-07-09 15:59] LABS: Basophils # (auto) 0.02 K/uL (0-0.2); Basophils % (auto) 0.5 %; Eosinophils # (auto) 0.05 K/uL (0-0.5); Eosinophils % (auto) 1.2 %; Hematocrit (blood only) 38.8 % (37-47); Hemoglobin 12.4 g/dL (12.0-16.0); Immature Granulocytes # (auto) 0.01 K/uL (0.00-0.02); Immature Granulocytes % (auto) 0.2 %; Lymphocytes # (auto) 1.22 K/uL (1.2-3.4); Lymphocytes % (auto) 28.8 %; Mean Corpuscular Hemoglobin 27.3 pg (25-34); Mean Corpuscular Volume 85.3 fL (80-100); Mean Platelet Volume 9.8 fL (7.4-10.4); Monocytes # (auto) 0.44 K/uL (0.11-0.59); Monocytes % (auto) 10.4 %; Neutrophils % (auto) 58.9 %; Platelet Count 279 K/uL (130-400); RDW Coefficient of Variation 14.4 % (11.5-14.5); Red Blood Count 4.55 M/uL (4.2-5.4); White Blood Count 4.24 K/uL (4.8-10.8)
--- NOTE | 2019-07-09 15:59 | XRay Report ---
XR chest 1V portable CLINICAL HISTORY: weakness dyspnea COMPARISON STUDY: 03/01/2019 FINDINGS: Diffuse 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 Left apical bleb-like changes unaltered. Chronic pleural thickening over the pulmonary apices conside red chronic. IMPRESSION: Chronic and emphysematous change. No acute process. The above report was generated using voice recognition software. It may contain grammatical, syntax or spelling errors. Electronically signed by: Daog Franklin M.D. 07/09/2019 3:58 PM
[2019-07-09] MEDS ORDERED: POTASSIUM CHLORIDE 20 MEQ TABCR PO STA ×2 (16:01→16:49)
[2019-07-09 16:15] LABS: Alanine Aminotransferase 12 U/L (12-78); Albumin Level 3.1 gm/dl (3.4-5.0); Aspartate Aminotransferase 22 U/L (15-37); BUN Creatinine Ratio 34.6 (10-20); Blood Urea Nitrogen 20 mg/dl (7-18); Calcium 8.4 mg/dl (8.5-10.1); Carbon Dioxide 33 mmol/L (21-32); Chloride 104 mmol/L (98-107); Creatinine Clr Calc Pharmacy 46.1 ml/min; Est GFR (Non-African American) 84.5; Glucose 90 mg/dl (70-99); Potassium 3.2 mmol/L (3.5-5.1); Sodium 142 mmol/L (136-145)
--- NOTE | 2019-07-09 16:18 | CT Scan Report ---
CT head/brain wo con CT DOSE: 690.05 mGycm HISTORY: Mental status change pt c/o ams TECHNIQUE: Multiaxial CT images of the head were performed without the use of intravenous contrast. A dose lowering technique was utilized adhering to the principles of ALARA. Comparison: 03/04/2019 Findings: The paranasal sinuses and mastoid air cells are clear. The calvarium and skull base are int act. The ventricles and sulci are within normal limits. There is no mass, hematoma, midline shift, or acute infarct. Significant chronic small vessel changes throughout both cerebral hemispheres. This i s unchanged from the prior study. Impression: No acute intracranial abnormality. Chronic small vessel change. The above report was generated using voice recognition software. It may contain grammatical, syntax or spelling errors. Electronically signed by: Dago Franklin M.D. 07/09/2019 4:17 PM
[2019-07-09 16:26] LABS: Albumin Globulin Ratio 0.9 (0.9-2); Alkaline Phosphatase 70 U/L (45-117); Bilirubin,Total 0.3 mg/dl (0.2-1); Creatine Kinase 58 U/L (26-192); Globulin 3.4 gm/dl (2.5-4.0); Thyroid Stimulating Hormone 0.756 uIu/ml (0.300-4.500); Total Protein 6.5 gm/dl (6.4-8.2); Troponin I < 0.015 ng/ml (0-0.045)
[2019-07-09] MEDS ORDERED: SODIUM CHLORIDE 0.9% 1000ML 500 ML IV ONE (16:56)
[2019-07-09] MEDS ORDERED: cefTRIAXone SODIUM 2,000 MG/70 ML BAG IV STA (16:56)
[2019-07-09 17:03] LABS: Appearance Urine Clear (Clear); Bacteria Urine Automated Negative (Negative); Bilirubin Urine Negative (Negative); Blood Urine 1+ (Negative); Color Urine Yellow; Epithelial Cell Urine Auto 0-5 /lpf (0-5); Glucose Urine UA Negative (Negative); Ketones Urine Negative (Negative); Leukocyte Esterase Urine Negative (Negative); Nitrite Urine Negative (Negative); Protein Urine Negative (Negative); Specific Gravity Urine 1.016 (1.000-1.030); Urobilinogen Urine Negative (Negative); pH Urine 5.5 (4.5-7.5)
[2019-07-09] MEDS ORDERED: LORazepam 1 MG/2 ML VIAL IV STA (17:34)
[2019-07-09] MEDS: POTASSIUM CHLORIDE / WTR 10 MEQ/100 ML PLCT IV SCH ×2 (17:59→19:00)
--- NOTE | 2019-07-09 21:57 | Emergency Department Note ---
Entered by Neha Murray acting as a scribe for Huber Mchugh MD History of Present Illness General Chief complaint: Confusion Time Seen by Provider: 07/09/19 15:21 Source: patient History of Present Illness Provider complaint: confusion Onset (ago): week(s) (2.5) Pain Consistency: + other (episode) Quality: + other (confusion) Associated symptoms: + denies other symptoms (pain, trauma) and + other ("wants to be left alone to ," refusing food and medication, combative, throwing thing at staff workers) Treatments prior to arrival: none The patient is an 84 year old female who presents to the ED with complaints of an episode of confusion that began 2.5 weeks ago. Per EMS, the patient has been refusing food and medications during this time. EMS states that she is becoming combative and throwing things at staff workers in the alf. Per EMS, the patient states that she wants to be left alone to . The patient notes that she is in no significant pain and denies trauma. Per EMS, the patient has not had any treatments prior to arrival. Home Medications Home Medications Medication Instructions Recorded Confirmed Type albuterol sulfate [Ventolin HFA] 2 puff INHALATION Q6 PRN 11/15/18 07/09/19 History cholecalciferol (vitamin D3) 2,000 unit PO .DAILY@NOON 11/15/18 07/09/19 History [Vitamin D3] docusate sodium [Colace] 100 mg PO BID PRN 11/15/18 07/09/19 History ethambutol [Myambutol] 800 mg PO 3XWK 11/15/18 07/09/19 History levothyroxine [Synthroid] 75 mcg PO QAM 11/15/18 07/09/19 History donepezil 10 mg PO QAM 03/01/19 07/09/19 History acetaminophen 500 mg tablet 500 mg PO Q4H PRN tab 06/13/19 07/09/19 History aspirin 325 mg tablet 325 mg PO .DAILY@NOON #1 tab 06/13/19 07/09/19 History Allergies Allergy/AdvReac Type Severity Reaction Status Date / Time morphine AdvReac Intermediate VOMITING Verified 07/09/19 17:45 codeine AdvReac Mild HALLUCINATI Verified 07/09/19 17:45 ONS Past Med/Surg History Social History Preferred Language: Malay Communication Ability: Effective Election Watcher Required: No Beliefs That Will Affect Care: None marital status: / Current Living Situation: Alone and Personal Care Facility Current Living Situation Comment: lives at [facility] current occupational status: retired Feels Safe at Home: Yes Safety Concerns: Feels Safe At This Time Smoking Status: Former smoker Second Hand Exposure: No ; Hx Alcohol Use: No Hx Substance Use: No Review of Systems See HPI for pertinent positives & negatives. and A total of 10 systems reviewed and were otherwise negative Physical Exam Vital Signs Vital Signs - 24 hr 07/09/19 22:00 07/09/19 22:43 07/10/19 00:15 Temperature 36.5 C Temperature Source Oral Pulse Rate 65 Pulse Rate [Left Finger] Pulse Rate [Right Radial] 73 Pulse Rate from SpO2 Sensor 67 Pulse Rhythm [Right Radial] Regular Pulse Strength [Right Radial] Normal Respiratory Rate 19 14 Respiratory Effort / Characteristics Non-Labored Spontaneous Non-Labored Spontaneous Respiratory Depth Normal Normal Respiratory Pattern Regular Blood Pressure 120/56 L Blood Pressure [Left Arm] Blood Pressure [Right Arm] 132/69 Blood Pressure Mean 77 Blood Pressure Mean [Left Arm] Blood Pressure Mean [Right Arm] 90 Blood Pressure Position [Left Arm] Blood Pressure Position [Right Arm] Lying Pulse Oximetry 100 100 Oxygen Delivery Method Nasal Cannula Nasal Cannula Nasal Cannula Oxygen Flow Rate 2 2 3 07/10/19 07:15 07/10/19 16:00 07/10/19 16:05 Temperature 36.4 C L 36.5 C Temperature Source Oral Oral Pulse Rate Pulse Rate [Left Finger] 72 76 Pulse Rate [Right Radial] Pulse Rate from SpO2 Sensor Pulse Rhythm [Right Radial] Pulse Strength [Right Radial] Respiratory Rate 15 20 Respiratory Effort / Characteristics Non-Labored Spontaneous Respiratory Depth Normal Respiratory Pattern Regular Blood Pressure Blood Pressure [Left Arm] 131/73 148/80 H Blood Pressure [Right Arm] Blood Pressure Mean Blood Pressure Mean [Left Arm] 92 102 Blood Pressure Mean [Right Arm] Blood Pressure Position [Left Arm] Lying Lying Blood Pressure Position [Right Arm] Pulse Oximetry 100 100 Oxygen Delivery Method Nasal Cannula Nasal Cannula Nasal Cannula Oxygen Flow Rate 3.0 3 4 GENERAL: Awake, alert, well-appearing, in no acute distress HENT: Normocephalic, atraumatic. Oropharynx unremarkable. EYES: Normal conjunctiva. Sclera non-icteric. NECK: Supple. No nuchal rigidity. FROM. No JVD. RESPIRATORY: Slight wheezing bilaterally. CARDIAC: Regular rate, normal rhythm. Extremities warm and well perfused. Pulses equal. ABDOMEN: Soft, non-distended. No tenderness to palpation. No rebound or guarding. No masses. RECTAL: Deferred. MUSCULOSKELETAL: Chest examination reveals no tenderness. The back is symmetrical on inspection without obvious abnormality. There is no CVA tenderness to palpation. No joint edema. LOWER EXTREMITIES: Calves are equal size bilaterally and non-tender. No edema. No discoloration. NEURO: Normal sensorium. No sensory or motor deficits noted. SKIN: No rash or jaundice noted. Course 1526: Past medical records reviewed. The patient was evaluated in room A4. A complete history and physical exam was performed. 1548: I discussed inpatient treatment options with the patient's [id number], who I was informed was the power of ip technology transactions attorney. She informed me that the patient's son is her power of ip technology transactions attorney but he is currently out of town. 1635: I reevaluated the patient and she is doing okay. 1725: I reevaluated the patient and she is agreeable for admission. 1909: I discussed the patient's case with Dr. Alonzo [facility] Hospitalist. She will evaluate the patient for further management. Consultations Consultation #1: I discussed the patient's case with Dr. Alonzo [facility] Hospitalist. She will evaluate the patient for further management. Time: 19:09 Administered Medications Aspirin (Ecotrin) 325 mg PO 1200 [facility] Stop: 08/09/19 11:59 Last Admin: 07/10/19 13:09 Dose: Not Given Documented by: [id number] Donepezil HCl (Aricept) 10 mg PO QAM JAM Stop: 08/09/19 08:59 Last Admin: 07/10/19 08:10 Dose: 10 mg Documented by: [id number] Enoxaparin Sodium (Lovenox) 30 mg SQ Q24H JAM Stop: 08/09/19 07:59 Last Admin: 07/10/19 08:08 Dose: Not Given Documented by: [id number] Levothyroxine Sodium (Synthroid) 75 mcg PO DAILYBB JAM Stop: 08/09/19 06:29 Last Admin: 07/10/19 05:41 Dose: 75 mcg Documented by: [id number] Vitamin D (Vitamin D3) 2,000 units PO 1200 JAM Stop: 08/09/19 11:59 Last Admin: 07/10/19 13:09 Dose: Not Given Documented by: [id number] Discontinued Medications Sodium Chloride (Nss) 500 mls @ 999 mls/hr IV .Q31M JAM Stop: 07/09/19 16:15 Last Infusion: 07/09/19 16:23 Dose: 0 mls/hr Documented by: [id number] Admin: 07/09/19 15:52 Dose: 999 mls/hr Documented by: [id number] Potassium Chloride (K Isaac / Wtr) 10 meq in 100 mls @ 100 mls/hr IV Q1H JAM Stop: 07/09/19 18:59 Last Infusion: 07/09/19 20:00 Dose: 0 mls/hr Documented by: [id number] Admin: 07/09/19 19:00 Dose: 100 mls/hr Documented by: [id number] Infusion: 07/09/19 18:59 Dose: 0 mls/hr Documented by: [id number] Admin: 07/09/19 17:59 Dose: 100 mls/hr Documented by: [id number] Ceftriaxone Sodium (Rocephin) 2,000 mg in 70 mls @ 140 mls/hr IV NOW STA Stop: 07/09/19 17:25 Last Infusion: 07/09/19 17:45 Dose: 0 mls/hr Documented by: [id number] Admin: 07/09/19 17:15 Dose: 140 mls/hr Documented by: [id number] Sodium Chloride (Nss 1000ml) 500 mls @ 999 mls/hr IV .Q31M ONE Stop: 07/09/19 17:26 Last Infusion: 07/09/19 17:30 Dose: 0 mls/hr Documented by: [id number] Admin: 07/09/19 16:59 Dose: 999 mls/hr Documented by: [id number] Lorazepam (Ativan) 1 mg in 2 mls @ 2 mls/min IV NOW STA Stop: 07/09/19 17:35 Last Admin: 07/09/19 17:59 Dose: 2 mls/min Documented by: [id number] Lactated Ringer's (Lr) 1,000 mls @ 75 mls/hr IV .[id number] JAM Stop: 07/10/19 11:53 Last Infusion: 07/10/19 08:00 Dose: 0 mls/hr Documented by: [id number] Admin: 07/09/19 22:48 Dose: 75 mls/hr Documented by: [id number] Potassium Chloride (Klor-Con M20) 40 meq PO NOW STA Stop: 07/09/19 16:02 Last Admin: 07/09/19 16:35 Dose: Not Given Documented by: [id number] Potassium Chloride (Klor-Con M20) 40 meq PO NOW STA Stop: 07/09/19 16:50 Last Admin: 07/09/19 16:56 Dose: Not Given Documented by: [id number] Medical Decision Making Differential Diagnosis Differential diagnoses includes but is not limited to toxic, metabolic, infectious, traumatic, cardiac, neurologic, hematologic, psychiatric and inflammatory etiologies. Medical Records Attestation: I reviewed the patient's medical records. Home Medications Current Medication List: was personally reviewed by me Laboratory Data Attestation: I reviewed the patient's lab results. Result diagrams: 07/10/19 07:24 07/10/19 07:24 Lab Results 07/09/19 07/09/19 07/09/19 Range/Units 15:46 15:46 15:58 WBC 4.24 L (4.8-10.8) K/uL RBC 4.55 (4.2-5.4) M/uL Hgb 12.4 (12.0-16.0) g/dL Hct 38.8 (37-47) % MCV 85.3 (80-100) fL MCH 27.3 (25-34) pg MCHC 32.0 (32-36) g/dL RDW Std Deviation 45.0 (36.4-46.3) fL RDW Coeff of Chadd 14.4 (11.5-14.5) % Plt Count 279 (130-400) K/uL MPV 9.8 (7.4-10.4) fL Immature Gran % (Auto) 0.2 % Neut % (Auto) 58.9 % Lymph % (Auto) 28.8 % [facility] % (Auto) 10.4 % Eos % (Auto) 1.2 % Baso % (Auto) 0.5 % Immature Gran # (Auto) 0.01 (0.00-0.02) K/uL Neut # (Auto) 2.50 (1.4-6.5) K/uL Lymph # (Auto) 1.22 (1.2-3.4) K/uL [facility] # (Auto) 0.44 (0.11-0.59) K/uL Eos # (Auto) 0.05 (0-0.5) K/uL Baso # (Auto) 0.02 (0-0.2) K/uL PT (9.0-12.0) Seconds INR (0.9-1.1) VBG pH (7.36-7.41) VBG pCO2 (38-50) mmHg VBG pO2 mmHg VBG HCO3 mmol/L VBG O2 Saturation % VBG Base Excess mEq/L Sodium 142 (136-145) mmol/L Potassium 3.2 L (3.5-5.1) mmol/L Chloride 104 (98-107) mmol/L Carbon Dioxide 33 H (21-32) mmol/L Anion Gap 6.0 (3-11) BUN 20 H (7-18) mg/dl Creatinine 0.57 L (0.6-1.2) mg/dl Est Cr Clr Drug Dosing 46.1 ml/min Est GFR ( Amer) 98.0 Est GFR (Non-Af Amer) 84.5 BUN/Creatinine Ratio 34.6 H (10-20) Glucose 90 (70-99) mg/dl POC Glucose 83 (70-99) Lactate (0.4-2.0) mmol/L Calcium 8.4 L (8.5-10.1) mg/dl Phosphorus (2.5-4.9) mg/dl Magnesium (1.8-2.4) mg/dl Total Bilirubin 0.3 (0.2-1) mg/dl AST 22 (15-37) U/L ALT 12 (12-78) U/L Alkaline Phosphatase 70 (45-117) U/L Total Creatine Kinase 58 (26-192) U/L Troponin I < 0.015 (0-0.045) ng/ml Total Protein 6.5 (6.4-8.2) gm/dl Albumin 3.1 L (3.4-5.0) gm/dl Globulin 3.4 (2.5-4.0) gm/dl Albumin/Globulin Ratio 0.9 (0.9-2) TSH 0.756 (0.300-4.500) uIu/ml Urine Color Urine Appearance (Clear) Urine pH (4.5-7.5) Ur Specific [place] (1.000-1.030) Urine Protein (Negative) Urine Glucose (UA) (Negative) Urine Ketones (Negative) Urine Blood (Negative) Urine Nitrite (Negative) Urine Bilirubin (Negative) Urine Urobilinogen (Negative) Ur Leukocyte Esterase (Negative) Urine WBC (Auto) (0-5) /hpf Urine RBC (Auto) (0-4) /hpf U Hyaline Cast (Auto) (0-5) /lpf U Epithel Cells (Auto) (0-5) /lpf Urine Bacteria (Auto) (Negative) 07/09/19 07/09/19 07/09/19 Range/Units 16:45 22:57 22:57 WBC (4.8-10.8) K/uL RBC (4.2-5.4) M/uL Hgb (12.0-16.0) g/dL Hct (37-47) % MCV (80-100) fL MCH (25-34) pg MCHC (32-36) g/dL RDW Std Deviation (36.4-46.3) fL RDW Coeff of Chadd (11.5-14.5) % Plt Count (130-400) K/uL MPV (7.4-10.4) fL Immature Gran % (Auto) % Neut % (Auto) % Lymph % (Auto) % [facility] % (Auto) % Eos % (Auto) % Baso % (Auto) % Immature Gran # (Auto) (0.00-0.02) K/uL Neut # (Auto) (1.4-6.5) K/uL Lymph # (Auto) (1.2-3.4) K/uL [facility] # (Auto) (0.11-0.59) K/uL Eos # (Auto) (0-0.5) K/uL Baso # (Auto) (0-0.2) K/uL PT (9.0-12.0) Seconds INR (0.9-1.1) VBG pH (7.36-7.41) VBG pCO2 (38-50) mmHg VBG pO2 mmHg VBG HCO3 mmol/L VBG O2 Saturation % VBG Base Excess mEq/L Sodium (136-145) mmol/L Potassium (3.5-5.1) mmol/L Chloride (98-107) mmol/L Carbon Dioxide (21-32) mmol/L Anion Gap (3-11) BUN (7-18) mg/dl Creatinine (0.6-1.2) mg/dl Est Cr Clr Drug Dosing ml/min Est GFR ( Amer) Est GFR (Non-Af Amer) BUN/Creatinine Ratio (10-20) Glucose (70-99) mg/dl POC Glucose (70-99) Lactate 0.9 (0.4-2.0) mmol/L Calcium (8.5-10.1) mg/dl Phosphorus 2.8 (2.5-4.9) mg/dl Magnesium 1.8 (1.8-2.4) mg/dl Total Bilirubin (0.2-1) mg/dl AST (15-37) U/L ALT (12-78) U/L Alkaline Phosphatase (45-117) U/L Total Creatine Kinase (26-192) U/L Troponin I (0-0.045) ng/ml Total Protein (6.4-8.2) gm/dl Albumin (3.4-5.0) gm/dl Globulin (2.5-4.0) gm/dl Albumin/Globulin Ratio (0.9-2) TSH (0.300-4.500) uIu/ml Urine Color Yellow Urine Appearance Clear (Clear) Urine pH 5.5 (4.5-7.5) Ur Specific [place] 1.016 (1.000-1.030) Urine Protein Negative (Negative) Urine Glucose (UA) Negative (Negative) Urine Ketones Negative (Negative) Urine Blood 1+ H (Negative) Urine Nitrite Negative (Negative) Urine Bilirubin Negative (Negative) Urine Urobilinogen Negative (Negative) Ur Leukocyte Esterase Negative (Negative) Urine WBC (Auto) 1-5 (0-5) /hpf Urine RBC (Auto) 5-10 H (0-4) /hpf U Hyaline Cast (Auto) 1-5 (0-5) /lpf U Epithel Cells (Auto) 0-5 (0-5) /lpf Urine Bacteria (Auto) Negative (Negative) 07/09/19 07/09/19 07/10/19 Range/Units 22:57 22:57 07:24 WBC 4.87 (4.8-10.8) K/uL RBC 4.31 (4.2-5.4) M/uL Hgb 11.8 L (12.0-16.0) g/dL Hct 37.0 (37-47) % MCV 85.8 (80-100) fL MCH 27.4 (25-34) pg MCHC 31.9 L (32-36) g/dL RDW Std Deviation 45.5 (36.4-46.3) fL RDW Coeff of Chadd 14.4 (11.5-14.5) % Plt Count 291 (130-400) K/uL MPV 9.9 (7.4-10.4) fL Immature Gran % (Auto) 0.2 % Neut % (Auto) 59.1 % Lymph % (Auto) 27.3 % [facility] % (Auto) 10.3 % Eos % (Auto) 2.5 % Baso % (Auto) 0.6 % Immature Gran # (Auto) 0.01 (0.00-0.02) K/uL Neut # (Auto) 2.88 (1.4-6.5) K/uL Lymph # (Auto) 1.33 (1.2-3.4) K/uL [facility] # (Auto) 0.50 (0.11-0.59) K/uL Eos # (Auto) 0.12 (0-0.5) K/uL Baso # (Auto) 0.03 (0-0.2) K/uL PT 11.4 (9.0-12.0) Seconds INR 1.1 (0.9-1.1) VBG pH 7.31 L (7.36-7.41) VBG pCO2 66 H (38-50) mmHg VBG pO2 34 mmHg VBG HCO3 32 mmol/L VBG O2 Saturation 60.6 % VBG Base Excess 3.6 mEq/L Sodium (136-145) mmol/L Potassium (3.5-5.1) mmol/L Chloride (98-107) mmol/L Carbon Dioxide (21-32) mmol/L Anion Gap (3-11) BUN (7-18) mg/dl Creatinine (0.6-1.2) mg/dl Est Cr Clr Drug Dosing ml/min Est GFR ( Amer) Est GFR (Non-Af Amer) BUN/Creatinine Ratio (10-20) Glucose (70-99) mg/dl POC Glucose (70-99) Lactate (0.4-2.0) mmol/L Calcium (8.5-10.1) mg/dl Phosphorus (2.5-4.9) mg/dl Magnesium (1.8-2.4) mg/dl Total Bilirubin (0.2-1) mg/dl AST (15-37) U/L ALT (12-78) U/L Alkaline Phosphatase (45-117) U/L Total Creatine Kinase (26-192) U/L Troponin I (0-0.045) ng/ml Total Protein (6.4-8.2) gm/dl Albumin (3.4-5.0) gm/dl Globulin (2.5-4.0) gm/dl Albumin/Globulin Ratio (0.9-2) TSH (0.300-4.500) uIu/ml Urine Color Urine Appearance (Clear) Urine pH (4.5-7.5) Ur Specific [place] (1.000-1.030) Urine Protein (Negative) Urine Glucose (UA) (Negative) Urine Ketones (Negative) Urine Blood (Negative) Urine Nitrite (Negative) Urine Bilirubin (Negative) Urine Urobilinogen (Negative) Ur Leukocyte Esterase (Negative) Urine WBC (Auto) (0-5) /hpf Urine RBC (Auto) (0-4) /hpf U Hyaline Cast (Auto) (0-5) /lpf U Epithel Cells (Auto) (0-5) /lpf Urine Bacteria (Auto) (Negative) 07/10/19 Range/Units 07:24 WBC (4.8-10.8) K/uL RBC (4.2-5.4) M/uL Hgb (12.0-16.0) g/dL Hct (37-47) % MCV (80-100) fL MCH (25-34) pg MCHC (32-36) g/dL RDW Std Deviation (36.4-46.3) fL RDW Coeff of Chadd (11.5-14.5) % Plt Count (130-400) K/uL MPV (7.4-10.4) fL Immature Gran % (Auto) % Neut % (Auto) % Lymph % (Auto) % [facility] % (Auto) % Eos % (Auto) % Baso % (Auto) % Immature Gran # (Auto) (0.00-0.02) K/uL Neut # (Auto) (1.4-6.5) K/uL Lymph # (Auto) (1.2-3.4) K/uL [facility] # (Auto) (0.11-0.59) K/uL Eos # (Auto) (0-0.5) K/uL Baso # (Auto) (0-0.2) K/uL PT (9.0-12.0) Seconds INR (0.9-1.1) VBG pH (7.36-7.41) VBG pCO2 (38-50) mmHg VBG pO2 mmHg VBG HCO3 mmol/L VBG O2 Saturation % VBG Base Excess mEq/L Sodium 144 (136-145) mmol/L Potassium 3.5 (3.5-5.1) mmol/L Chloride 109 H (98-107) mmol/L Carbon Dioxide 29 (21-32) mmol/L Anion Gap 6.0 (3-11) BUN 11 (7-18) mg/dl Creatinine 0.46 L (0.6-1.2) mg/dl Est Cr Clr Drug Dosing 57.2 ml/min Est GFR ( Amer) 105.1 Est GFR (Non-Af Amer) 90.7 BUN/Creatinine Ratio 24.6 H (10-20) Glucose 84 (70-99) mg/dl POC Glucose (70-99) Lactate (0.4-2.0) mmol/L Calcium 8.6 (8.5-10.1) mg/dl Phosphorus (2.5-4.9) mg/dl Magnesium (1.8-2.4) mg/dl Total Bilirubin (0.2-1) mg/dl AST (15-37) U/L ALT (12-78) U/L Alkaline Phosphatase (45-117) U/L Total Creatine Kinase (26-192) U/L Troponin I (0-0.045) ng/ml Total Protein (6.4-8.2) gm/dl Albumin (3.4-5.0) gm/dl Globulin (2.5-4.0) gm/dl Albumin/Globulin Ratio (0.9-2) TSH (0.300-4.500) uIu/ml Urine Color Urine Appearance (Clear) Urine pH (4.5-7.5) Ur Specific [place] (1.000-1.030) Urine Protein (Negative) Urine Glucose (UA) (Negative) Urine Ketones (Negative) Urine Blood (Negative) Urine Nitrite (Negative) Urine Bilirubin (Negative) Urine Urobilinogen (Negative) Ur Leukocyte Esterase (Negative) Urine WBC (Auto) (0-5) /hpf Urine RBC (Auto) (0-4) /hpf U Hyaline Cast (Auto) (0-5) /lpf U Epithel Cells (Auto) (0-5) /lpf Urine Bacteria (Auto) (Negative) Imaging Data Radiologist's Impression: Radiology results as stated below per my review and the radiologist's interpretation: XR chest 1V portable CLINICAL HISTORY: weakness dyspnea COMPARISON STUDY: 03/01/2019 FINDINGS: Diffuse 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 Left apical bleb-like changes unaltered. Chronic pleural thickening over the pulmonary apices considered chronic. IMPRESSION: Chronic and emphysematous change. No acute process. The above report was generated using voice recognition software. It may contain grammatical, syntax or spelling errors. Electronically signed by: Dago Franklin M.D. 07/09/2019 3:[address] head/brain wo con CT DOSE: 690.05 mGycm HISTORY: Mental status change pt c/o ams TECHNIQUE: Multiaxial CT images of the head were performed without the use of intravenous contrast. A dose lowering technique was utilized adhering to the principles of ALARA. Comparison: 03/04/2019 Findings: The paranasal sinuses and mastoid air cells are clear. The calvarium and skull base are intact. The ventricles and sulci are within normal limits. There is no mass, hematoma, midline shift, or acute infarct. Significant chronic small vessel changes throughout both cerebral hemispheres. This is unchanged fro m the prior study. Impression: No acute intracranial abnormality. Chronic small vessel change. The above report was generated using voice recognition software. It may contain grammatical, syntax or spelling errors. Electronically signed by: Dago Franklin M.D. 07/09/2019 4:17 PM ECG Data Attestation: I personally reviewed and interpreted this ECG as follows: Indication: altered mental status Rate (beats per minute): 69 Rhythm: normal sinus Findings: no ST depression and no ST elevation Blood Pressure Blood Pressure Findings: Elevated blood pressure Blood Pressure Disposition: further management by hospitalist MDM Narrative This is an 84-year-old female who arrives from her alf over concerns about altered mental status. The patient is combative with alf staff. Upon arrival to the emergency department the patient is cooperative and did agree to laboratory work. There is a report from EMS as well as the alf but stated that the patient's son was her power of ip technology transactions attorney however that he . Of the patient's [id number] it turns out that the son is alive and is not her power of ip technology transactions attorney. The family however is requesting that the patient be admitted. I did discuss this with the patient who agreed to. She was given Ativan here in the emergency department. She was treated for urinary tract infection with Rocephin and given fluids. Patient refused oral potassium however was given IV potassium. I did discuss the case with the hospitalist service who agreed to admit the patient. Patient family were in agreement with the treatment plan. Impression & Plan Altered mental status, Electrolyte abnormality, Acute UTI Discharge Plan Visit Data *Final* Discharge Date/Time: 07/09/19 22:25 Chief Complaint: Confusion ED Provider: Huber Mchugh Discharge Problem: Altered mental status, Electrolyte abnormality, Acute UTI Patient Disposition: Admitted As Inpatient Discharge Instructions Interventions: ED Discharge Assessment Last Done: 07/09/19 22:25 Discharge Problem: Altered mental status Qualifiers: Altered mental status type: unspecified Qualified Code(s): R41.82 - Altered mental status, unspecified The scribe's documentation has been prepared under my direction and personally reviewed by me in its entirety. I confirm that the note above accurately reflects all work, treatment, procedures, and medical decision making performed by me.
[2019-07-09] MEDS ORDERED: ACETAMINOPHEN 500 MG TAB PO PRN (22:34)
[2019-07-09] MEDS ORDERED: DOCUSATE SODIUM 100 MG CAP PO PRN (22:34)
[2019-07-09] MEDS ORDERED: ALBUTEROL HFA 8 GM INHALER INH PRN (22:34)
[2019-07-09] MEDS ORDERED: LACTATED RINGER'S 1,000 ML IV SCH (22:34)
[2019-07-09 23:07] LABS: Base Excess VBG 3.6 mEq/L; HCO3 VBG 32 mmol/L; Oxygen Saturation VBG 60.6 %; PCO2 VBG 66 mmHg (38-50); PO2 VBG 34 mmHg; pH VBG 7.31 (7.36-7.41)
--- NOTE | 2019-07-09 23:13 | History & Physical Report ---
Date of Service July 09, 2019 Assessment & Plan (1) Altered mental status: Reported 2.5 weeks of AMS, combativeness and overall functional decline, refusing food/meds, etc. Workup thus far with normal electrolytes aside from mild hypokalemia, CT head. UA with small amount of hematuria but does not appear to be infectious/inflammatory. VBG with acute respiratory acidosis. Patient with history of chronic respiratory failure, emphysema noted on CXR, labs suggest some degree of chronic CO2 retention with renal compensation. -Observation to medical floor -Delirium prevention strategies -Optimize electrolytes -Gentle IVF -Trial of BiPAP -Haldol PRN agitation competitive with care Present on Admission?: Yes (2) Chronic respiratory failure: BiPAP as above for acute on chronic respiratory failrue -Continue Albuterol PRN Present on Admission?: Yes (3) Hypothyroidism: TSH within normal range -Continue Synthroid at home dose Present on Admission?: Yes (4) Dementia: Patient with underlying dementia. 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 Patient unable to provide much history. Family not at bedside during my encounter. History obtained through record review and discussion with ER staff. Patient was brought in with complaint of confusion starting approximately 2.5 weeks ago. Patient has been refusing food and medication as well as acting combative toward staff. Patient reports that she "wants to be left alone to ". Patient states that she is not in any pain. She is able to state her name and say that she is in the hospital. Follows most commands but is overall uncooperative with exam. ER Course: Ceftriaxone, Ativan, KCL, NSS Allergies Allergy/AdvReac Type Severity Reaction Status Date / Time morphine AdvReac Intermediate VOMITING Verified 07/09/19 17:45 codeine AdvReac Mild HALLUCINATI Verified 07/09/19 17:45 ONS Home Medications Home Medications Medication Instructions Recorded Confirmed Type albuterol sulfate [Ventolin HFA] 2 puff INHALATION Q6 PRN 11/15/18 07/09/19 History cholecalciferol (vitamin D3) 2,000 unit PO .DAILY@NOON 11/15/18 07/09/19 History [Vitamin D3] docusate sodium [Colace] 100 mg PO BID PRN 11/15/18 07/09/19 History ethambutol [Myambutol] 800 mg PO 3XWK 11/15/18 07/09/19 History levothyroxine [Synthroid] 75 mcg PO QAM 11/15/18 07/09/19 History donepezil 10 mg PO QAM 03/01/19 07/09/19 History acetaminophen 500 mg tablet 500 mg PO Q4H PRN tab 06/13/19 07/09/19 History aspirin 325 mg tablet 325 mg PO .DAILY@NOON #1 tab 06/13/19 07/09/19 History Past Med/Surg History Social History Preferred Language: Khmer Communication Ability: Effective Rfid Manager Required: No Beliefs That Will Affect Care: None marital status: / Current Living Situation: Alone and Personal Care Facility Current Living Situation Comment: lives at [facility] current occupational status: retired Feels Safe at Home: Yes Smoking Status: Never smoker Second Hand Exposure: No ; Hx Alcohol Use: No Hx Substance Use: No Review of Systems Review of Systems: Unobtainable due to cognitive status patient denies pain Physical Exam Physical Exam: General: patient resting comfortably, wakes to light touch then falls back asleep, NAD, frail/cachectic elderly female, non-toxic in appearance, oriented to self and location. Skin: thin, warm, dry, intact, no rashes or lesions HEENT: NC/AT, PERRL, anicteric sclera, conjunctiva without injection, external ear normal to inspection and nontender, nares patent, dry mucus membranes, dentures in place, no oropharyngeal lesions, neck supple, trachea midline, no LAD, no thyromegaly, no JVD Heart: +S1/S2, regular, no m/r/g Lungs: equal air entry bilaterally, no rales/rhonchi/wheezes, poor effort Abd: +BS, soft, NT/ND, no masses/organomegaly/ascites Ext: warm, 2+ pulses in UE/LE bilaterally, no clubbing/cyanosis or edema Neuro: nonfocal, patient AA&O x 2, speech intact, no facial droop, moving all extremities on command with equal strength 5/5, disgruntled during exam Results & Data Vital Signs (Past 12 Hours) Vital Signs Temp Pulse Pulse Resp BP BP Pulse Ox 07/09/19 22:43 36.5 C 73 14 132/69 100 07/09/19 22:00 65 19 120/56 L 100 07/09/19 21:30 67 19 103/52 L 100 07/09/19 21:01 66 18 146/49 H 100 07/09/19 21:00 68 18 100 07/09/19 20:30 69 19 107/50 L 100 07/09/19 20:00 67 21 160/71 H 100 07/09/19 19:30 67 19 120/59 L 100 07/09/19 19:00 69 20 146/65 H 100 07/09/19 18:30 81 26 H 146/87 H 99 07/09/19 18:00 76 22 98 07/09/19 17:30 71 21 160/107 H 100 07/09/19 17:00 76 26 H 168/81 H 100 07/09/19 16:30 78 26 H 07/09/19 16:00 80 30 H 118/87 100 07/09/19 15:52 70 24 100 07/09/19 15:49 70 28 H 146/69 H 100 07/09/19 15:40 100 07/09/19 15:25 36.4 C L 73 20 138/59 L 100 Laboratory Results Lab Results 07/09/19 07/09/19 07/09/19 Range/Units 15:46 15:46 15:58 WBC 4.24 L (4.8-10.8) K/uL RBC 4.55 (4.2-5.4) M/uL Hgb 12.4 (12.0-16.0) g/dL Hct 38.8 (37-47) % MCV 85.3 (80-100) fL MCH 27.3 (25-34) pg MCHC 32.0 (32-36) g/dL RDW Std Deviation 45.0 (36.4-46.3) fL RDW Coeff of Chadd 14.4 (11.5-14.5) % Plt Count 279 (130-400) K/uL MPV 9.8 (7.4-10.4) fL Immature Gran % (Auto) 0.2 % Neut % (Auto) 58.9 % Lymph % (Auto) 28.8 % Carson % (Auto) 10.4 % Eos % (Auto) 1.2 % Baso % (Auto) 0.5 % Immature Gran # (Auto) 0.01 (0.00-0.02) K/uL Neut # (Auto) 2.50 (1.4-6.5) K/uL Lymph # (Auto) 1.22 (1.2-3.4) K/uL Carson # (Auto) 0.44 (0.11-0.59) K/uL Eos # (Auto) 0.05 (0-0.5) K/uL Baso # (Auto) 0.02 (0-0.2) K/uL PT (9.0-12.0) Seconds INR (0.9-1.1) VBG pH (7.36-7.41) VBG pCO2 (38-50) mmHg VBG pO2 mmHg VBG HCO3 mmol/L VBG O2 Saturation % VBG Base Excess mEq/L Sodium 142 (136-145) mmol/L Potassium 3.2 L (3.5-5.1) mmol/L Chloride 104 (98-107) mmol/L Carbon Dioxide 33 H (21-32) mmol/L Anion Gap 6.0 (3-11) BUN 20 H (7-18) mg/dl Creatinine 0.57 L (0.6-1.2) mg/dl Est Cr Clr Drug Dosing 46.1 ml/min Est GFR ( Amer) 98.0 Est GFR (Non-Af Amer) 84.5 BUN/Creatinine Ratio 34.6 H (10-20) Glucose 90 (70-99) mg/dl POC Glucose 83 (70-99) Lactate (0.4-2.0) mmol/L Calcium 8.4 L (8.5-10.1) mg/dl Phosphorus (2.5-4.9) mg/dl Magnesium (1.8-2.4) mg/dl Total Bilirubin 0.3 (0.2-1) mg/dl AST 22 (15-37) U/L ALT 12 (12-78) U/L Alkaline Phosphatase 70 (45-117) U/L Total Creatine Kinase 58 (26-192) U/L Troponin I < 0.015 (0-0.045) ng/ml Total Protein 6.5 (6.4-8.2) gm/dl Albumin 3.1 L (3.4-5.0) gm/dl Globulin 3.4 (2.5-4.0) gm/dl Albumin/Globulin Ratio 0.9 (0.9-2) TSH 0.756 (0.300-4.500) uIu/ml Urine Color Urine Appearance (Clear) Urine pH (4.5-7.5) Ur Specific Gary (1.000-1.030) Urine Protein (Negative) Urine Glucose (UA) (Negative) Urine Ketones (Negative) Urine Blood (Negative) Urine Nitrite (Negative) Urine Bilirubin (Negative) Urine Urobilinogen (Negative) Ur Leukocyte Esterase (Negative) Urine WBC (Auto) (0-5) /hpf Urine RBC (Auto) (0-4) /hpf U Hyaline Cast (Auto) (0-5) /lpf U Epithel Cells (Auto) (0-5) /lpf Urine Bacteria (Auto) (Negative) 07/09/19 07/09/19 07/09/19 Range/Units 16:45 22:57 22:57 WBC (4.8-10.8) K/uL RBC (4.2-5.4) M/uL Hgb (12.0-16.0) g/dL Hct (37-47) % MCV (80-100) fL MCH (25-34) pg MCHC (32-36) g/dL RDW Std Deviation (36.4-46.3) fL RDW Coeff of Chadd (11.5-14.5) % Plt Count (130-400) K/uL MPV (7.4-10.4) fL Immature Gran % (Auto) % Neut % (Auto) % Lymph % (Auto) % Carson % (Auto) % Eos % (Auto) % Baso % (Auto) % Immature Gran # (Auto) (0.00-0.02) K/uL Neut # (Auto) (1.4-6.5) K/uL Lymph # (Auto) (1.2-3.4) K/uL Carson # (Auto) (0.11-0.59) K/uL Eos # (Auto) (0-0.5) K/uL Baso # (Auto) (0-0.2) K/uL PT (9.0-12.0) Seconds INR (0.9-1.1) VBG pH (7.36-7.41) VBG pCO2 (38-50) mmHg VBG pO2 mmHg VBG HCO3 mmol/L VBG O2 Saturation % VBG Base Excess mEq/L Sodium (136-145) mmol/L Potassium (3.5-5.1) mmol/L Chloride (98-107) mmol/L Carbon Dioxide (21-32) mmol/L Anion Gap (3-11) BUN (7-18) mg/dl Creatinine (0.6-1.2) mg/dl Est Cr Clr Drug Dosing ml/min Est GFR ( Amer) Est GFR (Non-Af Amer) BUN/Creatinine Ratio (10-20) Glucose (70-99) mg/dl POC Glucose (70-99) Lactate 0.9 (0.4-2.0) mmol/L Calcium (8.5-10.1) mg/dl Phosphorus 2.8 (2.5-4.9) mg/dl Magnesium 1.8 (1.8-2.4) mg/dl Total Bilirubin (0.2-1) mg/dl AST (15-37) U/L ALT (12-78) U/L Alkaline Phosphatase (45-117) U/L Total Creatine Kinase (26-192) U/L Troponin I (0-0.045) ng/ml Total Protein (6.4-8.2) gm/dl Albumin (3.4-5.0) gm/dl Globulin (2.5-4.0) gm/dl Albumin/Globulin Ratio (0.9-2) TSH (0.300-4.500) uIu/ml Urine Color Yellow Urine Appearance Clear (Clear) Urine pH 5.5 (4.5-7.5) Ur Specific Gary 1.016 (1.000-1.030) Urine Protein Negative (Negative) Urine Glucose (UA) Negative (Negative) Urine Ketones Negative (Negative) Urine Blood 1+ H (Negative) Urine Nitrite Negative (Negative) Urine Bilirubin Negative (Negative) Urine Urobilinogen Negative (Negative) Ur Leukocyte Esterase Negative (Negative) Urine WBC (Auto) 1-5 (0-5) /hpf Urine RBC (Auto) 5-10 H (0-4) /hpf U Hyaline Cast (Auto) 1-5 (0-5) /lpf U Epithel Cells (Auto) 0-5 (0-5) /lpf Urine Bacteria (Auto) Negative (Negative) 07/09/19 07/09/19 Range/Units 22:57 22:57 WBC (4.8-10.8) K/uL RBC (4.2-5.4) M/uL Hgb (12.0-16.0) g/dL Hct (37-47) % MCV (80-100) fL MCH (25-34) pg MCHC (32-36) g/dL RDW Std Deviation (36.4-46.3) fL RDW Coeff of Chadd (11.5-14.5) % Plt Count (130-400) K/uL MPV (7.4-10.4) fL Immature Gran % (Auto) % Neut % (Auto) % Lymph % (Auto) % Carson % (Auto) % Eos % (Auto) % Baso % (Auto) % Immature Gran # (Auto) (0.00-0.02) K/uL Neut # (Auto) (1.4-6.5) K/uL Lymph # (Auto) (1.2-3.4) K/uL Carson # (Auto) (0.11-0.59) K/uL Eos # (Auto) (0-0.5) K/uL Baso # (Auto) (0-0.2) K/uL PT 11.4 (9.0-12.0) Seconds INR 1.1 (0.9-1.1) VBG pH 7.31 L (7.36-7.41) VBG pCO2 66 H (38-50) mmHg VBG pO2 34 mmHg VBG HCO3 32 mmol/L VBG O2 Saturation 60.6 % VBG Base Excess 3.6 mEq/L Sodium (136-145) mmol/L Potassium (3.5-5.1) mmol/L Chloride (98-107) mmol/L Carbon Dioxide (21-32) mmol/L Anion Gap (3-11) BUN (7-18) mg/dl Creatinine (0.6-1.2) mg/dl Est Cr Clr Drug Dosing ml/min Est GFR ( Amer) Est GFR (Non-Af Amer) BUN/Creatinine Ratio (10-20) Glucose (70-99) mg/dl POC Glucose (70-99) Lactate (0.4-2.0) mmol/L Calcium (8.5-10.1) mg/dl Phosphorus (2.5-4.9) mg/dl Magnesium (1.8-2.4) mg/dl Total Bilirubin (0.2-1) mg/dl AST (15-37) U/L ALT (12-78) U/L Alkaline Phosphatase (45-117) U/L Total Creatine Kinase (26-192) U/L Troponin I (0-0.045) ng/ml Total Protein (6.4-8.2) gm/dl Albumin (3.4-5.0) gm/dl Globulin (2.5-4.0) gm/dl Albumin/Globulin Ratio (0.9-2) TSH (0.300-4.500) uIu/ml Urine Color Urine Appearance (Clear) Urine pH (4.5-7.5) Ur Specific Gary (1.000-1.030) Urine Protein (Negative) Urine Glucose (UA) (Negative) Urine Ketones (Negative) Urine Blood (Negative) Urine Nitrite (Negative) Urine Bilirubin (Negative) Urine Urobilinogen (Negative) Ur Leukocyte Esterase (Negative) Urine WBC (Auto) (0-5) /hpf Urine RBC (Auto) (0-4) /hpf U Hyaline Cast (Auto) (0-5) /lpf U Epithel Cells (Auto) (0-5) /lpf Urine Bacteria (Auto) (Negative) Diagnostic Findings Patient: SIOMARA OROZCO Date: 07/09/19 MR#: [id number]: [address] Acct ID:[id number]: Date: 4City Zip: [place] [address] Age: 84Location: ED Sex: F Room/Bed: Att Phy:Diagnosis: confusion [place] Phy: Cesar Gaona [facility] Date: 07/09/19 Fam Phy:Interpreting Phy: Dago Franklin MD Admit Phy: Ordering Phy: Huber Mchugh MD cc: ~ CT head/brain wo con CT DOSE: 690.05 mGycm HISTORY: Mental status change pt c/o ams TECHNIQUE: Multiaxial CT images of the head were performed without the use of intravenous contrast. A dose lowering technique was utilized adhering to the principles of ALARA. Comparison: 03/04/2019 Findings: The paranasal sinuses and mastoid air cells are clear. The calvarium and skull base are intact. The ventricles and sulci are within normal limits. There is no mass, hematoma, midline shift, or acute infarct. Significant chronic small vessel changes throughout both cerebral hemispheres. This is unchanged from the prior study. Impression: No acute intracranial abnormality. Chronic small vessel change. The above report was generated using voice recognition software. It may contain grammatical, syntax or spelling errors. Electronically signed by: Dago Franklin M.D. 07/09/2019 4:17 PM Dictated: 07/09/191615 Transcribed: 07/09/191615 Patient: SIOMARA OROZCO Date: 07/09/19 MR#: [id number]: [address] Acct ID:[id number]: Date: [address] Zip: [place] [address] Age: 84Location: ED Sex: F Room/Bed: Att Phy:Diagnosis: confusion [place] Phy: Cesar Gaona [facility] Date: 07/09/19 Fam Phy:Interpreting Phy: Dago Franklin MD Admit Phy: Ordering Phy: Huber Mchugh MD cc: ~ XR chest 1V portable CLINICAL HISTORY: weakness dyspnea COMPARISON STUDY: 03/01/2019 FINDINGS: Diffuse 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 Left apical bleb-like changes unaltered. Chronic pleural thickening over the pulmonary apices considered chronic. IMPRESSION: Chronic and emphysematous change. No acute process. The above report was generated using voice recognition software. It may contain grammatical, syntax or spelling errors. Electronically signed by: Dago Franklin M.D. 07/09/2019 3:58 PM Dictated: 07/09/19 1556 Transcribed: 07/09/19 1556 ECG Additional Comments: The study shows NSR at 69bpm, normal axis and intervals, no acute ischemic changes. Study unchanged from prior Code Status & VTE Plan Code Status FULL VTE Prophylaxis Plan VTE Prophylaxis will be ordered: Yes PG Care Time/CCT Total # of Minutes Spent Total Time Spent with Patient: Total time spent is greater than 50% in coordination of care (as documented) at patient's floor/unit and/or counseling patient: (1) Altered mental status Altered mental status type: unspecified Qualified Code(s): R41.82 - Altered mental status, unspecified (2) Chronic respiratory failure Respiratory failure complication: hypercapnia Qualified Code(s): J96.12 - Chronic respiratory failure with hypercapnia (3) Hypothyroidism Hypothyroidism type: unspecified Qualified Code(s): E03.9 - Hypothyroidism, unspecified (4) Dementia Dementia type: unspecified type
[2019-07-09 23:16] LABS: INR 1.1 (0.9-1.1); Prothrombin Time 11.4 Seconds (9.0-12.0)
[2019-07-09 23:22] LABS: Magnesium 1.8 mg/dl (1.8-2.4); Phosphorus 2.8 mg/dl (2.5-4.9)
[2019-07-10] MEDS ORDERED: HALOPERIDOL LACTATE 5 MG/ML 1 ML VIAL IM PRN (00:12)
[2019-07-10] MEDS: LEVOTHYROXINE SODIUM 75 MCG TABLET PO SCH (05:41)
[2019-07-10 08:08] LABS: Basophils # (auto) 0.03 K/uL (0-0.2); Basophils % (auto) 0.6 %; Eosinophils # (auto) 0.12 K/uL (0-0.5); Eosinophils % (auto) 2.5 %; Hemoglobin 11.8 g/dL (12.0-16.0); Immature Granulocytes # (auto) 0.01 K/uL (0.00-0.02); Immature Granulocytes % (auto) 0.2 %; Lymphocytes # (auto) 1.33 K/uL (1.2-3.4); Lymphocytes % (auto) 27.3 %; Mean Corpuscular Hemoglobin 27.4 pg (25-34); Mean Corpuscular Hgb Conc 31.9 g/dL (32-36); Mean Corpuscular Volume 85.8 fL (80-100); Mean Platelet Volume 9.9 fL (7.4-10.4); Monocytes % (auto) 10.3 %; Neutrophils # (auto) 2.88 K/uL (1.4-6.5); Neutrophils % (auto) 59.1 %; Platelet Count 291 K/uL (130-400); RDW Coefficient of Variation 14.4 % (11.5-14.5); RDW Standard Deviation 45.5 fL (36.4-46.3); Red Blood Count 4.31 M/uL (4.2-5.4); White Blood Count 4.87 K/uL (4.8-10.8)
[2019-07-10] MEDS: ENOXAPARIN INJ 30 MG/0.3 ML SYR SQ SCH (08:08)
[2019-07-10] MEDS: DONEPEZIL HCL 10 MG TAB PO SCH (08:10)
[2019-07-10 08:23] LABS: BUN Creatinine Ratio 24.6 (10-20); Calcium 8.6 mg/dl (8.5-10.1); Creatinine Clr Calc Pharmacy 57.2 ml/min; Est GFR (African American) 105.1; Est GFR (Non-African American) 90.7; Potassium 3.5 mmol/L (3.5-5.1)
[2019-07-10] MEDS: CHOLECALCIFEROL 1,000 UNITS TAB PO SCH (13:09)
[2019-07-10] MEDS: ASPIRIN 325 MG ECTAB PO SCH (13:09)
--- NOTE | 2019-07-10 15:17 | Hospitalist Progress Note ---
Date of Service July 10, 2019 Assessment & Plan (1) Altered mental status: Reported 2.5 weeks of AMS, combativeness and overall functional decline, refusing food/meds, etc. Workup thus far with normal electrolytes aside from mild hypokalemia, CT head. UA with small amount of hematuria but does not appear to be infectious/inflammatory. Patient with history of chronic respiratory failure, emphysema noted on CXR, labs suggest some degree of chronic CO2 retention with renal compensation. -Observation to medical floor -Delirium prevention strategies -Optimize electrolytes -Gentle IVF -Trial of BiPAP -Haldol PRN agitation competitive with care -Palliative care evaluation (2) Chronic respiratory failure: BiPAP as above for acute on chronic respiratory failrue -Continue Albuterol PRN (3) Hypothyroidism: TSH within normal range -Continue Synthroid at home dose (4) Dementia: Patient with underlying dementia. 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 Resting in the bed. Patient is refusing to eat stating that she is not hungry. Patient is well known to palliative care. She is she is declining and she lost significant weight. Patient is poor historian. She denies fever chills chest pain shortness of breath abdominal pain frequency urgency hematuria dysuria hematemesis or melena. Review of Systems Review of Systems: All systems reviewed & are unremarkable except as noted in HPI & below Physical Exam Constitutional: WD/WN, vitals as above well developed, + cachectic and + frail appearing Eyes: PERRL, conjunctivae normal, anicteric sclerae ENMT: external ear and nose normal, oropharynx normal Neck: trachea midline, no thyromegaly Respiratory: Auscultation: + wheezes Cardiovascular: RRR, no murmur, no edema Chest (Breasts): normal inspection/palpation of breasts Gastrointestinal (Abdomen): normal bowel sounds, soft, nontender, no hepatosplenomegaly Musculoskeletal: no cyanosis or clubbing, extremities motor strength 5/5 Skin: no rashes, warm and dry Neurologic: patellar DTR's 2+ bilat, sensation intact Psychiatric: Dementia Genitourinary: no vaginal lesions, no adnexal mass Lymphatic: no cervical or axillary lymphadenopathy Results & Data Vital Signs (Past 12 Hours) Vital Signs Temp Pulse Resp BP Pulse Ox 07/10/19 07:15 36.4 C L 72 15 131/73 100 PG Care Time/CCT Total # of Minutes Spent Total Time Spent with Patient: Total time spent is greater than 50% in coordination of care (as documented) at patient's floor/unit and/or counseling patient: (1) Chronic respiratory failure Respiratory failure complication: hypercapnia Qualified Code(s): J96.12 - Chronic respiratory failure with hypercapnia (2) Dementia Dementia type: unspecified type (3) Hypothyroidism Hypothyroidism type: unspecified Qualified Code(s): E03.9 - Hypothyroidism, unspecified (4) Altered mental status Altered mental status type: unspecified Qualified Code(s): R41.82 - Altered mental status, unspecified
[2019-07-11] MEDS: LEVOTHYROXINE SODIUM 75 MCG TABLET PO SCH (06:02)
[2019-07-11] MEDS: ENOXAPARIN INJ 30 MG/0.3 ML SYR SQ SCH (09:18)
[2019-07-11] MEDS: DONEPEZIL HCL 10 MG TAB PO SCH (09:18)
--- NOTE | 2019-07-11 09:19 | Palliative Care Consultation ---
Date of Consultation July 11, 2019 Assessment & Plan (1) Goals of care, counseling/discussion: This is an 84 year old female who presented to the [facility] from [facility] ([facility]) with altered mental status that has been occurring over the past 2.5 weeks. Additional PMH includes chronic respiratory failure, emphysema, hypothyroidism, and dementia. The patient has been expressing disinterest with food and has been refusing food in the more recent months with significant weight loss as a result, 16 lb weight loss over the last 2 months. The patient does have a detailed Advanced Directive that she signed in 2006, along with a POLST form signed by the patient in 2017, both indicating she does not want any life-prolonging or heroic measures taken in her care. The patient plans to return to [facility]); however, they will not accept her unless she has Hospice Services on board. Palliative Care was consulted to assist with goals of care. -I met with the patient in room 380-1. Patient was confused and paranoid with my intentions of conversation. She was able to tell me her son Mark and Parish's name, along with her DIL Adina. She did keep saying "I won't listen to it, you can't tell me, no matter what". She also said, "I will go to [facility] before I do anything else". -I phoned the patients son, Mark who is currently in [place] for business and he understands her decline and is understanding of Hospice services. We discussed at length and he is appreciative and willing to have her return to [facility] under Hospice services, but would like to defer to his , Adina for the decision making since she is home and he is working away a lot. -I called the patient's DIL Adina and left a VM. Per son she does work until later in the afternoon. -Her mental status does wax and wane, from a FAST stage standpoint, I would think she would be borderline meeting hospice criteria, thinking she meets all of 6, indicating moderately severe dementia. -I would anticipate that she would meet hospice criteria due to her progressive weight loss of 16 lbs over the last 2 months. Protein-malnutrition would be an appropriate diagnosis. -Will need to confirm patients DIL wishes, await phone call back or try again later today. -PPS: 30% (2) Altered mental status: Altered mental status type: unspecified Qualified Code(s): R41.82 - Altered mental status, unspecified (3) Severe protein-calorie malnutrition: (4) Chronic respiratory failure: Respiratory failure complication: hypercapnia Qualified Code(s): J96.12 - Chronic respiratory failure with hypercapnia (5) Dementia: Dementia type: unspecified type History of Present Illness Reason for Consultation: goals of care Requesting Physician: Dr. Villar Attending Physician: Genaro Castellanos History of Present Illness This is an 84 year old female who presented to the [facility] from [facility] ([facility]) with altered mental status that has been occurring over the past 2.5 weeks. Additional PMH includes chronic respiratory failure, emphysema, hypothyroidism, and dementia. The patient has been expressing disinterest with food and has been refusing food in the more recent months with significant weight loss as a result, 16 lb weight loss over the last 2 months. The patient does have a detailed Advanced Directive that she signed in 2006, along with a POLST form signed by the patient in 2016, both indicating she does not want any life-prolonging or heroic measures taken in her care. The patient plans to return to [facility]; however, they will not accept her unless she has Hospice Services on board. Palliative Care was consulted to assist with goals of care. Please see Assessment and Plan for additional details. Thank you kindly for involving the palliative care team with this patient. We will follow and continue to assist with decision making as needed. Allergies Allergy/AdvReac Type Severity Reaction Status Date / Time morphine AdvReac Intermediate VOMITING Verified 07/09/19 17:45 codeine AdvReac Mild HALLUCINATI Verified 07/09/19 17:45 ONS Home Medications Home Medications Medication Instructions Recorded Confirmed Type albuterol sulfate [Ventolin HFA] 2 puff INHALATION Q6 PRN 11/15/18 07/09/19 History cholecalciferol (vitamin D3) 2,000 unit PO .DAILY@NOON 11/15/18 07/09/19 History [Vitamin D3] docusate sodium [Colace] 100 mg PO BID PRN 11/15/18 07/09/19 History ethambutol [Myambutol] 800 mg PO 3XWK 11/15/18 07/09/19 History levothyroxine [Synthroid] 75 mcg PO QAM 11/15/18 07/09/19 History donepezil 10 mg PO QAM 03/01/19 07/09/19 History acetaminophen 500 mg tablet 500 mg PO Q4H PRN tab 06/13/19 07/09/19 History aspirin 325 mg tablet 325 mg PO .DAILY@NOON #1 tab 06/13/19 07/09/19 History Patient History Medical History H/O: lung cancer Hypothyroidism Abnormal CT of the chest Acute bronchitis COPD (chronic obstructive pulmonary disease) Chest wall contusion DONYA (mycobacterium avium-intracellulare) infection Right rib fracture Surgical History S/P cataract surgery S/P hysterectomy S/P lobectomy of lung S/P total knee replacement Family History Other Family history non-contributory Social History Preferred Language: Kenyan Communication Ability: Effective Sorting Supervisor Required: No Beliefs That Will Affect Care: None marital status: / Current Living Situation: Alone and Personal Care Facility Current Living Situation Comment: lives at [facility] current occupational status: retired Feels Safe at Home: Yes Safety Concerns: Feels Safe At This Time Smoking Status: Former smoker Second Hand Exposure: No ; Hx Alcohol Use: No Hx Substance Use: No Review of Systems Review of Systems: Unobtainable due to cognitive status Physical Exam Constitutional: + ill appearing, + cachectic and + disheveled Eyes: PERRL, conjunctivae normal, anicteric sclerae ENMT: external ear and nose normal, oropharynx normal Neck: trachea midline, no thyromegaly Respiratory: normal respiratory effort, lungs clear to auscultation Cardiovascular: RRR, no murmur, no edema Gastrointestinal (Abdomen): concave Skin: no rashes, warm and dry + turgor decreased Psychiatric: Orientation: alert and oriented to person Thought Content: + paranoid Insight: + severely impaired insight Judgement: + severely impaired judgement Lymphatic: no cervical or axillary lymphadenopathy Results & Data Vital Signs (Past 12 Hours) Vital Signs Temp Pulse Resp BP Pulse Ox 07/11/19 07:48 36.5 C 87 16 152/85 H 99 07/10/19 22:51 36.5 C 78 16 154/71 H 100 PG Care Time/CCT Total # of Minutes Spent Total Time Spent with Patient: Total time spent is greater than 50% in coordination of care (as documented) at patient's floor/unit and/or counseling patient: 70 Time Spent Midlevel Total time spent 70 minutes with > 50% of that time spent assessing the patient, discussing goals of care with the patient's POA.
--- NOTE | 2019-07-11 12:00 | Hospitalist Progress Note ---
Date of Service July 11, 2019 Assessment & Plan (1) Altered mental status: This appears to be acute on chronic with baseline dementia Patient apparently had worsening confusion and altered mental status for the last 2.5 weeks The patient does reside at [facility] Once medically stable they have agreed to take the patient back on hospice services Palliative care services been consulted and are working with case management as well as family and placement facility for discharge planning Patient appears to be stable from a respiratory failure standpoint with a pH of 7.4 a PCO2 of 44 and a bicarb of 27 Patient has been afebrile since admission Patient does not appear to have any acute medical pathology to exacerbate dementia or cause delirium There is no acute intracranial abnormality on CT of the head without contrast Suspect that the altered mental status is worsening dementia Would agree to proceed on hospice and placement back at [facility] (2) Dementia: Appears to be progressive Continue Aricept Continue exercises for baseline dementia Plan on discharge back to [facility] on hospice (3) Chronic respiratory failure: Secondary to emphysema and EDAC Although chest x-ray shows some level of emphysema and serum labs show some CO2 retention, ABG does not support use of CPAP or BiPAP although patient did have evidence of bronchial malacia and crescentic extrinsic dynamic airway collapse at the distal portion of the left mainstem on bronchoscopy 09/13/2017. Would refrain from tight fitting noninvasive ventilation devices as that may cause agitation Patient currently oxygenating at 100% on 2 L/min of supplemental oxygen via nasal cannula Would discontinue supplemental oxygen unless SaO2 dropped below 88% Continue to monitor clinically No evidence of infection on chest x-ray No further imaging suggested (4) Hypothyroidism: Continue on home dose of levothyroxine (5) Severe protein-calorie malnutrition: Patient cachectic with a BMI of 16 Albumin marker 3.1 g/Tyesha No utility in further nutritional markers Encourage oral intake as tolerated Patient states that she is not hungry and does not want to eat more Agree with palliation and discharge on hospice (6) Electrolyte abnormality: Potassium 3.5 Magnesium 1.8 Replete gently as tolerated by patient (7) DONYA (mycobacterium avium-intracellulare) infection: Diagnosed by bronchoscopy 09/13/2017 Placed on ethambutol 400 mg 2 tabs 3 times weekly and azithromycin 500 mg 4 days/week as an outpatient In review of outpatient pulmonary notes, recommended to continue DONYA treatment indefinitely (8) H/O: lung cancer: History of non-small cell carcinoma Status post left upper lobectomy June 2011 Chest x-ray with no acute process (9) DVT prophylaxis: Continue enoxaparin with renal dosing as tolerated Please refer to Dr. Castellanos's addendum for further recommendations. Supervising Physician Co-Signing Physician Notes I discussed case with Nemesio Antonio. I agree with above note. Subjective Patient seen and examined at bedside. She does have demonstration of dementia but carries on adequate conversation. She knows her name and date of . She knows that she is in the hospital. She does appear to have some visual hallucinations as she is reporting that there is a man on the roof and that that is where the [employer] student sit for the games.She knows that it is June. She also reports that June is a month when the [employer] is held.She states that her several years ago but that she has 3 sons who live in the area.She seems to give adequate review of systems. The patient denies any shortness of breath, chest pain, sweats, rigors. She has no nausea or vomiting. She does state that she has not been eating a lot because she is not hungry.She denies any headache or visual changes.She has no acute complaints. Review of Systems Review of Systems: All systems reviewed & are unremarkable except as noted in HPI & below Physical Exam Physical Exam: GENERAL : No acute distress. Pleasant. Talkative EYES: No icterus, gaze conjugate. Pupils equal round and reactive to light NOSE: No evidence of epistaxis MOUTH: No lesions. Patient may have a early oral candidiasis.No difficulty swallowing. NECK: Supple. LUNGS: CTA B/L, no wheezes, rales or rhonchi HEART: Regular, rate controlled. No ectopy ABDOMEN: Soft, NT, ND, BS Present EXTREMITIES: No LE edema, pedal pulses intact. Patient does report some right hip pain and left knee pain. There is no evidence of edema or erythema. No evidence of infection.There is some pain with deep palpation. No appreciation of fluid wave.No pain with active or passive movement. NEURO: Awake and alert. Knows full name and date of . Knows that she is in the hospital. Knows the month.States that she grew up in [place] and made reference to [employer] being in June.She does not seem to have any physical neurological deficits on examination.No pronator drift.Patient does appear to have some hallucination as she is stating that there are men on the roof in the [employer] goes up there to watch the football games.She was lucid enough to ask me if anyone was on the roof. Results & Data Vital Signs (Past 12 Hours) Vital Signs Temp Pulse Resp BP Pulse Ox 07/11/19 07:48 36.5 C 87 16 152/85 H 99 Laboratory Results 07/10/19 07:24 07/10/19 07:[address] head/brain wo con CT DOSE: 690.05 mGycm HISTORY: Mental status change pt c/o ams TECHNIQUE: Multiaxial CT images of the head were performed without the use of intravenous contrast. A dose lowering technique was utilized adhering to the principles of ALARA. Comparison: 03/04/2019 Findings: The paranasal sinuses and mastoid air cells are clear. The calvarium and skull base are intact. The ventricles and sulci are within normal limits. There is no mass, hematoma, midline shift, or acute infarct. Significant chronic small vessel changes throughout both cerebral hemispheres. This is unchanged from the prior study. Impression: No acute intracranial abnormality. Chronic small vessel change. Electronically signed by: Dago Franklin M.D. 07/09/2019 4:17 PM XR chest 1V portable CLINICAL HISTORY: weakness dyspnea COMPARISON STUDY: 03/01/2019 FINDINGS: Diffuse 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 Left apical bleb-like changes unaltered. Chronic pleural thickening over the pulmonary apices considered chronic. IMPRESSION: Chronic and emphysematous change. No acute process. Electronically signed by: Dago Franklin M.D. 07/09/2019 3:58 PM PG Care Time/CCT Total # of Minutes Spent Total Time Spent with Patient: Total time spent is greater than 50% in coordination of care (as documented) at patient's floor/unit and/or counseling patient: 35 (1) Chronic respiratory failure Respiratory failure complication: hypercapnia Qualified Code(s): J96.12 - Chronic respiratory failure with hypercapnia (2) Dementia Dementia type: unspecified type (3) Hypothyroidism Hypothyroidism type: unspecified Qualified Code(s): E03.9 - Hypothyroidism, unspecified (4) Altered mental status Altered mental status type: unspecified Qualified Code(s): R41.82 - Altered mental status, unspecified
[2019-07-11] MEDS: CHOLECALCIFEROL 1,000 UNITS TAB PO SCH (12:32)
[2019-07-11] MEDS: ETHAMBUTOL HCL 400 MG TAB PO SCH (12:32)
[2019-07-11] MEDS: ASPIRIN 325 MG ECTAB PO SCH (12:32)
[2019-07-11] MEDS ORDERED: POTASSIUM CHLORIDE 10 MEQ TABCR PO STA (16:56)
[2019-07-11] MEDS: MAGNESIUM SULFATE / D5W 1 GM/100 ML BAG IV SCH ×2 (19:29→20:23)
[2019-07-12] MEDS: LEVOTHYROXINE SODIUM 75 MCG TABLET PO SCH (05:47)
[2019-07-12 07:58] LABS: Hematocrit (blood only) 40.6 % (37-47); Hemoglobin 13.2 g/dL (12.0-16.0); Mean Corpuscular Hemoglobin 28.2 pg (25-34); Mean Corpuscular Hgb Conc 32.5 g/dL (32-36); Mean Corpuscular Volume 86.8 fL (80-100); Mean Platelet Volume 9.5 fL (7.4-10.4); Platelet Count 325 K/uL (130-400); RDW Coefficient of Variation 14.7 % (11.5-14.5); Red Blood Count 4.68 M/uL (4.2-5.4); White Blood Count 4.92 K/uL (4.8-10.8)
[2019-07-12 08:50] LABS: BUN Creatinine Ratio 15.5 (10-20); Calcium 9.2 mg/dl (8.5-10.1); Creatinine Clr Calc Pharmacy 49.6 ml/min; Est GFR (African American) 100.3; Est GFR (Non-African American) 86.6; Magnesium 2.4 mg/dl (1.8-2.4); Potassium 4.6 mmol/L (3.5-5.1)
[2019-07-12] MEDS: ENOXAPARIN INJ 30 MG/0.3 ML SYR SQ SCH (09:03)
[2019-07-12] MEDS: DONEPEZIL HCL 10 MG TAB PO SCH (09:03)
--- NOTE | 2019-07-12 12:11 | Hospitalist Progress Note ---
Date of Service July 12, 2019 Assessment & Plan (1) Altered mental status: This appears to be acute on chronic with baseline dementia This is not appear to be a metabolic encephalopathy. Electrolytes are generally balanced. Patient appears to be stable from a respiratory failure standpoint with a pH of 7.4 a PCO2 of 44 and a bicarb of 27 Patient continues to be afebrile There is no acute intracranial abnormality on CT of the head without contrast Suspect that the altered mental status is worsening dementia Would agree to proceed on hospice Family meeting today at 1415 (2) Dementia: Appears to be progressive Does not appear to be metabolic in etiology Continue Aricept Continue exercises for baseline dementia Probable discharge on hospice tomorrow (3) Chronic respiratory failure: Secondary to emphysema and EDAC Although chest x-ray shows some level of emphysema and serum labs show some CO2 retention, ABG does not support use of CPAP or BiPAP although patient did have evidence of bronchial malacia and crescentic extrinsic dynamic airway collapse at the distal portion of the left mainstem on bronchoscopy 09/13/2017. Would refrain from tight fitting noninvasive ventilation devices as that may cause agitation Patient currently oxygenating at 100% on 2 L/min of supplemental oxygen via nasal cannula Would discontinue supplemental oxygen unless SaO2 dropped below 88% Continue to monitor clinically No evidence of infection on chest x-ray No further imaging suggested Continue supportive care (4) Hypothyroidism: Continue on home dose of levothyroxine (5) Severe protein-calorie malnutrition: Patient cachectic with a BMI of 16 Albumin marker 3.1 g/Tyesha No utility in further nutritional markers Encourage oral intake as tolerated Can attempt nutritional supplements such as boost or Hiko Instant Breakfast Patient states that she is not hungry and does not want to eat more Agree with palliation and discharge on hospice (6) Electrolyte abnormality: Potassium magnesium are now adequately repleted Follow labs every 2 to 3 days while inpatient (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 Patient has no complaints of mouth or throat pain and denies any difficulty swallowing. (10) Left knee pain: Patient reports that this is chronic Multiple surgeries to that knee No crepitus or evidence of effusion We will order topical diclofenac and see if this helps (11) DVT prophylaxis: Continue enoxaparin with renal dosing as tolerated while inpatient Anticipate discharge tomorrow Please refer to Dr. Castellanos's addendum for further recommendations. Supervising Physician Co-Signing Physician Notes Discussed case with APC. Reviewed above note. Patient was not seen by me. Subjective Is a pleasant 84-year-old female that is seen at bedside. She is currently being seen by the palliative service as well and we are working on hospice placement for her with most likely discharge tomorrow. The patient has no complaints of fever, chills, sweats, rigors. She has no cough or sputum production. She does report some pain to the left knee which is been chronic. She reports that she has had multiple surgeries to that knee. There is no crepitus with active range of motion but the patient does have guarding and will not allow me to do a full assessment. Light touch reveals no heat and there is no erythema or other signs or symptoms of infection. The patient denies any nausea, vomiting, diarrhea. She has no abdominal pain. She has had little to eat and states that she is not hungry. She also seems to be depressed. While I was in the room the patient's son Parish called to speak with her and she refused to speak to him saying that she "did not feel well". When asked her what was wrong she could not identify why she did not feel well. The patient has no other acute complaints. Review of Systems Review of Systems: All systems reviewed & are unremarkable except as noted in HPI & below Physical Exam Physical Exam: GENERAL : No acute distress. Flat affect. Appears depressed EYES: No icterus, gaze conjugate. Pupils equal round and reactive to light NOSE: No evidence of epistaxis MOUTH: No lesions. Patient appears to have early onset of oral candidiasis. NECK: Supple LUNGS: CTA B/L, no wheezes, rales or rhonchi. Breath sounds equal to the bases HEART: Regular, rate controlled. No appreciation of ectopy, murmurs, rubs. ABDOMEN: Soft, NT, ND, BS Present. No guarding or tenderness to deep palpation EXTREMITIES: No LE edema, pedal pulses intact. Well-healed surgical scars over the left knee. Patient does report tenderness over this knee. There is no crepitus. Unable to do full exam due to guarding. No apparent effusion. NEURO: Awake and alert. Flat affect. Appears depressed. Results & Data Vital Signs (Past 12 Hours) Vital Signs Temp Pulse Resp BP Pulse Ox 07/12/19 07:30 36.6 C 71 16 142/82 H 100 Laboratory Results 07/12/19 07:38 07/12/19 07:38 PG Care Time/CCT Total # of Minutes Spent Total Time Spent with Patient: Total time spent is greater than 50% in coordination of care (as documented) at patient's floor/unit and/or counseling patient: 20 (1) Chronic respiratory failure Respiratory failure complication: hypercapnia Qualified Code(s): J96.12 - Chronic respiratory failure with hypercapnia (2) Dementia Dementia type: unspecified type (3) Hypothyroidism Hypothyroidism type: unspecified Qualified Code(s): E03.9 - Hypothyroidism, unspecified (4) Altered mental status Altered mental status type: unspecified Qualified Code(s): R41.82 - Altered mental status, unspecified
[2019-07-12] MEDS: CHOLECALCIFEROL 1,000 UNITS TAB PO SCH (13:11)
[2019-07-12] MEDS: ASPIRIN 325 MG ECTAB PO SCH (13:12)
[2019-07-12] MEDS: NYSTATIN SUSP 500,000 U/5 ML UDC PO SCH ×3 (13:33→20:26)
[2019-07-12] MEDS: DICLOFENAC SOD 1% GEL 100 GM TUBE EXT SCH ×2 (13:34→20:26)
[2019-07-13] MEDS: DICLOFENAC SOD 1% GEL 100 GM TUBE EXT SCH ×2 (05:59→13:27)
[2019-07-13] MEDS: LEVOTHYROXINE SODIUM 75 MCG TABLET PO SCH (05:59)
[2019-07-13] MEDS: ENOXAPARIN INJ 30 MG/0.3 ML SYR SQ SCH (07:43)
[2019-07-13] MEDS: DONEPEZIL HCL 10 MG TAB PO SCH (08:54)
[2019-07-13] MEDS: NYSTATIN SUSP 500,000 U/5 ML UDC PO SCH ×3 (08:54→16:59)
--- NOTE | 2019-07-13 12:17 | Discharge Summary ---
Date of Service July 13, 2019 Admission HPI Per Admitting Provider Zahira Orozco is an 84yo C female presenting from her [place] [facility] with confusion. Patient unable to provide much history. Family not at bedside during my encounter. History obtained through record review and discussion with ER staff. Patient was brought in with complaint of confusion starting approximately 2.5 weeks ago. Patient has been refusing food and medication as well as acting combative toward staff. Patient reports that she "wants to be left alone to ". Patient states that she is not in any pain. She is able to state her name and say that she is in the hospital. Follows most commands but is overall uncooperative with exam. ER Course: Ceftriaxone, Ativan, KCL, NSS Admission Exam Per Admitting Provider General: patient resting comfortably, wakes to light touch then falls back asleep, NAD, frail/cachectic elderly female, non-toxic in appearance, oriented to self and location. Skin: thin, warm, dry, intact, no rashes or lesions HEENT: NC/AT, PERRL, anicteric sclera, conjunctiva without injection, external ear normal to inspection and nontender, nares patent, dry mucus membranes, dentures in place, no oropharyngeal lesions, neck supple, trachea midline, no LAD, no thyromegaly, no JVD Heart: +S1/S2, regular, no m/r/g Lungs: equal air entry bilaterally, no rales/rhonchi/wheezes, poor effort Abd: +BS, soft, NT/ND, no masses/organomegaly/ascites Ext: warm, 2+ pulses in UE/LE bilaterally, no clubbing/cyanosis or edema Neuro: nonfocal, patient AA&O x 2, speech intact, no facial droop, moving all extremities on command with equal strength 5/5, disgruntled during exam Principal Diagnosis Altered mental status Discharge Exam GENERAL : No acute distress. Sitting in bedside chair EYES: No icterus, gaze conjugate NOSE: No evidence of epistaxis. Nasal cannula in place MOUTH: No lesions. Oral candidiasis is improved NECK: Supple LUNGS: CTA B/L, no wheezes, rales or rhonchi HEART: Regular, rate controlled ABDOMEN: Soft, NT, ND, BS Present. No rebound tenderness with palpation EXTREMITIES: No LE edema, pedal pulses intact NEURO: Awake and alert. Discharge Data Allergies Allergy/AdvReac Type Severity Reaction Status Date / Time morphine AdvReac Intermediate VOMITING Verified 07/09/19 17:45 codeine AdvReac Mild HALLUCINATI Verified 07/09/19 17:45 ONS Consultations 07/09/19 19:11 ED Decision to Admit Stat 07/09/19 22:34 Consult Case Management - Discharge Planning Routine 07/10/19 15:35 Consult Palliative Care Routine Ordered Studies 07/09/19 15:34 CT head/brain wo con Stat Hospital Course (1) Altered mental status: This appears to be acute on chronic with baseline dementia This is not appear to be a metabolic encephalopathy. Electrolytes are generally balanced. Patient appears to be stable from a respiratory failure standpoint with a pH of 7.4 a PCO2 of 44 and a bicarb of 27 Patient continues to be afebrile There is no acute intracranial abnormality on CT of the head without contrast Suspect that the altered mental status is worsening dementia Discharge back to nursing facility on hospice (2) Dementia: Appears to be progressive Does not appear to be metabolic in etiology Continue Aricept Continue exercises for baseline dementia (3) Chronic respiratory failure: Secondary to emphysema and EDAC Although chest x-ray shows some level of emphysema and serum labs show some CO2 retention, ABG does not support use of CPAP or BiPAP although patient did have 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 Would refrain from tight fitting noninvasive ventilation devices as that may cause agitation Patient currently oxygenating well on 2 L/min of supplemental oxygen via nasal cannula Targeted SaO2 should be between 88-92% No evidence of infection on chest x-ray No further imaging suggested Continue supportive care (4) Hypothyroidism: Continue on home dose of levothyroxine (5) Severe protein-calorie malnutrition: Patient cachectic with a BMI of 16 Albumin marker 3.1 g/Tyesha No utility in further nutritional markers Encourage oral intake as tolerated Can attempt nutritional supplements such as boost or [place] Instant Breakfast Patient states that she is not hungry and does not want to eat more Agree with palliation and discharge on hospice (6) Electrolyte abnormality: Potassium magnesium are now adequately repleted (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 Patient has no complaints of mouth or throat pain and denies any difficulty swallowing. Physical exam shows improvement today (10) Left knee pain: Patient reports that this is chronic Multiple surgeries to that knee No crepitus or evidence of effusion Topical diclofenac with minimal improvement Continue weight bearing exercise as tolerated (11) DVT prophylaxis: Continue enoxaparin with renal dosing as tolerated while inpatient Total Time Total Time Spent Total Time Spent (In Minutes): 40 Total Time Includes: Examination of the Patient, Discharge Planning, Medication Reconciliation, Communication With Other Providers and Other (Problem reconciliation) Discharge Plan Discharge Items Patient Disposition: Hospice - Medical Facility Reason For Visit: DELIRIUM Discharge Diagnosis: Altered mental status Discharge Goals: Decrease discomfort and Improve function Activity: Resume your previous activity Lifting: Gradually increase as tolerated Bathing: No limitations Sexual Activity: When tolerated Exercise/Sports: Gradually increase as tolerated Weightbearing: Full weightbearing Non-emergency contact: Primary Care Provider Call non-emergency contact if: you have any medication questions Follow-up/Referrals: Anabella Burgos [Primary Care Provider] - Diet: Regular Addtl Provider Instructions: Discharge on hospice. Prescriptions: New nystatin 100,000 unit/mL Suspension 5 ml PO QID Qty: 140 RF: 0 diclofenac sodium [Voltaren] 1 % Gel 1 applic EXT Q8 PRN (Reason: pain) Qty: 1 RF: 0 Continued acetaminophen 500 mg tablet 500 mg PO Q4H PRN (Reason: Pain) RF: 0 aspirin 325 mg tablet 325 mg PO .DAILY@NOON Qty: 1 RF: 0 levothyroxine [Synthroid] 75 mcg tablet 75 mcg PO QAM RF: 0 ethambutol [Myambutol] 400 mg tablet 800 mg PO 3XWK RF: 0 docusate sodium [Colace] 100 mg Capsule 100 mg PO BID PRN (Reason: Constipation) RF: 0 albuterol sulfate [Ventolin HFA] 90 mcg/actuation HFA aerosol inhaler 2 puff Inhalation Q6 PRN (Reason: Shortness Of Breath Or Wheezing) RF: 0 cholecalciferol (vitamin D3) [Vitamin D3] 2,000 unit Capsule 2,000 unit PO .DAILY@NOON RF: 0 donepezil 10 mg tablet 10 mg PO QAM RF: 0 Stand-Alone Forms: My [facility] Discharge Orders: Discharge Order (Routine); Ordered 07/13/19 Ordered By: Genaro Castellanos Admission Data Admit Date/Time: 07/10/19 19:10 Attending Provider: Genaro Castellanos Admit Provider: Emerita Carranza Primary Care Provider: Anabella Burgos Other Providers: Emerita Carranza ; Loly Boothe Service: Medical Other Interventions: Discharge Summary Assessment (RN) Last Done: 07/13/19 13:46 DC Date/Time DO NOT enter until pt leaves facility: 07/13/19 18:11 Supervising Physician Co-Signing Physician Notes Patient was seen an examined by myself. I also discussed case with APC. I reviewed discharge plan. During my face to face encounter, I performed a history and physical examination. Patient has baseline dementia and was not able to participate in the conversation. Patient will be discharged on hospice. Will continue aricept for dementia.
[2019-07-13] MEDS: ETHAMBUTOL HCL 400 MG TAB PO SCH ×2 (12:20→16:58)
[2019-07-13] MEDS: ASPIRIN 325 MG ECTAB PO SCH (12:20)
[2019-07-13] MEDS: CHOLECALCIFEROL 1,000 UNITS TAB PO SCH (12:20)
[2019-07-13] MEDS ORDERED: LACTULOSE SYRUP 30 GM/45 ML UDP PO ONE (15:15)
--- NOTE | 2019-07-22 21:30 | Discharge Summary ---
Date of Service July 13, 2019 Admission HPI Per Admitting Provider Zahira Orozco is an 84yo C female presenting from her custodial with confusion. Patient unable to provide much history. Family not at bedside during my encounter. History obtained through record review and discussion with ER staff. Patient was brought in with complaint of confusion starting approximately 2.5 weeks ago. Patient has been refusing food and medication as well as acting combative toward staff. Patient reports that she "wants to be left alone to ". Patient states that she is not in any pain. She is able to state her name and say that she is in the hospital. Follows most commands but is overall uncooperative with exam. ER Course: Ceftriaxone, Ativan, KCL, NSS Principal Diagnosis altered mental status Discharge Exam Constitutional WD/WN, vitals as above well developed, + cachectic and + frail appearing Eyes PERRL, conjunctivae normal, anicteric sclerae ENMT external ear and nose normal, oropharynx normal Neck trachea midline, no thyromegaly Cardiovascular RRR, no murmur, no edema Chest (Breasts) normal inspection/palpation of breasts Gastrointestinal (Abdomen) normal bowel sounds, soft, nontender, no hepatosplenomegaly Musculoskeletal no cyanosis or clubbing, extremities motor strength 5/5 Skin no rashes, warm and dry Neurologic patellar DTR's 2+ bilat, sensation intact Genitourinary no vaginal lesions, no adnexal mass Lymphatic no cervical or axillary lymphadenopathy Discharge Data Allergies Allergy/AdvReac Type Severity Reaction Status Date / Time morphine AdvReac Intermediate VOMITING Verified 07/09/19 17:45 codeine AdvReac Mild HALLUCINATI Verified 07/09/19 17:45 ONS Consultations 07/09/19 19:11 ED Decision to Admit Stat 07/09/19 22:34 Consult Case Management - Discharge Planning Routine 07/10/19 15:35 Consult Palliative Care Routine Ordered Studies 07/09/19 15:34 CT head/brain wo con Stat Hospital Course (1) Altered mental status: This appears to be acute on chronic with baseline dementia This is not appear to be a metabolic encephalopathy. Electrolytes are generally balanced. Patient appears to be stable from a respiratory failure standpoint with a pH of 7.4 a PCO2 of 44 and a bicarb of 27 Patient continues to be afebrile There is no acute intracranial abnormality on CT of the head without contrast Suspect that the altered mental status is worsening dementia Discharge back to nursing facility on hospice (2) Dementia: Patient with underlying dementia. 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 -Continue ethambutol -Droplet precautions F/E/N - LR at 75mL/hr x 1 liter, K repleted, repeat BMP in AM, regular diet as tolerated, encourage PO intake Ppx - Lovenox 30 Code - Full per review of records Dispo - Observation to medical floor (8) H/O: lung cancer: (9) Oral candidiasis: (10) Left knee pain: (11) DVT prophylaxis: Total Time Total Time Spent Total Time Spent (In Minutes): 40 Discharge Plan Discharge Items Patient Disposition: Hospice - Medical Facility Reason For Visit: DELIRIUM Discharge Diagnosis: Altered mental status Discharge Goals: Decrease discomfort and Improve function Activity: Resume your previous activity Lifting: Gradually increase as tolerated Bathing: No limitations Sexual Activity: When tolerated Exercise/Sports: Gradually increase as tolerated Weightbearing: Full weightbearing Non-emergency contact: Primary Care Provider Call non-emergency contact if: you have any medication questions Follow-up/Referrals: Anabelal Burgos [Primary Care Provider] - Diet: Regular Addtl Provider Instructions: Discharge on hospice. Prescriptions: New nystatin 100,000 unit/mL Suspension 5 ml PO QID Qty: 140 RF: 0 diclofenac sodium [Voltaren] 1 % Gel 1 applic EXT Q8 PRN (Reason: pain) Qty: 1 RF: 0 Continued acetaminophen 500 mg tablet 500 mg PO Q4H PRN (Reason: Pain) RF: 0 aspirin 325 mg tablet 325 mg PO .DAILY@NOON Qty: 1 RF: 0 levothyroxine [Synthroid] 75 mcg tablet 75 mcg PO QAM RF: 0 ethambutol [Myambutol] 400 mg tablet 800 mg PO 3XWK RF: 0 docusate sodium [Colace] 100 mg Capsule 100 mg PO BID PRN (Reason: Constipation) RF: 0 albuterol sulfate [Ventolin HFA] 90 mcg/actuation HFA aerosol inhaler 2 puff Inhalation Q6 PRN (Reason: Shortness Of Breath Or Wheezing) RF: 0 cholecalciferol (vitamin D3) [Vitamin D3] 2,000 unit Capsule 2,000 unit PO .DAILY@NOON RF: 0 donepezil 10 mg tablet 10 mg PO QAM RF: 0 Stand-Alone Forms: Count Includes [facility] Discharge Orders: Discharge Order (Routine); Ordered 07/13/19 Ordered By: Genaro Castellanos Admission Data Admit Date/Time: 07/10/19 19:10 Attending Provider: Genaro Castellanos Admit Provider: Emerita Carranza Primary Care Provider: Anabella Burgos Other Providers: Emerita Carranza ; Loly Boothe Service: Medical Other Interventions: Discharge Summary Assessment (RN) Last Done: 07/13/19 13:46 DC Date/Time DO NOT enter until pt leaves facility: 07/13/19 18:11
== END 2019-07-13 18:11 | disposition hospice, inpatient (51) | DRG 189 ==
LOC: 3N 15:18 → ED 15:18 → SUATTDRO 20:13 → 3N 22:25 → SUATTDRO 07-10 19:10
DX: Z51.5 Encounter for palliative care; J96.20 Acute and chronic respiratory failure, unspecified whether with hypoxia or hypercapnia; M25.562 Pain in left knee; Z68.1 Body mass index [BMI] 19.9 or less, adult; F03.90 Unspecified dementia, unspecified severity, without behavioral disturbance, psychotic disturbance, mood disturbance, and anxiety; Z79.82 Long term (current) use of aspirin; A31.0 Pulmonary mycobacterial infection; Z88.5 Allergy status to narcotic agent; E87.2 Acidosis; E43 Unspecified severe protein-calorie malnutrition; J44.9 Chronic obstructive pulmonary disease, unspecified; E03.9 Hypothyroidism, unspecified; B37.0 Candidal stomatitis; R64 Cachexia